=== PATIENT | female | born 1960 | race Caucasian/White ===

== ENCOUNTER 2023-12-25 17:21 | Emergency (ER) | payer OTHER, SELFPAY ==
[2023-12-25 17:22] VITALS: BP 130/75; PULSE 65; RESP 18; TEMP 36.2; O2SAT 96; BMI 27.6
--- NOTE | 2023-12-25 18:58 | EDS_ITS ---
HPI <DADA Lawson - Last Filed: 12/25/23 21:47> History of Present Illness Chief Complaint: Edema Narrative Narrative: Patient presenting today with bilateral lower extremity edema she has had over the past 2 weeks. She reports that she did see her PCP for this, they obtained blood work about 2 weeks ago and told her that everything looked normal except that her cholesterol was slightly high. She denies any history of CHF. She reports that she does spend a lot time standing throughout the day. The swelling does get slightly better overnight but does not completely go away. She denies any history of blood clots or recent surgery/procedures/ travel/immobilization. She reports that her legs feel tight but do not necessarily hurt. She denies any chest pain or shortness of breath. PFSH <DADA Lawson - Last Filed: 12/25/23 21:47> [facility] Medical History no medical history Home Medications NK 12/25/23 [History Last Taken Unknown] furosemide 20 mg tablet (Lasix) 20 mg PO DAILY #7 tabs 12/25/23 [Rx Last Taken Unknown] Allergy/AdvReac Type Severity Reaction Status Date / Time No Known Allergies Allergy Verified 12/25/23 17:22 Social History Smoking Status: Never smoker ROS <DADA Lawson - Last Filed: 12/25/23 21:47> ROS ED Constitutional Constitutional ED: Denies chills or fever(s) Cardiovascular Cardiovascular: Denies chest pain Respiratory/Chest Respiratory/Chest: Denies cough or dyspnea Gastrointestinal Gastrointestinal: Denies abdominal pain, nausea or vomiting Musculoskeletal Musculoskeletal: Denies arthralgias or myalgias Integumentary Denies rash Neurologic Neurologic: Denies paresthesias or weakness EXAM <DADA Lawson - Last Filed: 12/25/23 21:47> Physical Exam Const Vital Signs: 12/25/23 17:22 12/25/23 18:53 12/25/23 19:21 Temperature 97.2 F L Temperature Source Temporal Pulse Rate 65 65 Respiratory Rate 18 16 Respiratory Effort Normal Respiratory Pattern Normal Blood Pressure 130/75 H 129/74 H Blood Pressure Mean 93 92 Pulse Ox 96 96 Oxygen Delivery Method Room Air Room Air 12/25/23 19:55 Temperature 98.4 F Temperature Source Pulse Rate 65 Respiratory Rate 19 H Respiratory Effort Respiratory Pattern Blood Pressure 138/86 H Blood Pressure Mean 103 Pulse Ox 96 Oxygen Delivery Method Positive well nourished, well developed and no apparent distress General Appearance ED: well developed HEENT Reports normocephalic and head/scalp atraumatic Mouth ED: Yes moist mucous membranes normal Eyes PERRL and EOMs intact bilaterally Neck full ROM and supple Chest Wall inspection of chest normal Resp normal respiratory effort and clear to auscultation bilaterally Cardio regular rate and regular rhythm GI soft to palpation, non-tender, non-distended and no masses Back/Spine normal ROM and normal to inspection Extremity full ROM Extremity Narrative: Bilateral 1+ pitting edema below the knees. Bilateral DP pulse 2+, good capillary refill, sensation intact Neuro oriented x3, CN's II-XII intact bilaterally, moves all extremities, no focal motor deficits and no sensory deficits noted Sensorium / Orientation: awake and alert Psych mental status grossly normal and thought process normal Skin no rashes or lesions noted and no wounds <Dr. Taco Almonte MD - Last Filed: 12/25/23 20:17> Physical Exam Const Vital Signs: 12/25/23 17:22 12/25/23 18:53 12/25/23 19:21 Temperature 97.2 F L Temperature Source Temporal Pulse Rate 65 65 Respiratory Rate 18 16 Respiratory Effort Normal Respiratory Pattern Normal Blood Pressure 130/75 H 129/74 H Blood Pressure Mean 93 92 Pulse Ox 96 96 Oxygen Delivery Method Room Air Room Air 12/25/23 19:55 Temperature 98.4 F Temperature Source Pulse Rate 65 Respiratory Rate 19 H Respiratory Effort Respiratory Pattern Blood Pressure 138/86 H Blood Pressure Mean 103 Pulse Ox 96 Oxygen Delivery Method [facility] <DADA Lawson - Last Filed: 12/25/23 21:47> [facility] Narrative Medical decision making narrative: Patient presenting today due to bilateral lower extremity edema that she has had over the past 2 weeks. The swelling is equal. Low suspicion for DVT. CBC and CMP obtained. We did consider running a BNP however our machine is down. Patient does have hypoalbuminemia at 1.8. She does not appear to be malnourished. We did discuss increasing protein in the diet. She will be given a weeks worth of 20 mg Lasix to be taken daily. I have encouraged that she follow-up closely with her PCP and she will be discharged home in stable condition. Lab Data Attestation: I reviewed the patient's lab results. Lab results narrative: Albumin 1.8 Labs: Laboratory Results - last 24 hr 12/25/23 19:00 WBC 4.9 RBC 4.59 Hgb 13.4 Hct 40.6 MCV 88.5 MCH 29.2 MCHC 33.0 RDW Std Deviation 42.0 RDW Coeff of Jose 13.0 Plt Count 255 MPV 9.3 Immature Gran % (Auto) 0.200 Neut % (Auto) 64.0 Lymph % (Auto) 25.3 [place] % (Auto) 7.3 Eos % (Auto) 2.6 Baso % (Auto) 0.6 Absolute Neuts (auto) 3.1 Absolute Lymphs (auto) 1.24 Nucleated RBC % 0 Sodium 138 Potassium 4.2 Chloride 108 H Carbon Dioxide 25.0 Anion Gap 5 BUN 16 Creatinine 0.62 Estim Creat Clear Calc 87.67 Est GFR (MDRD) Af Amer 124 Est GFR (MDRD) Non-Af 103 BUN/Creatinine Ratio 25.8 H Glucose 99 Calcium 8.0 L Total Bilirubin 0.20 AST 27 ALT 29 Alkaline Phosphatase 58 Total Protein 5.3 L Albumin 1.8 L Globulin 3.5 Albumin/Globulin Ratio 0.5 L <Dr. Taco Almonte MD - Last Filed: 12/25/23 20:17> [facility] Lab Data Labs: Laboratory Results - last 24 hr 12/25/23 19:00 WBC 4.9 RBC 4.59 Hgb 13.4 Hct 40.6 MCV 88.5 MCH 29.2 MCHC 33.0 RDW Std Deviation 42.0 RDW Coeff of Jose 13.0 Plt Count 255 MPV 9.3 Immature Gran % (Auto) 0.200 Neut % (Auto) 64.0 Lymph % (Auto) 25.3 [place] % (Auto) 7.3 Eos % (Auto) 2.6 Baso % (Auto) 0.6 Absolute Neuts (auto) 3.1 Absolute Lymphs (auto) 1.24 Nucleated RBC % 0 Sodium 138 Potassium 4.2 Chloride 108 H Carbon Dioxide 25.0 Anion Gap 5 BUN 16 Creatinine 0.62 Estim Creat Clear Calc 87.67 Est GFR (MDRD) Af Amer 124 Est GFR (MDRD) Non-Af 103 BUN/Creatinine Ratio 25.8 H Glucose 99 Calcium 8.0 L Total Bilirubin 0.20 AST 27 ALT 29 Alkaline Phosphatase 58 Total Protein 5.3 L Albumin 1.8 L Globulin 3.5 Albumin/Globulin Ratio 0.5 L Treatment and Re-Evaluation Comments:: I have personally performed a face to face assessment of the patient and have reviewed the KIRK Note. I performed a substantive portion of the visit including all aspects of the following. My liz findings include: History is 2 weeks of gradually worsening edema both lower extremities symmetr ically. No orthopnea, dyspnea, chest tightness, syncope, palpitations. Never had this before. No recent long immobilization or history of DVT. Exam is bilateral lower extremity edema up to the knees symmetric, no calf tenderness, signs of cellulitis, palpable cords. Lungs clear to auscultation. Medical Decison Making Labs reviewed. They show a low albumin level, which may be causing loss of oncotic pressure and responsible for the edema that is dependent in her lower extremities symmetrically. Low likelihood of venous thrombosis here. Patient had a BNP performed as an outpatient, our machine is down and we are not able to run it right now. Advise close outpatient follow- up, if she is not able to follow-up quickly at least I would recommend increasing protein intake in her diet which we discussed. Other additions or changes: [None] Discharge Plan Triage Chief Complaint: Edema ED Midlevel Provider: Miranda Guevara ED Provider: Taco Almonte Dx/Rx/DC Orders Clinical Impression: Lower extremity edema, Hypoalbuminemia Instructions: ED Peripheral Edema, Bilateral Prescriptions: New furosemide [Lasix] 20 mg tablet 20 mg PO DAILY Qty: 7 0RF No Action NK Primary Care Provider: Santi Segovia Referrals: Santi Segovia DO [Primary Care Provider] - 5-7 Days Activity Restrictions/Additional Instructions: Follow-up with your PCP and return for any worsening of your symptoms. Disposition Disposition: Home, Self Care Discharge Date/Time: 12/25/23 20:13
[2023-12-25 19:13] LABS: Absolute Lymphocyte Count 1.24 X10^3/uL (0.83-4.51); Absolute Neutrophil Count 3.1 X10^3/uL (2.0-7.7); Basophil# 0.03 X10^3/uL; Basophil% 0.6 % (0-1); Eosinophil# 0.13 X10^3/uL; Eosinophils% 2.6 % (0-5); Hematocrit 40.6 % (37-47); Hemoglobin 13.4 g/dL (12.0-15.0); Lymphocyte # 1.24 X10^3/ul (0.83-4.51); Lymphocyte % 25.3 % (19-41); Mean Corpuscular Hgb 29.2 pg (27.0-32.0); Mean Corpuscular Volume 88.5 fL (81-99); Mean Platelet Vol. 9.3 fl (6.2-12.0); Monocyte# 0.36 X10^3/uL; Monocyte% 7.3 % (0-10); NRBC Flagged by Analyzer 0 % (0-5); Neutrophil # 3.14 X10^3/uL (2.7-7.7); Platelet Count 255 K/mm3 (150-450); Red Blood Count 4.59 M/mm3 (4.2-5.4); White Blood Count 4.9 K/mm3 (4.4-11.0)
[2023-12-25 19:21] VITALS: BP 129/74; PULSE 65; RESP 16; O2SAT 96
[2023-12-25 19:32] LABS: ALB/GLOB Ratio 0.5 RATIO (0.9-2.4); AST(SGOT) 27 U/L (15-37); Alanine Aminotransfer ALT/SGPT 29 U/L (13-56); Albumin, Serum 1.8 g/dL (3.2-5.0); Alkaline Phosphatase 58 U/L (45-117); Anion Gap 5 (5-15); BUN 16 mg/dL (7-18); BUN/Creat Ratio 25.8 RATIO (10-20); Chloride 108 mmol/L (98-107); Creatinine, Serum 0.62 mg/dL (0.55-1.02); EST Glomerular Filtration Rate 103 mL/min (>60); Est Glom Filt Rate - Afr Amer 124 mL/min (>60); Estimated Creatinine Clearance 87.67 ml/min; Globulin 3.5 g/dL (2.2-4.2); Glucose 99 mg/dL (74-106); Potassium 4.2 mmol/L (3.5-5.1); Protein, Total 5.3 g/dL (6.4-8.2); Sodium Level 138 mmol/L (136-145)
[2023-12-25 19:55] VITALS: BP 138/86; PULSE 65; RESP 19; TEMP 36.9; O2SAT 96
== END 2023-12-25 20:13 | disposition home or self-care (01) ==
PROVIDERS: Physician Assistant; Emergency Provider Emergency Medicine; PCP Family Medicine; Visit Provider Emergency Medicine
DX: E88.09 Other disorders of plasma-protein metabolism, not elsewhere classified (principal); R60.0 Localized edema
CPT/HCPCS: 80053; 85025; 99283; A4216

== ENCOUNTER 2023-12-27 12:12 | Observation (INO) | payer OTHER, SELFPAY ==
[2023-12-27] VITALS (8 sets, daily range): BP systolic 130–136; BP diastolic 72–81; PULSE 58–87; RESP 16–19; TEMP 36.6–36.8; O2SAT 94–100; BMI 27.8; BMI 27.1
--- NOTE | 2023-12-27 15:07 | VDLE_ITS ---
Reason For Study: Bilateral leg swelling RIGHT LEFT GSV is normal. GSV is normal. CFV is compressible, spontaneous, phasic, CFV is compressible, spontaneous, phasic, competent and demonstrates normal competent, and demonstrates normal augmentation. augmentation. FV is compressible, spontaneous, phasic, FV is compressible, spontaneous, phasic, competent and demonstrates normal competent and demonstrates normal augmentation. augmentation. POP V is compressible, spontaneous, phasic, POP V is compressible, spontaneous, phasic, competent and demonstrates normal competent and demonstrates normal augmentation. augmentation. T/P Trunk is compressible. T/P Trunk is compressible. PTV is compressible. PTV is compressible. RT PerV is compressible. LT PerV is compressible. Procedure This is a venous duplex using B-mode, color flow and spectral Doppler. Exam performed portable in ED. A preliminary report was called and/or faxed to Dr. Paulson. VL/Venous Duplex US - Dwain Extrem Interpretation Summary No evidence for acute deep venous thrombosis bilateral lower extremities with p atent and compressible bilateral great saphenous veins. Ordering Physician: Katia Paulson Referring Physician: Santi Segovia Performed By: Anabella Cates RVT
--- NOTE | 2023-12-27 15:07 | CT_ITS ---
INDICATION: constipation, abdominal pain EXAMINATION: CT ABDOMEN AND PELVIS WITH CONTRAST - CT Abdomen And Pelvis W/ Contrast Injection TECHNIQUE: Helically acquired images were obtained of the abdomen and pelvis following IV contrast. A radiation dose optimization technique was used for this scan. IV Contrast dosage and agent: 100 cc [id number] Oral contrast: None. COMPARISON: None. FINDINGS: LOWER CHEST: Bibasilar dependent changes with trace pleural effusions. No cardiomegaly or pericardial effusion. LIVER: Hepatomegaly, 22 cm. No concerning focal mass. GALLBLADDER AND BILIARY TREE: Calcified gallstones. No gallbladder distension or wall edema. No intra- or extrahepatic biliary ductal dilation. PANCREAS: No focal cystic or solid mass. SPLEEN: Normal size without focal cystic or solid mass. ADRENAL GLANDS: No nodules. KIDNEYS AND URETERS: Normal renal size and position. No hydronephrosis. PERITONEUM: No free air. Trace pelvic ascites. BOWEL: Normal appendix. No stomach or bowel distension. Increased fluid contents in the descending colon. LYMPH NODES: No enlarged mesenteric or retroperitoneal lymph nodes. VESSELS: Aorta is non-dilated. URINARY BLADDER: Unremarkable. REPRODUCTIVE ORGANS: No pelvic masses. Prominent pelvic vessels. ABDOMINAL WALL: Fat-containing umbilical hernia. BONES: No acute or aggressive abnormality. CT/Abdomen/Pelvis W IV Cont ONLY IMPRESSION: Trace bibasilar pleural effusions. Bowel changes consistent with diarrheal illness. Cholelithiasis without CT changes of acute cholecystitis. Possible pelvic congestion syndrome. Electronically Signed: Zach Thakur MD at 17:11 EDT ,
--- NOTE | 2023-12-27 15:09 | EDS_ITS ---
HPI History of Present Illness Chief Complaint: Constipation Detail of Chief Complaint: Constipation and leg edema Informant: patient Narrative Narrative: Patient presents to the emergency department with complaint of constipation. Patient states she has not had a good bowel movement in 3 to 4 weeks. She had a small bowel movement today. That seem to relieve some of the pressure in her abdomen. Patient also states that she has had leg edema for about 3 weeks. Patient did have travel in November to [place]. She denies any chest pain or shortness of breath. No history of PE or DVT. She was seen in the emergency department 2 days ago for edema in her legs and was noted to have low albumin and was told to increase her protein intake and was started on Lasix 20 mg a day. Patient is only taken 1 dose of Lasix. PFSH PFSH Medical History no medical history Home Medications ?Medication ?Instructions ?Recorded ?Last Taken ?Type atorvastatin 40 mg tablet 40 mg PO QHS 12/27/23 12/26/23 History Allergy/AdvReac Type Severity Reaction Status Date / Time No Known Allergies Allergy Verified 12/27/23 12:15 Surgical History no surgical history Social History Smoking Status: Never smoker ROS ROS ED Review of Systems ROS Unobtainable: other Constitutional Constitutional ED: Reports lethargy; Denies chills, fever(s), sweats or weight loss Eyes Eyes: Denies blurry vision, change in vision or diplopia ENT ENT ED: Denies rhinorrhea or sore throat Cardiovascular Cardiovascular: Denies chest pain, orthopnea or racing heartbeat Respiratory/Chest Respiratory/Chest: Denies cough, dyspnea, dyspnea on exertion, orthopnea or sputum Gastrointestinal Gastrointestinal: Reports abdominal pain and constipation; Denies diarrhea, nausea or vomiting Genitourinary Genitourinary ED: Denies dysuria, hematuria or urinary frequency Musculoskeletal Musculoskeletal: Reports other Details: Bilateral leg edema ; Denies arthralgias, back pain, myalgias or neck pain Integumentary Denies abscess, Abrasions or rash Neurologic Neurologic: Denies headache(s) or weakness Psychiatric Psychiatric: Denies anxiety, depression or suicidal thoughts Endocrine Endocrinology: Denies polydipsia, polyphagia or polyuria Hematologic/Lymphatic Hematologic/Lymphatic: Denies easy bleeding, easy bruising or lymphadenopathy Allergic/Immunologic Allergic/Immunologic ED: Denies mouth swelling, tongue swelling or urticaria EXAM Physical Exam Const Vital Signs: 12/27/23 12:12 12/27/23 14:12 12/27/23 14:58 Temperature 98.2 F Temperature Source Temporal Pulse Rate 72 87 Respiratory Rate 18 18 Respiratory Effort Normal Non-Labored Respiratory Pattern Normal Blood Pressure 130/78 H 134/74 H Blood Pressure Mean 95 94 Pulse Ox 96 100 Oxygen Delivery Method Room Air Room Air 12/27/23 16:00 Temperature Temperature Source Pulse Rate 58 L Respiratory Rate 16 Respiratory Effort Respiratory Pattern Blood Pressure 134/79 H Blood Pressure Mean 97 Pulse Ox 94 Oxygen Delivery Method Room Air Positive well nourished and well developed General Appearance ED: well developed and NAD HEENT Reports TM's clear and moist mucous membranes normocephalic and atraumatic; Negative for trauma or tenderness Tympanic Membrane ED: Yes TM's clear Eyes PERRL and EOMs intact bilaterally General Eye ED: Negative for pale conjunctiva or scleral icterus Neck no lymphadenopathy, supple and no JVD General: Negative for tenderness Chest Wall inspection of chest normal and palpation of chest normal Chest: Negative for tenderness Resp normal respiratory effort and clear to auscultation bilaterally Effort and Inspection: Negative for respiratory distress or pain with movement Auscultation: Negative for rhonchi, wheezes or diminished lung sounds Cardio regular rate, regular rhythm, S1 normal heart sound, S2 normal heart sound and no murmurs Peripheral Pulses: pulses 2+ throughout GI normal to inspection, nondistended, normoactive bowel sounds, soft to palpation, non-distended and no masses GI Narrative: Mild diffuse tenderness. No rebound, rigidity, or peritoneal signs. No mass palpated Back/Spine no CVA tenderness and no thoracic nor lumbar tenderness Extremity Extremity Narrative: +3 pitting edema both lower extremities from below the knees to the feet. No cellulitic changes. General Extremety ED: Negative for edema General Extremity: Negative for edema Neuro oriented x3, CN's II-XII intact bilaterally, no sensory deficits noted and gait normal Sensorium / Orientation: awake, alert, oriented to person, oriented to place and oriented to time Motor Exam: strength 5/5 throughout and strength abnormal Psych mental status grossly normal Skin no rashes or lesions noted and no wounds MDM MDM MDM Narrative Medical decision making narrative: Patient presents with constipation and edema to both lower extremities. Patient has not been eating like normal. She did have a bowel movement this morning. IV line established. CBC with differential white count 5.9 with hemoglobin 12.6 and platelet count of 265. Chemistries unremarkable. BNP slightly elevated 104.3. Albumin was 0.5. CT scan of the abdomen pelvis obtained showed gallstones without evidence of cholecystitis and showed possible pelvic congesti on syndrome. Patient had trace bilateral pleural effusions. Patient was ordered Lasix 40 mg IV. Discussed case with hospitalist will evaluate patient for admission for an observation period for diuresis. Lab Data Attestation: I reviewed the patient's lab results. Labs: Laboratory Results - last 24 hr 12/27/23 15:20 WBC 5.9 RBC 4.43 Hgb 12.6 Hct 38.7 MCV 87.4 MCH 28.4 MCHC 32.6 RDW Std Deviation 41.1 RDW Coeff of Jose 12.9 Plt Count 265 MPV 9.7 Immature Gran % (Auto) 0.200 Neut % (Auto) 68.5 Lymph % (Auto) 22.0 [place] % (Auto) 7.1 Eos % (Auto) 1.5 Baso % (Auto) 0.7 Absolute Neuts (auto) 4.1 Absolute Lymphs (auto) 1.30 Nucleated RBC % 0 Sodium 137 Potassium 3.9 Chloride 107 Carbon Dioxide 28.0 Anion Gap 2 L BUN 19 H Creatinine 0.64 Estim Creat Clear Calc 85.24 Est GFR (MDRD) Af Amer 119 Est GFR (MDRD) Non-Af 99 BUN/Creatinine Ratio 29.5 H Glucose 98 Calcium 8.1 L Total Bilirubin 0.30 AST 25 ALT 26 Alkaline Phosphatase 64 Troponin I High Sens 6 B-Natriuretic Peptide 104.3 H Total Protein 5.2 L Albumin 1.8 L Globulin 3.4 Albumin/Globulin Ratio 0.5 L Radiography Diagnostic Testing: Clinical Impression(s) from Imaging Studies Abdomen/Pelvis CT 12/27/23 15:07 IMPRESSION: Trace bibasilar pleural effusions. Bowel changes consistent with diarrheal illness. Cholelithiasis without CT changes of acute cholecystitis. Possible pelvic congestion syndrome. Electronically Signed: Zach Thakur MD at 17:11 EDT , EKG Initial EKG: Attestation: I personally reviewed and interpreted this EKG as follows: Comments: Sinus rhythm with rate of 63 bpm with no acute ST segment changes Discharge Plan Dx/Rx/DC Orders Clinical Impression: Leg edema, Constipation, Pleural effusion Disposition Disposition: Acute Care [facility]
[2023-12-27 15:35] LABS: Absolute Neutrophil Count 4.1 X10^3/uL (2.0-7.7); Basophil# 0.04 X10^3/uL; Basophil% 0.7 % (0-1); Eosinophil# 0.09 X10^3/uL; Eosinophils% 1.5 % (0-5); Hematocrit 38.7 % (37-47); Hemoglobin 12.6 g/dL (12.0-15.0); Mean Corp Hgb Conc 32.6 g/dL (32-36); Mean Corpuscular Hgb 28.4 pg (27.0-32.0); Mean Corpuscular Volume 87.4 fL (81-99); Mean Platelet Vol. 9.7 fl (6.2-12.0); Monocyte# 0.42 X10^3/uL; Monocyte% 7.1 % (0-10); NRBC Flagged by Analyzer 0 % (0-5); Neutrophil # 4.06 X10^3/uL (2.7-7.7); Neutrophil % 68.5 % (47-70); Platelet Count 265 K/mm3 (150-450); RBC Distribution Width CV 12.9 % (11.6-14.6); RBC Distribution Width SD 41.1 fl (35.1-43.9); Red Blood Count 4.43 M/mm3 (4.2-5.4); White Blood Count 5.9 K/mm3 (4.4-11.0)
[2023-12-27 16:07] LABS: ALB/GLOB Ratio 0.5 RATIO (0.9-2.4); AST(SGOT) 25 U/L (15-37); Alanine Aminotransfer ALT/SGPT 26 U/L (13-56); Albumin, Serum 1.8 g/dL (3.2-5.0); Alkaline Phosphatase 64 U/L (45-117); Anion Gap 2 (5-15); BNP,B-Type NATRIURETIC PEPTIDE 104.3 pg/mL (0-100); BUN 19 mg/dL (7-18); BUN/Creat Ratio 29.5 RATIO (10-20); Calcium,Total 8.1 mg/dL (8.5-10.1); Chloride 107 mmol/L (98-107); Creatinine, Serum 0.64 mg/dL (0.55-1.02); EST Glomerular Filtration Rate 99 mL/min (>60); Est Glom Filt Rate - Afr Amer 119 mL/min (>60); Estimated Creatinine Clearance 85.24 ml/min; Globulin 3.4 g/dL (2.2-4.2); Glucose 98 mg/dL (74-106); Potassium 3.9 mmol/L (3.5-5.1); Protein, Total 5.2 g/dL (6.4-8.2); Sodium Level 137 mmol/L (136-145); Troponin-I HS 6 pg/mL (3.0-54.0)
[2023-12-27] MEDS: Furosemide 40 MG/4 ML Vial IV ×2 (17:50→20:18)
--- NOTE | 2023-12-27 17:55 | PCM.HP.STD ---
HPI - General General Date of Admission: 12/27/23 Date of Service: 12/27/23 Chief Complaint: LE edema, constipation. HPI Narrative The patient is a 63 y/o F w/ PMHx: HLD w/ initial presentation to the ED on 12/25/2023 secondary to lower extremity swelling noted over the last 2 weeks with PCP evaluation with blood work obtained at that time with us reportedly cholesterol mildly elevated otherwise not severe appearing but she does report a significant history of standing throughout the day and the swelling does improve slightly overnight but does not completely dissipate with her legs noted to feel tight but not hurt with no dyspnea or chest discomfort prescribed Lasix 20 mg p.o. daily #7 tabs and discharged home at that time with plan to follow-up with her PCP who now represents to the [facility] ED on 12/27/23 with persistent edema to bilateral lower extremities although patient notes she only too one lasix tablet since her discharge from the ED 2 days prior in addition to reported sensation of constipation with no abdominal pain but given these symptoms prompted ED return for re-evaluation. Recent evaluation and current work-up in the ED included 12/25/2023 7 PM vital signs with T97.2, heart rate 65, respiratory rate 18, BP 129/74, respiratory rate 96% on room air, with noted CBC with WBC 4.9, hemoglobin 13.4, MCV 88.5, platelet 255 without marked shift, CMP with sodium 138, potassium 4.2, chloride 108, BUN/creatinine 16/0.62, GFR 103, calcium 8.0 otherwise hepatic profile not marked appearing, repeat presentation with 12/27/2023 with vital signs T90.2, heart rate 72, BP 130/70, respiratory rate 18, 96% on room air, CBC with WBC 5.9, hemoglobin 12.6, MCV 87.4, platelet 265 without marked shift, BNP 104.3, CMP with sodium 137, potassium 3.9, chloride 107, BUN/creatinine 19/0.64, GFR 99, hepatic profile with calcium 8.1 otherwise not marked appearing, troponin 6, EKG with SR without acute evidence of ischemia, CT with IV contrast abdomen and plevis with trace bilateral small effusions, cholelithasis with no evidence of cholecystitis, bowel changes consistent with possible recent diarrheal illness, possible pelvic congestion syndrome. In the ED patient administered lasix 40 mg IV x 1. [facility] Medical History (Updated 12/27/23 @ 17:[address] Mónica Turner MD) HLD (hyperlipidemia) Medical History no medical history Home Medications ?Medication ?Instructions ?Recorded ?Last Taken ?Type atorvastatin 40 mg tablet 40 mg PO QHS 12/27/23 12/26/23 History Allergy/AdvReac Type Severity Reaction Status Date / Time No Known Allergies Allergy Verified 12/27/23 12:15 Family History (Updated 12/27/23 @ 18:[address] Mónica Turner MD) Father CAD (coronary artery disease) Heart disease Hypertension Mother Heart disease Hypertension Heart failure Surgical History (Updated 12/27/23 @ 17:[address] Mónica Turner MD) No history of previous surgery Surgical History no surgical history Social History (Updated 12/27/23 @ 17:[address] Mónica Turner MD) household members: spouse and family Smoking Status: Never smoker alcohol intake: never substance use type: does not use ROS ROS Narrative Admission Review of Systems: CONSTITUTIONAL: No weight loss, fever, chills, + weakness or fatigue. HEENT: Eyes: No visual loss, blurred vision, double vision or yellow sclerae. Ears, Nose, Throat: No hearing loss, sneezing, congestion, runny nose or sore throat. SKIN: No rash or itching, lesions, wounds except + occasional red lesion on her thigh, return intermittently she notes. CARDIOVASCULAR: + Increasing lower extremity swelling. No chest pain, chest pressure or chest discomfort, palpitations, orthopnea, syncopal events. RESPIRATORY: No shortness of breath, cough or sputum, wheezing, hemoptysis. GASTROINTESTINAL: No anorexia, nausea, vomiting or diarrhea, abdominal pain, melena, BRBPR. GENITOURINARY: No dysuria, frequency, urgency or retention. NEUROLOGICAL: No headache, dizziness, syncope, paralysis, ataxia, numbness or tingling in the extremities, focal weakness, change in bowel or bladder control, seizure. MUSCULOSKELETAL: + muscle, back pain, joint pain or stiffness. HEMATOLOGIC: No anemia, bleeding or bruising. LYMPHATICS: No enlarged nodes. No history of splenectomy. PSYCHIATRIC: No history of depression or anxiety. ENDOCRINOLOGIC: No reports of sweating, cold or heat intolerance. No polyuria or polydipsia. ALLERGIES: No history of asthma, hives, eczema or rhinitis. Vital Signs Vital Signs Vital Signs: 12/27/23 12:12 12/27/23 14:12 12/27/23 14:58 Temperature 98.2 F Temperature Source Temporal Pulse Rate 72 87 Respiratory Rate 18 18 Respiratory Effort Normal Non-Labored Respiratory Pattern Normal Blood Pressure 130/78 H 134/74 H Blood Pressure Mean 95 94 Pulse Ox 96 100 Oxygen Delivery Method Room Air Room Air 12/27/23 16:00 Temperature Temperature Source Pulse Rate 58 L Respiratory Rate 16 Respiratory Effort Respiratory Pattern Blood Pressure 134/79 H Blood Pressure Mean 97 Pulse Ox 94 Oxygen Delivery Method Room Air Weight Weight: 157 lb 8 oz Body Mass Index (BMI) 27.8 Physical Exam Narrative Physical Examination: General: Awake, alert, oriented x 3 and cooperative, seated upright in the ED bed, no acute distress. Skin: Normal color, normal turgor, no icterus, no cyanosis except occasional staged ecchymoses, small regions on the inner thigh of slightly raised red circular fungal appearing lesion HEENT: AT/NC, EOMI, PERRLA, MMM, no carotid bruits or JVD noted. Lungs: Mildly diminished, appropriate effort, no evidence any distress, no appreciated rales, ronchi or wheezing. Heart: Mildly bradycardic with regular rhythm; no gallop, rub audible. Abdomen: Soft, overweight, NTTP, mildly distended with tympany, hyperactive bowel sounds, no appreciated HSM. Extremities: No cyanosis, no clubbing, notable pedal to knee 3+ pitting edema. Neurological: Patient awake, alert, oriented as noted, cognitive function intact; pupils equally reactive to light and accommodation, cranial nerves grossly normal, moving all 4 extremities, no focal deficits, strength mildly globally decreased secondary to acute presentation complaints. Psychiatric: Affect appears fatigued otherwise normal, no acute evidence of depressive or anxiety feelings. Results Lab / Micro Data 12/27/23 15:20 12/27/23 15:20 Labs: Laboratory Results - last 24 hr 12/27/23 15:20: WBC 5.9, RBC 4.43, Hgb 12.6, Hct 38.7, MCV 87.4, MCH 28.4, MCHC 32.6, RDW Std Deviation 41.1, RDW Coeff of Jose 12.9, Plt Count 265, MPV 9.7, Immature Gran % (Auto) 0.200, Neut % (Auto) 68.5, Lymph % (Auto) 22.0, [place] % (Auto) 7.1, Eos % (Auto) 1.5, Baso % (Auto) 0.7, Absolute Neuts (auto) 4.1, Absolute Lymphs (auto) 1.30, Nucleated RBC % 0, Sodium 137, Potassium 3.9, Chloride 107, Carbon Dioxide 28.0, Anion Gap 2 L, BUN 19 H, Creatinine 0.64, Estim Creat Clear Calc 85.24, Est GFR (MDRD) Af Amer 119, Est GFR (MDRD) Non-Af 99, BUN/Creatinine Ratio 29.5 H, Glucose 98, Calcium 8.1 L, Total Bilirubin 0.30, AST 25, ALT 26, Alkaline Phosphatase 64, Troponin I High Sens 6, B-Natriuretic Peptide 104.3 H, Total Protein 5.2 L, Albumin 1.8 L, Globulin 3.4, Albumin/Globulin Ratio 0.5 L Imaging Radiology Impression Abdomen/Pelvis CT 12/27/23 15:07 IMPRESSION: Trace bibasilar pleural effusions. Bowel changes consistent with diarrheal illness. Cholelithiasis without CT changes of acute cholecystitis. Possible pelvic congestion syndrome. Electronically Signed: Zach Thakur MD at 17:11 EDT Reading Location ID and State: [facility] / [place] Tel , Service support , Assessment & Plan Assessment/Plan (1) Leg edema: PLAN: Plan The patient is a 63 y/o F w/ PMHx: HLD w/ initial presentation to the ED on 12/25/2023 secondary to lower extremity swelling noted over the last 2 weeks with PCP evaluation with blood work obtained at that time with us reportedly cholesterol mildly elevated otherwise not severe appearing but she does report a significant history of standing throughout the day and the swelling does improve slightly overnight but does not completely dissipate with her legs noted to feel tight and onset of constipation prompting ED return 12/27/23. #1. Bilateral lower extremity edema, worsening, unclear etiology with concern for possible heart failure but also complicated by hypoalbuminemia and imaging concern of questionable plevic congestion syndrome: Patient administered IV lasix in the ED, will admit to PCU to be cautious, will maintain on cardiac telemetry to be cautious, will obtain cardiac enzyme series, continue IV lasix diuresis, monitor I/Os, initiate baby aspirin but defer other therapy given IV diuresis and BP low normal, will additionally obtain TSH and magnesium level. Will request echocardiogram. Will place snug HILLARY wraps.Will consult nutrition for education and teaching given low albumin/protein. Given concern on imaging of plevic congestion syndrome pending response to diuresis and evaluation to assure no cardiac etiology may need to then consider Vascular surgery consultation to further weight in about her pelvic venous system. #2. Constipation: Will administer MiraLAX dose x 1 and have as needed agents thereafter, continue to monitor. #3. Hyperlipidemia: We will continue patient on statin therapy, recent outpatient reported FLP thus will not repeat immediately. #4. Superficial fungal infection: Noted mostly on the inner thigh, will initiate antifungal topical agent. #5. DVT prophylaxis: Lovenox. #6. CODE status: Patient living will is in place but healthcare power of real estate associate attorney is not however her who is present would be her medical decision-maker if she was unable. Discussed CODE status at length including difference between FULL code, DNR-CCA and DNR-CC status. Following discussions about the differences in these status, requested Full Code although initially with discussions she is uncertain but for now will remain full code she notes. Advanced Care Planning Face to Face Time: 16 minutes. Charges/Coding Visit Charges Inpatient E&M: 64172 Init Hosp L2 Procedures Hospitalists Procedures: 72137 Advncd Care Plan 30 Min
[2023-12-27 18:23] LABS: Bacteria 0 SEEN /hpf (None Seen); Mucous, Urine 0 SEEN /hpf (<or=2+); Squamous Epithelial Cells - UA 0 SEEN /hpf (5-10)
[2023-12-27 18:27] LABS: Color, Urine Yellow (Yellow); Glucose, Dipstick Normal (Normal); Ketone-Dipstick 15 mg/dl (Negative); Leukocyte Esterase-Dipstick 25 /ul (Negative); Nitrite-Dipstick Negative (Negative); Occult Blood-Urine 25 /ul (Negative); Protein-Dipstick 500 mg/dl (Negative); Urine Bilirubin Dipstick Negative (Negative); Urine Clarity Clear (Clear); Urine Urobilinogen Normal (Normal)
[2023-12-27 18:31] LABS: Magnesium 2.1 mg/dL (1.6-2.6)
[2023-12-27 18:33] LABS: Red Blood Cells-Urine 0-5 SEEN /hpf (0-5); White Blood Cells 0-5 SEEN /hpf (0-5)
--- NOTE | 2023-12-27 19:22 | ECHOD_ITS ---
Reason For Study: CHF Procedure This was a 2D Doppler, Color Flow transthoracic echocardiogram. Exam performed portable in patient room. Left Ventricle Normal LV size. Left ventricular systolic function is normal. The estimated ejection fraction is 65 %. Normal diastololic function. Right Ventricle Normal RV size. Normal systolic function. Atria The left and right atria are normal. Mitral Valve The mitral valve is structurally normal. No prolapse or stenosis seen. Mild (1+) mitral valve insufficiency. Tricuspid Valve Normal tricuspid valve. Trivial tricuspid valve insufficiency. Pulmonary artery systolic pressure is 35 mmHg. Aortic Valve Trisinus/trileaflet aortic valve. Mild focal aortic valve thickening. Aortic sclerosis, no stenosis. Mild (1+) aortic valve insufficiency. Pulmonic Valve Normal pulmonic valve. Trivial pulmonic valve insufficiency. Great Vessels Normal aortic root. Pericardium/Pleural No pericardial effusion. Epicardial fat. MMode/2D Measurements & Calculations LVIDd: 4.8 cm IVSd: 0.80 cm Ao root diam: 2.9 cm LVIDs: 3.4 cm LVPWd: 0.88 cm RVDd: 3.5 cm FS: 29.8 % LAV(MOD-bp): 35.6 ml LVAd ap4: 25.1 cm2 SV(MOD-sp4): 46.7 ml LAV(MOD-bp) Indexed: 20.4 ml/m2 LVLd ap4: 7.6 cm LAV(MOD-sp2): 33.5 ml EDV(MOD-sp4): 69.1 ml LAV(MOD-sp4): 33.4 ml EDV(sp4-el): 71.0 ml LVAs ap4: 12.6 cm2 LVLs ap4: 6.2 cm ESV(MOD-sp4): 22.4 ml ESV(sp4-el): 21.6 ml EF(MOD-sp4): 67.6 % EF(sp4-el): 69.6 % SV(sp4-el): 49.4 ml LA A4 area: 15.0 cm2 LA dimension(2D): 3.4 cm RA A4 area: 14.8 cm2 TAPSE: 2.8 cm Time Measurements MV dec time: 0.23 sec Doppler Measurements & Calculations MV E max santi: 77.4 cm/sec Lat Peak E' Santi: 11.2 cm/sec Med Peak E' Santi: 9.2 cm/sec MV A max santi: 85.8 cm/sec E/E' lat: 6.9 E/E' med: 8.4 MV E/A: 0.90 Ao V2 max: 160.0 cm/sec LV V1 max: 143.6 cm/sec MV dec slope: 331.9 cm/sec2 Ao max P.2 mmHg LV V1 max P.2 mmHg Ao V2 mean: 109.8 cm/sec LV V1 mean P.2 mmHg Ao mean P.6 mmHg LV V1 mean: 93.9 cm/sec Ao V2 VTI: 39.8 cm LV V1 VTI: 34.3 cm AV (velocity ratio): 0.86 PA V2 max: 98.0 cm/sec TR max santi: 258.9 cm/sec TR max P.8 mmHg ECHO/Echo Complete Interpretation Summary The estimated ejection fraction is 65 %. Mild (1+) mitral valve insufficiency. Mild (1+) aortic valve insufficiency. Aortic sclerosis, no stenosis. Ordering Physician: Mónica Turner Referring Physician: Santi Segovia Performed By: Maria C Beckford RDCS, RVT
[2023-12-27] MEDS: Polyethylene Glycol 3350 17 GM PACKET PO (20:18)
[2023-12-27] MEDS: Atorvastatin Calcium 40 MG Tablet PO (20:18)
[2023-12-27 20:24] LABS: Troponin-I HS 6 pg/mL (3.0-54.0)
[2023-12-27 22:02] LABS: Troponin-I HS 7 pg/mL (3.0-54.0)
[2023-12-28 02:45] VITALS: BP 120/62; PULSE 73; RESP 18; TEMP 36.3; O2SAT 94
[2023-12-28] MEDS: Nystatin Ointment 1 APPLIC TOPICAL ×2 (05:20→14:20)
[2023-12-28 06:00] VITALS: BMI 27.1
[2023-12-28 07:39] LABS: Absolute Lymphocyte Count 1.29 X10^3/uL (0.83-4.51); Absolute Neutrophil Count 2.9 X10^3/uL (2.0-7.7); Basophil# 0.03 X10^3/uL; Basophil% 0.6 % (0-1); Eosinophil# 0.19 X10^3/uL; Eosinophils% 3.9 % (0-5); Hematocrit 37.2 % (37-47); Lymphocyte # 1.29 X10^3/ul (0.83-4.51); Lymphocyte % 26.3 % (19-41); Mean Corp Hgb Conc 32.3 g/dL (32-36); Mean Corpuscular Hgb 28.4 pg (27.0-32.0); Mean Corpuscular Volume 87.9 fL (81-99); Mean Platelet Vol. 10.5 fl (6.2-12.0); Monocyte# 0.47 X10^3/uL; Monocyte% 9.6 % (0-10); NRBC Flagged by Analyzer 0 % (0-5); Neutrophil # 2.92 X10^3/uL (2.7-7.7); Neutrophil % 59.4 % (47-70); Platelet Count 245 K/mm3 (150-450); Red Blood Count 4.23 M/mm3 (4.2-5.4); White Blood Count 4.9 K/mm3 (4.4-11.0)
[2023-12-28 08:42] LABS: ALB/GLOB Ratio 0.5 RATIO (0.9-2.4); AST(SGOT) 21 U/L (15-37); Alanine Aminotransfer ALT/SGPT 24 U/L (13-56); Albumin, Serum 1.5 g/dL (3.2-5.0); Alkaline Phosphatase 52 U/L (45-117); Anion Gap 4 (5-15); BUN 21 mg/dL (7-18); BUN/Creat Ratio 30.8 RATIO (10-20); Calcium,Total 7.5 mg/dL (8.5-10.1); Chloride 107 mmol/L (98-107); Creatinine, Serum 0.68 mg/dL (0.55-1.02); EST Glomerular Filtration Rate 92 mL/min (>60); Est Glom Filt Rate - Afr Amer 112 mL/min (>60); Estimated Creatinine Clearance 79.19 ml/min; Globulin 3.1 g/dL (2.2-4.2); Glucose 89 mg/dL (74-106); Potassium 3.8 mmol/L (3.5-5.1); Protein, Total 4.6 g/dL (6.4-8.2); Sodium Level 139 mmol/L (136-145); T4 Free Direct 0.94 ng/dL (0.76-1.46); Thyroid Stim Hormone (TSH) 3.35 uIU/mL (0.358-3.74)
[2023-12-28 08:55] VITALS: BP 122/68; PULSE 60; RESP 16; TEMP 36.8; O2SAT 94
[2023-12-28] MEDS: 0.9% Saline Lock 10 ML Syringe IV (09:03)
[2023-12-28] MEDS: Aspirin 81 MG TAB.CHEW PO (09:03)
[2023-12-28] MEDS: Furosemide 40 MG/4 ML Vial IV (09:04)
[2023-12-28 14:16] VITALS: BP 122/70; PULSE 68; RESP 16; TEMP 37; O2SAT 94
--- NOTE | 2023-12-28 14:49 | PCM.DC ---
Discharge Instructions Diet Discharge Diet: No restrictions Activity Discharge Activity: Return to Normal Activity Weight Bearing Status: Full weight bearing Follow Up Care Test Results: Test results from this visit will be discussed in further detail at your follow-up appointment, if applicable. Discharge Plan Admission Admit Date/Time: 12/27/23 17:49 Primary Reason for Your Visit: leg edema Attending Provider: Jay Jay Herrera Primary Care Provider: Santi Segovia Consulting Providers: Mónica Turner Discharge Orders/Prescriptions Prescriptions: New furosemide [Lasix] 40 mg tablet 40 mg PO DAILY Qty: 30 0RF potassium chloride 10 mEq tablet extended release 20 meq PO DAILY Qty: 60 0RF Continued atorvastatin 40 mg tablet 40 mg PO QHS Referrals / Follow Up: Santi Segovia DO [Primary Care Provider] - In 1 Week Disposition Disposition (needs filled in before D/C Order can be placed): Home, Self Care
--- NOTE | 2023-12-28 14:57 | PCM.DC.SUM ---
Providers Date of Admission: 12/27/23 Date of Discharge: 12/28/23 Primary Care Physician: Dr. Santi Segovia DO Reason For Visit: EDEMA Diagnosis Discharge Diagnosis (1) Leg edema: Status: Acute Code(s): R60.0 - Localized edema Plan 1. Lower leg edema-etiology unclear #2 hyperlipidemia Medications at Discharge Home Medications atorvastatin 40 mg tablet 40 mg PO QHS cholesterol 12/27/23 furosemide 40 mg tablet (Lasix) 40 mg PO DAILY #30 tabs 12/28/23 potassium chloride 10 mEq tablet,extended release 20 meq (2 x 10 mEq) PO DAILY #60 tabs 12/28/23 Hospital Course Operations None Procedures 2-D Echocardiogram Summary of Care Provided Minutes Spent on Discharge: 30 Hospital Course: This 63-year-old white female was seen in the emergency room at [facility] with complaints of lower extremity edema, she had been seen in the emergency room approximately 2 days prior and placed on oral Lasix and discharged home, she returned with complaints of continuing edema. She had no complaints of any shortness of breath. Patient stated she only had taken 1 dose of Lasix as an outpatient. Labs were obtained which showed normal CBC, beta natruretic peptide was slightly elevated at 104, CT scan of the abdomen pelvis showed gallstones without evidence of cholecystitis and it showed evidence of possible pelvic congestion syndrome. Patient was given IV Lasix in the emergency room, she was placed in observation status on PCU and underwent an echocardiogram and was placed on IV diuresis. Echocardiogram showed a normal EF, the exact reason for the patient's lower extremity edema was not determined. On 12/28/2023, patient was seen and examined: On examination she appeared in good health and spirits, she does not appear to be in any distress. Vital signs as documented. Skin warm and dry and without overt rashes. Neck without JVD, thyroid appears normal, trachea is midline, neck is supple. Lungs clear, normal air movement was noted. Heart exam notable for regular rhythm, normal sounds and absence of murmurs, rubs or gallops. Abdomen unremarkable and without evidence of organomegaly, masses, or abdominal aortic enlargement, bowel sounds are present in all 4 quadrants, no abdominal tenderness was noted. Extremities nonedematous, no cyanosis was noted, no clubbing was noted. Neuro: Cranial nerves II through XII are grossly intact, no focal motor deficits were noted, sensation to light touch and pinprick is intact, motor exam 5/5 throughout. Psych: Patient is alert and oriented x3, she does not appear anxious or depressed, she does not appear agitated. On 12/28/2023, patient was seen and examined and felt to be in stable condition for discharge home. Weight / BMI Weight Weight: 69.5 kg Body Mass Index (BMI) 27.1 ABG / Lab / Microbiology Data 12/28/23 06:40 12/28/23 06:40 Laboratory: Laboratory Results - last 24 hr 12/27/23 15:20: WBC 5.9, RBC 4.43, Hgb 12.6, Hct 38.7, MCV 87.4, MCH 28.4, MCHC 32.6, RDW Std Deviation 41.1, RDW Coeff of Jose 12.9, Plt Count 265, MPV 9.7, Immature Gran % (Auto) 0.200, Neut % (Auto) 68.5, Lymph % (Auto) 22.0, [place] % (Auto) 7.1, Eos % (Auto) 1.5, Baso % (Auto) 0.7, Absolute Neuts (auto) 4.1, Absolute Lymphs (auto) 1.30, Nucleated RBC % 0, Sodium 137, Potassium 3.9, Chloride 107, Carbon Dioxide 28.0, Anion Gap 2 L, BUN 19 H, Creatinine 0.64, Estim Creat Clear Calc 85.24, Est GFR (MDRD) Af Amer 119, Est GFR (MDRD) Non-Af 99, BUN/Creatinine Ratio 29.5 H, Glucose 98, Calcium 8.1 L, Magnesium 2.1, Total Bilirubin 0.30, AST 25, ALT 26, Alkaline Phosphatase 64, Troponin I High Sens 6, B-Natriuretic Peptide 104.3 H, Total Protein 5.2 L, Albumin 1.8 L, Globulin 3.4, Albumin/Globulin Ratio 0.5 L 12/27/23 18:00: Urine Color Yellow, Urine Clarity Clear, Urine pH 6.0, Ur Specific [place] 1.010, Urine Protein 500 H, Urine Glucose (UA) Normal, Urine Ketones 15 H, Urine Occult Blood 25 H, Urine Nitrite Negative, Urine Bilirubin Negative, Urine Urobilinogen Normal, Ur Leukocyte Esterase 25 H, Urine RBC 0-5 SEEN, Urine WBC 0-5 SEEN, Ur Squamous Epith Cells 0 SEEN, Urine Bacteria 0 SEEN, Urine Mucus 0 SEEN 12/27/23 19:48: Troponin I High Sens 6 12/27/23 21:29: Troponin I High Sens 7 12/28/23 06:40: WBC 4.9, RBC 4.23, Hgb 12.0, Hct 37.2, MCV 87.9, MCH 28.4, MCHC 32.3, RDW Std Deviation 42.0, RDW Coeff of Jose 13.0, Plt Count 245, MPV 10.5, Immature Gran % (Auto) 0.200, Neut % (Auto) 59.4, Lymph % (Auto) 26.3, [place] % (Auto) 9.6, Eos % (Auto) 3.9, Baso % (Auto) 0.6, Absolute Neuts (auto) 2.9, Absolute Lymphs (auto) 1.29, Nucleated RBC % 0, Sodium 139, Potassium 3.8, Chloride 107, Carbon Dioxide 28.0, Anion Gap 4 L, BUN 21 H, Creatinine 0.68, Estim Creat Clear Calc 79.19, Est GFR (MDRD) Af Amer 112, Est GFR (MDRD) Non-Af 92, BUN/Creatinine Ratio 30.8 H, Glucose 89, Calcium 7.5 L, Total Bilirubin 0.30, AST 21, ALT 24, Alkaline Phosphatase 52, Total Protein 4.6 L, Albumin 1.5 L, Globulin 3.1, Albumin/Globulin Ratio 0.5 L, TSH 3.35, Free T4 0.94 Radiography Diagnostic Testing: Radiology Impression Abdomen/Pelvis CT 12/27/23 15:07 IMPRESSION: Trace bibasilar pleural effusions. Bowel changes consistent with diarrheal illness. Cholelithiasis without CT changes of acute cholecystitis. Possible pelvic congestion syndrome. Electronically Signed: Zach Thakur MD at 17:11 EDT , Venous Doppler Study 12/27/23 15:07 Interpretation Summary No evidence for acute deep venous thrombosis bilateral lower extremities with patent and compressible bilateral great saphenous veins. Ordering Physician: Katia Paulson Referring Physician: Santi Segovia Performed By: Anabella Cates RVT Echocardiogram 12/27/23 19:22 Interpretation Summary The estimated ejection fraction is 65 %. Mild (1+) mitral valve insufficiency. Mild (1+) aortic valve insufficiency. Aortic sclerosis, no stenosis. Ordering Physician: Mónica Turner Referring Physician: Santi Segovia Performed By: Maria C Beckford RDCS, TEENA D/C Instructions Discharge Diet: No restrictions Weight Bearing Status: Full weight bearing Meaningful Use Info Meaningful Use Meaningful Use Diagnoses (Choose all that apply): None applicable Ischemic Stroke Statin Dosing Therapy Reference: STATIN DOSE THERAPY REFERENCE: * Patients > 75 years receive moderate or high dose statin therapy. * Patients 75 years or YOUNGER should receive HIGH intensity statin dose unless contraindicated. You will be required to document reason for non-treatment if statin daily dose does not meet guidelines. HIGH DOSE STATIN THERAPY DAILY Atorvastatin > than or = to 40 mg Rosuvastatin > than or = to 20 mg Amlodipine + Atorvastatin > than or = to 2.5/40 mg Ezetimibe + Simvastatin 10/80 mg Simvastatin 80mg Discharge Plan Admission Admit Date/Time: 12/27/23 17:49 Primary Reason for Your Visit: leg edema Attending Provider: Jay Jay Herrera Primary Care Provider: Santi Segovia Consulting Providers: Mónica Turner Discharge Orders/Prescriptions Prescriptions: New furosemide [Lasix] 40 mg tablet 40 mg PO DAILY Qty: 30 0RF potassium chloride 10 mEq tablet extended release 20 meq PO DAILY Qty: 60 0RF Continued atorvastatin 40 mg tablet 40 mg PO QHS Referrals / Follow Up: Santi Segovia DO [Primary Care Provider] - In 1 Week Disposition Disposition (needs filled in before D/C Order can be placed): Home, Self Care Charges/Coding Visit Charges Inpatient E&M: 75253 Disch Hosp
--- NOTE | 2023-12-28 15:33 | CASEMGMT ---
Patient has order for discharge. RN CM in to discuss needs at discharge. Patient denies needs or help at discharge. Patient had no further questions or concerns.
--- NOTE | 2023-12-28 15:43 | PHA.DC_ITS ---
Pharmacy [facility] has performed discharge medication reconciliation and counseling for this patient. 1. FUROSEMIDE 40MG PO DAILY 2. POTASSIUM CHLORIDE 20MEQ PO DAILY The patient's discharge medication list was reviewed for discrepancies and discrepancies were resolved. The patient was counseled on the following discharge medications and changes in medications for homegoing were reviewed. The Reason for Use, instructions for use, and potential side effects were reviewed for all new medications. The patient's questions regarding all of their medications were answered. The patient was able to verbally demonstrate an understanding of their discharge medications. Medications at Discharge Home Medications atorvastatin 40 mg tablet 40 mg PO QHS cholesterol 12/27/23 furosemide 40 mg tablet (Lasix) 40 mg PO DAILY #30 tabs 12/28/23 potassium chloride 10 mEq tablet,extended release 20 meq (2 x 10 mEq) PO DAILY #60 tabs 12/28/23
--- NOTE | 2023-12-28 16:14 | CHAPLAIN ---
Type of Pastoral Visit _x__ Initial Visit ___ Follow-up Visit ___ On-call Visit ___ General Patient Visit ___ Spiritual Assessment ___ Family Conference ___ Bereavement ___ Rapid Response ___ Code Blue ___ Other (describe below) Pastoral Care Referral From _x__ Patient ___ Family ___ Nurse ___ Physician ___ Tractor Crane Engineer ___ Negative Notcher ___ Other (describe below) Sacrament/Intervention _x__ Active listening ___ Anointing ___ Sikhism ___ Bereavement ___ Communion ___ Meghan exploration ___ ___ Life review ___ Prayer ___ Reconciliation ___ Sacrament of Sick ___ Supportive presence ___ Wedding ___ Other (describe below) Pastoral Comments patient explained her health situation and that she has had some good news about going home today; spouse is with her for support; pt talks about her blessing; no other needs
== END 2023-12-28 14:57 | disposition home or self-care (01) ==
LOC: ED 17:48 → PCU 18:18
PROVIDERS: Admitting Provider Family Medicine; Emergency Provider Emergency Medicine; PCP Family Medicine; Visit Provider Internal Medicine
DX: R60.0 Localized edema (principal); J90 Pleural effusion, not elsewhere classified; K80.20 Calculus of gallbladder without cholecystitis without obstruction; E78.5 Hyperlipidemia, unspecified; K59.00 Constipation, unspecified; B49 Unspecified mycosis
CPT/HCPCS: 36415; 74177; 80053; 81001; 83735; 83880; 84439; 84443; 84484; 85025; 93005; 93306; 93970; 96374; 96376; 97802; 99221; 99285; Q9967; A4216; G0378; J1940

== ENCOUNTER 2024-02-14 03:18 | Inpatient (IN) | payer OTHER, SELFPAY ==
[2024-02-14] VITALS (17 sets, daily range): BP systolic 113–139; BP diastolic 58–76; PULSE 65–82; RESP 16–18; TEMP 36.6–37.3; O2SAT 93–99; BMI 25.6; BMI 25.5
--- NOTE | 2024-02-14 | IMM_PTH ---
PATIENT: CHARLY SHEN LOC: [facility] U#:[id number] AGE/SX: 64/F ROOM: [facility] [place] RE02/14/[address]: Dr. Maximo Carrasco MD : 1960 BED: 1 DIS: 02/17/2024 SPEC #: [id number] RECD: 02/21/24 12:48 STATUS: OTIS REQ #: [id number] XAVI: 02/14/24 00:[address]: Maximo Carrasco DEPT: IMMUNOHISTOCHEMISTRY RECD BY: Wilfredo James ENTERED: 02/21/24 12:49 SP TYPE: IMMUNO OTHR DR: Dr. Santi Segovia DO Tissues: A - Colon, NOS Procedures: MSH2 (add) MLH-1 (add) MSH6 (add) Anti-PMS2 (add) KI-67 (add) P53 (add) MOC-31 (add) HER-2-EMILY (initial) PHYSICIAN & INSTITUTION [address] [address] SPECIMEN INFORMATION: Tissue Source: A- Distal transverse and descending colon Clinical Info: Intussusception of colon, colonic mass Specimen Number: [id number] CPT code: 55547,79353u6 METHODOLOGY: Deparaffinized sections of prefer/formalin-fixed tissue or PAP/DQ stained slides are incubated with monoclonal/polyclonal antibodies/oligonucleotide probes. Localization is made via biotin free immunoperoxidase method. Appropriate controls are performed and reacted as expected. Results on target cell population are indicated in the following table: RESULTS: ANTIBODY / CLONE RESULT Block A2 Her-2neu (CB11) negative (0) MOC-31 (4561) positive MLH-1 (M1) positive MSH2 (25D12) positive, focal, weak MSH6 (44) positive PMS2 (URH3654) positive Ki-67 (30-9) positive high P53 (DO-7) negative INTERPRETATION: A. Distal transverse colon, left hemicolectomy: Invasive adenocarcinoma arising in the background of villous adenoma. Positive (loss of mismatch protein; microsatellite instability detected). Partial loss of MSH2. SANTIAGO/ 02/22/24
--- NOTE | 2024-02-14 03:43 | CT_ITS ---
EXAM: CT ANGIOGRAPHY ABDOMEN AND PELVIS WITHOUT AND WITH INTRAVENOUS CONTRAST CLINICAL INDICATION: GI bleed TECHNIQUE: Helically acquired angiography images were obtained of the abdomen and pelvis without and with intravenous contrast. This CT exam was performed using one or more of the following dose reduction techniques: automated exposure control, adjustment of the mA and/or kV according to patient size, and/or use of iterative reconstruction technique. MIP reconstructed images were created and reviewed. CONTRAST: 75 cc of Isovue-370 IV. RADIATION DOSE: CTDIvol = 27.26 mGy, DLP = 648.26 mGy-cm COMPARISON: 12/27/2023. FINDINGS: VASCULATURE: AORTA: No acute findings. Normal caliber abdominal aorta. No dissection. CELIAC TRUNK AND MESENTERIC ARTERIES: No acute findings. No occlusion or significant stenosis. No dissection. RENAL ARTERIES: No acute findings. No occlusion or significant stenosis. No dissection. ILIAC ARTERIES: No acute findings. No occlusion or significant stenosis. No dissection. LOWER THORAX: Unremarkable. Lung bases are clear. No cardiomegaly. No significant pericardial effusion. ABDOMEN: LIVER: Unremarkable. Homogeneous. No focal mass. GALLBLADDER AND BILE DUCTS: Cholecystectomy. No intra- or extrahepatic biliary ductal dilation. PANCREAS: Unremarkable. No focal cystic or solid mass. SPLEEN: Unremarkable. Normal size without focal cystic or solid mass. ADRENALS: Unremarkable. No nodules. KIDNEYS AND URETERS: Unremarkable. Normal renal size and position. No hydronephrosis. STOMACH AND BOWEL: Extensive colocolic intussusception involving the distal transverse colon through to the proximal sigmoid colon. Probable mass at the lead point that is ill-defined and may measure up to 4 cm in diameter. No stomach or bowel distention. No focal inflammatory change. PELVIS: APPENDIX: Normal appendix. BLADDER: Unremarkable. REPRODUCTIVE: Unremarkable as visualized. No mass. ABDOMEN and PELVIS: INTRAPERITONEAL SPACE: Unremarkable. No ascites or other fluid collection. No free air. BONES/JOINTS: Unremarkable. No suspicious lytic or blastic abnormality. SOFT TISSUES: Unremarkable. No discrete abdominal or pelvic wall hernia. LYMPH NODES: Unremarkable. No enlarged lymph nodes. CT/CTA Abd/Pelvis W/WO Contrast IMPRESSION: 1. Extensive colocolic intussusception involving the distal transverse colon through to the proximal sigmoid colon. Prior CT demonstrates a 4.7 cm mass in the distal transverse colon. 2. Cholecystectomy. N.B. : The above Results were Read Back by Maximo Carrizales MD to Judah Phelan DO, and understanding confirmed on 02/14/2024 05:18:15 (ET). Electronically Signed: Maximo Carrizales MD at 5:23 EDT ,
[2024-02-14] MEDS: 0.9% Normal Saline (1000mL) 1,000 ML 999 ML IV (03:52)
[2024-02-14 03:54] LABS: Absolute Lymphocyte Count 0.98 X10^3/uL (0.83-4.51); Absolute Neutrophil Count 7.7 X10^3/uL (2.0-7.7); Basophil# 0.04 X10^3/uL; Basophil% 0.4 % (0-1); Eosinophil# 0.06 X10^3/uL; Eosinophils% 0.6 % (0-5); Hematocrit 39.3 % (37-47); Hemoglobin 12.8 g/dL (12.0-15.0); Lymphocyte # 0.98 X10^3/ul (0.83-4.51); Lymphocyte % 10.6 % (19-41); Mean Corp Hgb Conc 32.6 g/dL (32-36); Mean Corpuscular Hgb 28.7 pg (27.0-32.0); Mean Corpuscular Volume 88.1 fL (81-99); Mean Platelet Vol. 9.9 fl (6.2-12.0); Monocyte# 0.48 X10^3/uL; Monocyte% 5.2 % (0-10); NRBC Flagged by Analyzer 0 % (0-5); Neutrophil # 7.67 X10^3/uL (2.7-7.7); Neutrophil % 82.7 % (47-70); Platelet Count 265 K/mm3 (150-450); RBC Distribution Width CV 13.2 % (11.6-14.6); RBC Distribution Width SD 42.6 fl (35.1-43.9); Red Blood Count 4.46 M/mm3 (4.2-5.4); White Blood Count 9.3 K/mm3 (4.4-11.0)
[2024-02-14 04:03] LABS: International Normalized Ratio 0.9; Prothrombin Time (Protime)PT. 12.6 SECONDS (11.7-14.9)
[2024-02-14 04:04] LABS: Partial Thromboplast Time 31.4 Seconds (24.1-36.2)
[2024-02-14 04:11] LABS: AST(SGOT) 24 U/L (15-37); Alanine Aminotransfer ALT/SGPT 26 U/L (13-56); Albumin, Serum 1.8 g/dL (3.2-5.0); Alkaline Phosphatase 68 U/L (45-117); Anion Gap 7 (5-15); BUN 32 mg/dL (7-18); BUN/Creat Ratio 47.6 RATIO (10-20); Bilirubin, Direct 0.07 mg/dL (0.00-0.30); Calcium,Total 8.5 mg/dL (8.5-10.1); Chloride 108 mmol/L (98-107); Creatinine, Serum 0.67 mg/dL (0.55-1.02); EST Glomerular Filtration Rate 94 mL/min (>60); Est Glom Filt Rate - Afr Amer 114 mL/min (>60); Estimated Creatinine Clearance 77.24 ml/min; Globulin 3.7 g/dL (2.2-4.2); Glucose 151 mg/dL (74-106); Potassium 3.2 mmol/L (3.5-5.1); Protein, Total 5.5 g/dL (6.4-8.2); Sodium Level 140 mmol/L (136-145)
--- NOTE | 2024-02-14 04:19 | EX.ED.DYSGE1 ---
HPI History of Present Illness Chief Complaint: GI Bleed Informant: patient and spouse/S.O. Narrative Narrative: Patient is a 64-year-old female with past medical history of hyperlipidemia who was admitted to the hospital roughly 6 weeks ago secondary to constipation. Patient states that she has more diarrhea than constipation and this has been relatively persistent since her last admission. She denies any previous diagnosis or history of intestinal disorders such as IBS or ulcerative colitis or Crohn's disease. She states that this afternoon she began having bowel movements that were bright red in color. She states initially there was normal stool/diarrhea with surrounding blood. However as time progressed the bowel movements seem to be more pure blood in color and less stool. She denies any history of bleeding disorder or blood thinner use. She states that if she does not have a bowel movement there is no spontaneous rectal bleeding. She denies any lightheadedness/syncope chest pain or shortness of breath associated with this but the symptoms seem to be worsening she presents for evaluation [facility] Medical History Pleural effusion Constipation HLD (hyperlipidemia) Home Medications ?Medication ?Instructions ?Recorded ?Last Taken ?Type atorvastatin 40 mg tablet 40 mg PO QHS cholesterol 12/27/23 12/26/23 History furosemide 40 mg tablet (Lasix) 40 mg PO DAILY #30 tabs 12/28/23 Unknown Rx potassium chloride 10 mEq 20 meq (2 x 10 mEq) PO DAILY #60 12/28/23 Unknown Rx tablet,extended release tabs Allergy/AdvReac Type Severity Reaction Status Date / Time No Known Allergies Allergy Verified 12/27/23 12:15 Family History Father CAD (coronary artery disease) Heart disease Hypertension Mother Heart disease Hypertension Heart failure Surgical History No history of previous surgery Social History household members: spouse and family Smoking Status: Never smoker alcohol intake: never substance use type: does not use ROS ROS ED Constitutional Constitutional ED: Denies chills or fever(s) Eyes Eyes: Denies blurry vision or change in vision ENT ENT ED: Denies sore throat Cardiovascular Cardiovascular: Denies chest pain, palpitations or racing heartbeat Respiratory/Chest Respiratory/Chest: Denies cough or dyspnea Gastrointestinal Gastrointestinal: Reports abdominal pain, diarrhea and other Details: Positive bright red blood per rectum ; Denies nausea or vomiting Genitourinary Genitourinary ED: Denies dysuria Musculoskeletal Musculoskeletal: Denies back pain or myalgias Integumentary Denies rash Neurologic Neurologic: Denies headache(s), paresthesias or weakness Hematologic/Lymphatic Hematologic/Lymphatic: Denies easy bleeding or easy bruising EXAM Physical Exam Const Vital Signs: 02/14/24 03:19 02/14/24 05:18 Temperature 98.5 F 99.0 F Temperature Source Oral Oral Pulse Rate 78 72 Respiratory Rate 16 16 Blood Pressure 133/69 H 125/74 H Blood Pressure Mean 90 91 Pulse Ox 97 96 Oxygen Delivery Method Room Air Room Air Positive well nourished and well developed General Appearance ED: well developed; Negative for pallor HEENT Reports moist mucous membranes Eyes PERRL and EOMs intact bilaterally General Eye ED: Negative for pale conjunctiva or scleral icterus Neck supple Resp normal respiratory effort and clear to auscultation bilaterally Cardio regular rate and regular rhythm Rate: other Other Details: Heart is regular rate and rhythm without murmurs rubs or gallops Radial and carotid pulses equal and symmetric GI non-tender, non-distended and no masses GI Narrative: Abdomen is soft nontender nondistended with hyperactive bowel sounds. No voluntary guarding or rigidity or pulsatile mass. No increased tympany noted Auscultation: hyperactive bowel sounds Palpation: soft Narrative: Rectal exam shows nonbleeding nonthrombosed external hemorrhoid. No anal fissure is noted. Internal exam shows normal rectal tone. There is scant stool within the rectal vault that is mucousy brown in color but Hemoccult positive. No obvious internal masses/hemorrhoids palpated. Extremity normal to inspection Neuro oriented x3, CN's II-XII intact bilaterally and no sensory deficits noted Sensorium / Orientation: alert Motor Exam: strength 5/5 throughout Psych mental status grossly normal Skin no rashes or lesions noted and no wounds Skin Narrative: Capillary refills less than 3 seconds General Skin Exam: Negative for jaundice or pallor MDM MDM MDM Narrative Medical decision making narrative: Patient arrived to the ER with stable vitals and a soft nonsurgical abdomen. She reported persistent diarrheal symptoms since her previous admission. However today she had multiple bouts of bright red blood per rectum and she is not on a blood thinner or has a history of bleeding disorder. With the changes to her bowel movement this was concerning so she came in for evaluation. Differential diagnosis is for diverticular bleeding versus ruptured internal hemorrhoid versus colitis versus brisk upper GI bleed versus acute blood loss anemia versus acute kidney injury versus intestinal mass. Blood work revealed a normal H&H with no elevation to her bleeding times and stable platelets. BUN was elevated at 32 which is up from 21 from approximately 6 weeks ago. This raises concern for potential internal bleeding. The stool was not melanotic but it did test positive for blood and patient did have a bowel movement in the ER which was bright red in color. A CTA was obtained to check for the cause of her bleeding and was found to show an intestinal mass with intussusception. Patient does states she recently found out her brother has a history of intestinal cancer. Secondary to the intussusception and internal bleeding there is concern that patient may need surgical intervention so general surgery was contacted. Surgery evaluated the patient in the ER and feel that admission at this time is the most appropriate course of action. Therefore the patient will be admitted to their service for further evaluation of her intussusception intestinal mass and GI bleed but has remained hemodynamically stable for the entire ER stay History & Record Review Discussion w/independent historian: Patient and Significant other Lab Data Attestation: I reviewed the patient's lab results. Labs: Laboratory Results - last 24 hr 02/14/24 02/14/24 03:40 03:55 WBC 9.3 RBC 4.46 Hgb 12.8 Hct 39.3 MCV 88.1 MCH 28.7 MCHC 32.6 RDW Std Deviation 42.6 RDW Coeff of Jose 13.2 Plt Count 265 MPV 9.9 Immature Gran % (Auto) 0.500 Neut % (Auto) 82.7 H Lymph % (Auto) 10.6 L [place] % (Auto) 5.2 Eos % (Auto) 0.6 Baso % (Auto) 0.4 Absolute Neuts (auto) 7.7 Absolute Lymphs (auto) 0.98 Nucleated RBC % 0 PT 12.6 INR 0.9 APTT 31.4 Sodium 140 Potassium 3.2 L Chloride 108 H Carbon Dioxide 25.0 Anion Gap 7 BUN 32 H Creatinine 0.67 Estim Creat Clear Calc 77.24 Est GFR (MDRD) Af Amer 114 Est GFR (MDRD) Non-Af 94 BUN/Creatinine Ratio 47.6 H Glucose 151 H Lactic Acid 0.7 Calcium 8.5 Total Bilirubin 0.30 Direct Bilirubin 0.07 AST 24 ALT 26 Alkaline Phosphatase 68 Total Protein 5.5 L Albumin 1.8 L Globulin 3.7 Radiography Diagnostic Testing: Clinical Impression(s) from Imaging Studies Abdomen/Pelvis CTA 02/14/24 03:43 IMPRESSION: 1. Extensive colocolic intussusception involving the distal transverse colon through to the proximal sigmoid colon. Prior CT demonstrates a 4.7 cm mass in the distal transverse colon. 2. Cholecystectomy. N.B. : The above Results were Read Back by Maximo Carrizales MD to Judah Phelan DO, and understanding confirmed on 02/14/2024 05:18:15 (ET). Electronically Signed: Maximo Carrizales MD at 5:23 EDT , ADDENDUM: 02/14/24 0530 IMPRESSION: 1. Extensive colocolic intussusception involving the distal transverse colon through to the proximal sigmoid colon. Prior CT demonstrates a 4.7 cm mass in the distal transverse colon. 2. Cholecystectomy. N.B. : The above Results were Read Back by Maximo Carrizales MD to Judah Phelan DO, and understanding confirmed on 02/14/2024 05:18:15 (ET). Electronically Signed: Maximo Carrizales MD at 5:23 EDT , Management Discussion w/another healthcare provider: Agricultural Technical Officer and Radiologist Discharge Plan Triage Chief Complaint: GI Bleed ED Provider: Judah Phelan Dx/Rx/DC Orders Clinical Impression: Intussusception of colon, GI (gastrointestinal bleed), Hyperlipidemia, Intestinal mass Prescriptions: No Action atorvastatin 40 mg tablet 40 mg PO QHS furosemide [Lasix] 40 mg tablet 40 mg PO DAILY Qty: 30 0RF potassium chloride 10 mEq tablet extended release 20 meq PO DAILY Qty: 60 0RF Primary Care Provider: Santi Segvoia Referrals: Santi Segovia DO [Primary Care Provider] - Print Language: [place]se Disposition Disposition: Acute Care Hospital [facility]
[2024-02-14 04:27] LABS: Lactic Acid 0.7 mmol/L (0.4-1.9)
--- NOTE | 2024-02-14 07:10 | NURSING ---
MED SURG BORTZ INTUSSUUSCEPTION WITH INTESTINAL MASS
--- NOTE | 2024-02-14 07:12 | VDLE_ITS ---
Reason For Study: swelling RIGHT LEFT GSV is normal. GSV is normal. CFV is compressible, spontaneous, competent CFV is compressible, spontaneous, competent, and demonstrates pulsatile venous flow. and demonstrates pulsatile venous flow. FV is compressible, spontaneous, competent FV is compressible, spontaneous, competent and demonstrates pulsatile venous flow. and demonstrates pulsatile venous flow. POP V is compressible, spontaneous, competent POP V is compressible, spontaneous, competent and demonstrates pulsatile venous flow. and demonstrates pulsatile venous flow. T/P Trunk is compressible. T/P Trunk is compressible. PTV is compressible. PTV is compressible. RT PerV is compressible. LT PerV is compressible. Procedure This is a venous duplex using B-mode, color flow and spectral Doppler. Exam performed portable in patient room. The exam was diagnostic. A preliminary report was called and/or faxed to [facility] charge master specialist and Tali Jo PA-C. VL/Venous Duplex US - Dwain Extrem Interpretation Summary No evidence for acute deep venous thrombosis bilateral lower extremities with p atent and compressible bilateral great saphenous veins. Pulsitile venous flow is noted bi laterally suspicous for proximal venous hypertension or obstruction. Clinical correlation would be appropriate. Ordering Physician: Tali Jo Performed By: Adam Vivas RVT
--- NOTE | 2024-02-14 07:16 | HP.PCM_ITS ---
HPI - General General Chief Complaint: Abdominal pain and bright red blood per rectum HPI Narrative CHARLY SHEN, is a 64 F who presents to [facility] with complaints of severe mid to lower abdominal pain associated with bright red blood per rectum. She and her relate that they were admitted in December of this year for complaints of alternating constipation and loose stools as well as bilateral lower extremity swelling. She shares that none of these complaints improved despite the addition of a water pill (furosemide). She notes that she was due to visit with a vein specialist tomorrow. She does state that she raised the possibility of a colon issue with her PCP but this was rather promptly dismissed. Lastly she shares that her brother is presently in [place] having undergone a colon surgery on February 01 for colon cancer himself (age 58). [facility], [facility] Medical History Pleural effusion Constipation HLD (hyperlipidemia) Home Medications ?Medication ?Instructions ?Recorded ?Last Taken ?Type atorvastatin 40 mg tablet 40 mg PO QHS cholesterol 12/27/23 12/26/23 History furosemide 40 mg tablet (Lasix) 40 mg PO DAILY #30 tabs 12/28/23 Unknown Rx potassium chloride 10 mEq 20 meq (2 x 10 mEq) PO DAILY #60 12/28/23 Unknown Rx tablet,extended release tabs Allergy/AdvReac Type Severity Reaction Status Date / Time No Known Allergies Allergy Verified 12/27/23 12:15 Family History Father CAD (coronary artery disease) Heart disease Hypertension Mother Heart disease Hypertension Heart failure Surgical History No history of previous surgery Social History household members: spouse and family Smoking Status: Never smoker alcohol intake: never substance use type: does not use ROS Constitutional Constitutional: Reports change in weight and weight loss Gastrointestinal Gastrointestinal: Reports abdominal pain, constipation, diarrhea and hematochezia Vital Signs Vital Signs Vital Signs: 02/14/24 03:19 02/14/24 05:18 02/14/24 07:00 Temperature 98.5 F 99.0 F Temperature Source Oral Oral Pulse Rate 78 72 82 Respiratory Rate 16 16 17 Blood Pressure 133/69 H 125/74 H 139/69 H Blood Pressure Mean 90 91 92 Pulse Ox 97 96 98 Oxygen Delivery Method Room Air Room Air Room Air 02/14/24 07:11 Temperature 97.8 F Temperature Source Pulse Rate 81 Respiratory Rate 18 Blood Pressure 139/69 H Blood Pressure Mean 92 Pulse Ox 98 Oxygen Delivery Method Weight Weight: 144 lb 9.972 oz Body Mass Index (BMI) 25.6 Physical Exam Const alert, oriented x3 and well nourished Constitutional Narrative: Mild distress from abdominal pain General Appearance: cooperative Resp normal respiratory effort GI GI Narrative: No scars, soft, mildly distended, tender to palpation left upper and left lower quadrants Results Lab / Micro Data 02/14/24 03:40 02/14/24 03:40 Labs: Laboratory Results - last 24 hr 02/14/24 03:40: WBC 9.3, RBC 4.46, Hgb 12.8, Hct 39.3, MCV 88.1, MCH 28.7, MCHC 32.6, RDW Std Deviation 42.6, RDW Coeff of Jose 13.2, Plt Count 265, MPV 9.9, Immature Gran % (Auto) 0.500, Neut % (Auto) 82.7 H, Lymph % (Auto) 10.6 L, Sunflower % (Auto) 5.2, Eos % (Auto) 0.6, Baso % (Auto) 0.4, Absolute Neuts (auto) 7.7, Absolute Lymphs (auto) 0.98, Nucleated RBC % 0, PT 12.6, INR 0.9, APTT 31.4, Sodium 140, Potassium 3.2 L, Chloride 108 H, Carbon Dioxide 25.0, Anion Gap 7, B UN 32 H, Creatinine 0.67, Estim Creat Clear Calc 77.24, Est GFR (MDRD) Af Amer 114, Est GFR (MDRD) Non-Af 94, BUN/Creatinine Ratio 47.6 H, Glucose 151 H, Calcium 8.5, Total Bilirubin 0.30, Direct Bilirubin 0.07, AST 24, ALT 26, Alkaline Phosphatase 68, Total Protein 5.5 L, Albumin 1.8 L, Globulin 3.7 02/14/24 03:55: Lactic Acid 0.7 Micro: Microbiology 02/14/24 03:40 Stool Stool Occult Blood (ARNOLD) - Final Occult Blood Positive Imaging Radiology Impression Abdomen/Pelvis CTA 02/14/24 03:43 IMPRESSION: 1. Extensive colocolic intussusception involving the distal transverse colon through to the proximal sigmoid colon. Prior CT demonstrates a 4.7 cm mass in the distal transverse colon. 2. Cholecystectomy. N.B. : The above Results were Read Back by Maximo Carrizales MD to Judah Phelan DO, and understanding confirmed on 02/14/2024 05:18:15 (ET). Electronically Signed: Maximo Carrizales MD at 5:23 EDT , ADDENDUM: 02/14/2430 IMPRESSION: 1. Extensive colocolic intussusception involving the distal transverse colon through to the proximal sigmoid colon. Prior CT demonstrates a 4.7 cm mass in the distal transverse colon. 2. Cholecystectomy. N.B. : The above Results were Read Back by Maximo Carrizales MD to Judah Phelan DO, and understanding confirmed on 02/14/2024 05:18:15 (ET). Electronically Signed: Maximo Carrizales MD at 5:23 EDT , Assessment & Plan Assessment/Plan (1) Intussusception of colon: (2) Colonic mass: PLAN: Plan Patient is 64-year-old female who presents acutely after developing severe abdominal pain and hematochezia yesterday. However, the symptoms were preceded by at least a month and a half of irregular bowel habits, decreased appetite, and some weight loss (estimated 10 pounds). Patient's workup shows evidence of colocolonic intussusception secondary to a distal transverse colonic mass that was evidently missed with her CT imaging at her previous admission December of this year. Patient has no prior history of screening colonoscopy, but does share that her brother was recently diagnosed with colon cancer and underwent colectomy himself last month. Patient advised that we will need to proceed urgently/emergently to the operating room for laparoscopic assisted (possible open) left hemicolectomy with probable colostomy. I shared with her that given the nature of the surgery?an unprepped colon with partial obstruction and poor nutrition (albumin 1.8) this is the safest option for her. I did discuss risks of procedure?including risk to the left ureter and need to obtain a adequate lymph node harvest given a probable underlying colonic mass. Patient's appears in some consternation/mental distress and repeatedly asked whether this is necessary and I have attempted to gently reassure him that it is and any interaction could lead to rather sudden development of sepsis and a more life- threatening situation. Patient will be admitted to the floor until the operating room is available. In the interim I am looking to obtain stat venous duplex of bilateral lower extremities as patient's bilateral edema could be secondary to a thrombotic event given her probable hypercoagulable state in the setting of a newly?appreciated malignancy. To this end I have asked emergency medicine to obtain a Carcinoembryonic antigen level as well. Charges/Coding Visit Charges Inpatient E&M: 89906 Init Hosp L2
--- NOTE | 2024-02-14 08:51 | EKG12_ITS ---
Test Reason : PREOP Blood Pressure : / mmHG Vent. Rate : 065 BPM Atrial Rate : 065 BPM P-R Int : 200 ms QRS Dur : 084 ms QT Int : 396 ms P-R-T Axes : 062 016 031 degrees QTc Int : 411 ms Normal sinus rhythm Possible Left atrial enlargement Borderline ECG Confirmed by CARLOS SOLIS, MARCI ([id number]), newspaper photo editor EUGENIA SPRAGUE ([id number]) on 02/20/2024 10:32:58 AM Referred By: Confirmed By:MARCI GONZALEZ MD
[2024-02-14] MEDS: 0.9% Normal Saline (1000mL) 1,000 ML 15 ML IV (09:36)
[2024-02-14] MEDS: Piperacil/Tazobactam 3.375 GM in 0.9% Normal Saline (50mL MB+) 50 ML IV ×2 (09:47→21:51)
--- NOTE | 2024-02-14 10:01 | PCM.PRE.AN2 ---
ASA Classification* ASA Classification ASA Classification: 2 Assessment & Plan Anesthesia* Anesthesia Assessment Anesthesia Assessment: Discussed sedation and/or anesthesia options, risks, benefits, and alternatives with patient/parents/legal guardian/POA. Questions invited. The patient/parents/legal guardian/POA seems to understand and agrees to proceed with anesthesia plan. Reviewed the physical assessment, medical history, allergy history and patient home medications list prior to surgery/procedure/anesthetic and documented any changes. Performed airway and anesthesia risk assessments. Anesthesia Type Anesthesia Type: General History Source History Obtained from:: Patient and Chart Anesthesia Focused Assessment* Temperature: 97.8 F Pulse Rate: 66 Blood Pressure: 127/71 Respiratory Rate: 16 Pulse Ox: 98 Oxygen Delivery Method: Room Air Airway Assessment Mouth opens: >3 cm Mallampati Score: II Teeth Condition: Intact Neck Range of motion (ROM): Limited ROM (Slight decrease in extension) Pertinent Findings EKG Pertinent Findings:: February 14, 2024. Normal sinus rhythm. Possible left atrial enlargement Focused Labs Anesthesia Preop lab: CBC WBC 9.3 K/mm3 (4.4-11.0) 02/14/24 03:40 RBC 4.46 M/mm3 (4.2-5.4) 02/14/24 03:40 Hgb 12.8 g/dL (12.0-15.0) 02/14/24 03:40 Hct 39.3 % (37-47) 02/14/24 03:40 Plt Count 265 K/mm3 (150-450) 02/14/24 03:40 CHEMISTRY Potassium 3.2 mmol/L (3.5-5.1) L 02/14/24 03:40 Sodium 140 mmol/L (136-145) 02/14/24 03:40 Magnesium 2.1 mg/dL (1.6-2.6) 12/27/23 15:20 BUN 32 mg/dL (7-18) H 02/14/24 03:40 Creatinine 0.67 mg/dL (0.55-1.02) 02/14/24 03:40 Glucose 151 mg/dL (74-106) H 02/14/24 03:40 TSH 3.35 uIU/mL (0.358-3.74) 12/28/23 06:40 COAG PT 12.6 SECONDS (11.7-14.9) 02/14/24 03:40 Pre-Assessment Diagnosis/Proposed Procedure Planned Operative Procedure(s): Laparoscopic (possible open) left hemicolectomy with probable colostomy Anesthesia History Anesthesia History - director of product management: Versus possible anastomosis. Anesthesia History - director of product management Hx Hospitalization Any Problems With Anesthesia No 02/14/24 08:30 Cholinesterase deficiency No 02/14/24 08:30 You/Your Family Experience No 02/14/24 08:30 fever (hyperthermia) with Relationship Recent Exposure to Contagious No 02/14/24 08:30 Disease Does patient have nerve No 02/14/24 08:30 stimulator Patient instructed to have device shut off --Does patient have Pacemaker No 02/14/24 08:46 or ICD? When Was Last Pacemaker Check QUESTION #4 FULL TEXT: You/Your Family Experience fever (hyperthermia) with Anesthesia Last Oral Intake Last Oral intake: Last Oral Intake NPO since 00:00 02/14/24 08:46 Meds taken in AM with sips of No 02/14/24 08:46 water? Meds patient instructed to take am of surgery PONV PONV - director of product management: PONV - director of product management Female HX of Motion Sickness HX of N/V After Surgery Non-Smoker Duration of Surgery greater than 60 minutes Number of Risk Factors PONV Score Height & Weight Height & Weight: Anesthesia: Height & Weight Height 5 ft 3 in 02/14/24 08:46 Weight: 65.5 kg 02/14/24 08:46 Body Mass Index (BMI) 25.5 02/14/24 08:46 Respiratory Assessment Respiratory Assessment - director of product management: Respiratory Tract Infection Hx - director of product management Hx Respiratory Tract Infection No 02/14/24 08:30 STOP Sleep Apnea STOP Sleep Apnea - director of product management: STOP Sleep Apnea - director of product management Hx Hypertension No 02/14/24 08:23 Hx Sleep Apnea No 02/14/24 08:23 CPAP BIPAP Do you snore loudly (louder No 02/14/24 08:23 than talking or can be heard Do you often feel tired/ No 02/14/24 08:23 fatigued/ sleepy during daytime? Has anyone observed you stop No 02/14/24 08:23 breathing during sleep? STOP Results Negative 02/14/24 08:23 QUESTION #5 FULL TEXT : Do you snore loudly (louder than talking or can be heard through closed doors)? 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 Specify any problems Hx of Preganancy in last 3 No 02/14/24 08:23 Months Nurse Filling Out Transfusion SHESS 02/14/24 08:23 & Questions: Date: 02/14/24 02/14/24 08:23 Time: 08:28 02/14/24 08:23 Patient unable to answer at this time (ie. confused, unrespo /Reproduction History /Reproductive History - director of product management: /Reproductive Hx- director of product management Hx Now No 02/14/24 08:30 Gestational Age (in weeks): EDC: Hx Hx Para Hx Section SAB Active Medications Active Medications: Current Medications Generic Name Dose Route Start Last Admin Trade Name Freq PRN Reason Stop Dose Admin Hydromorphone HCl 0.5 mg 02/14/24 07:12 Hydromorphone 0.5 Mg/0.5 Ml Syringe IV Q4H PRN PRN Pain Score 6-10 Sodium Chloride 1,000 mls @ 125 mls/hr 02/14/24 07:15 02/14/24 09:33 IV Not Given .Q8H YUE Piperacillin Sod/Tazobactam 50 mls @ 12.5 mls/hr 02/14/24 09:00 02/14/24 09:47 Sod 3.375 gm/ Sodium Chloride IV 12.5 mls/hr Q8 YUE Administration Sodium Chloride 250 mls @ 15 mls/hr 02/14/24 08:24 IV .[id number] PRN Additional IVPB Infusion Sodium Chloride 250 mls @ 15 mls/hr 02/14/24 08:24 IV .[id number] PRN Saline Flush Sodium Chloride 1,000 mls @ 15 mls/hr 02/14/24 09:35 02/14/24 09:36 IV 15 mls/hr .Q48H YUE Administration Ondansetron HCl 4 mg 02/14/24 07:12 Ondansetron 4 Mg/2 Ml Vial IV Q6H PRN PRN NAUSEA/VOMITING Sodium Chloride 10 - 40 ml 02/14/24 08:24 0.9% Saline Lock 10 Ml Syringe IV UD PRN SALINE FLUSH PFSH Medical History (Updated 02/14/24 @ 08:33 by Agatha Goldberg) High cholesterol HLD (hyperlipidemia) Pleural effusion Constipation Home Medications ?Medication ?Instructions ?Recorded ?Last Taken ?Type atorvastatin 40 mg tablet 40 mg PO QHS cholesterol 12/27/23 12/26/23 History furosemide 40 mg tablet (Lasix) 40 mg PO DAILY #30 tabs 12/28/23 Unknown Rx potassium chloride 10 mEq 20 meq (2 x 10 mEq) PO DAILY #60 12/28/23 Unknown Rx tablet,extended release tabs Allergy/AdvReac Type Severity Reaction Status Date / Time No Known Allergies Allergy Verified 12/27/23 12:15 Family History Father CAD (coronary artery disease) Heart disease Hypertension Mother Heart disease Hypertension Heart failure Surgical History No history of previous surgery Social History household members: spouse and family Smoking Status: Never smoker alcohol intake: never substance use type: does not use Review of Systems (Anesthesia) ROS Narrative System reviewed and no additional complaints, except as documented.
--- NOTE | 2024-02-14 10:30 | COL._PTH ---
PATIENT: CHARLY SHEN LOC: MS3 U#:[id number] AGE/SX: 64/F ROOM: [facility] [place] RE02/14/[address]: Dr. Maximo Carrasco MD : 1960 BED: 1 DIS: 02/17/2024 SPEC #: [id number] RECD: 02/14/24 13:36 STATUS: OTIS COLLAZO #: [id number] XAVI: 02/14/24 10:[address]: Maximo Carrasco DEPT: SURGICAL PATHOLOGY RECD BY: Ryan Rowe ENTERED: 02/14/24 13:36 SP TYPE: COLON OTHR DR: Dr. Santi Segovia DO Tissues: A - Colon, NOS B - Colon, NOS Procedures: Surgery Specimen Level IV Surgery Specimen Level HEADER OPERATION: Laparoscopic converted to open left hemicolectomy PRE-OP DIAGNOSIS: Intussusception of colon, colonic mass TISSUE SUBMITTED: A- Distal transverse and descending colon- stitch esqueda distal margin B- Colon staple line and pericolonic fat MICROSCOPIC DIAGNOSIS A. 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 See cancer summary in the comment section. B. Colon staple line and pericolonic adipose fat: Staple line, no pathologic diagnosis. Pericolonic adipose tissue, no pathologic diagnosis. SANTIAGO/ 02/21/2024 COMMENT A. COLON CANCER SUMMARY: Procedure - Left hemicolectomy Tumor site - Transverse colon Tumor size - invasive carcinoma, 1.3 x 0.7cm, measured microscopically (rest of lesion consists of villous adenoma which measures 8 x 6 x 3.5 cm) Macroscopic tumor perforation - Not identified Histologic type - Adenocarcinoma Histologic grade - Grade 1: well differentiated Microscopic tumor extension - Tumor invades the submucosa Margins: All margins are uninvolved by invasive carcinoma, high grade dysplasia, intramucosal adenocarcinoma and adenoma. The tumor is 3.5cm away from the proximal axial resection margin Treatment effect - No known presurgical therapy Lymphvascular invasion - Not identified Perineural invasion - Not identified Tumor deposits - Not identified Type of polyp in which invasive carcinoma arose - Villous adenoma Lymph nodes: Number of lymph nodes examined - 32 Number of lymph nodes involved - 0 Additional pathologic findings - None Ancillary studies: Immunohistochemistry ([id number]) for microsatellite instability (mismatch repair of protein) will be performed and the results will be reported separately. PATHOLOGIC STAGE: pT1 pN0 pMx The above summary is in compliance with [employer] (CAP) Cancer Protocols Checklist and [place] Joint Committee on Cancer (AJCC), Staging Manual, 8th Ed. MICROSCOPIC DESCRIPTION Slides are reviewed. GROSS DESCRIPTION A. Received fresh without fixative is one container labeled with the patient's name and designated Distal transverse and descending colon. The specimen consists of a segment of colon with attached omentum and pericolonic adipose tissue measuring 38.0cm in length. Attached omentum measures 24.0 x 10.0 x 1.0cm. Both resection margins are stapled. Mucosa shows a cauliflower like polypoid lesion measuring 8.0 x 6.0 x 3.5cm. This lesion is 3.5cm away from the proximal resection margin. Serosal surface overlying the polypoid lesion is inked black. Sections with the lesion reveal it appears to be mucosal in location. Section of lesion also reveal a focal solid area. Invasion into the underlying wall is not seen. No additional mucosa lesion is identified. Focal area shows edematous mucosa. Section of the omentum do not reveal any mass lesion. Sections of pericolonic adipose tissue reveal multiple lymph nodes. Largest lymph node measures 1.0cm in greatest dimension. Paper Folding Machine Operator sections are submitted in 22 cassettes as follows: 1- proximal and distal resections (distal margin is inked black), 2-10- polypoid lesion (cassette 2 contains the lesion with solid area, bowel wall underneath the polypoid lesion is submitted in entirety). 11- shipping services sales representative section from bowel wall with edematous mucosa, 12 shipping services sales representative sections from other area of bowel wall and omentum.13-15- lymph nodes, each cassette containing multiple lymph nodes, 16-22- each cassette containing one bisected lymph node. Sections will be submitted after additional fixation. B. Received in fixative is one container labeled with the patient's name and designated Colon staple line and pericolonic fat. The specimen consists of a piece of tissue with multiple chandan measuring 6.0 x 0.5 x 0.5cm. Also present in the container is a piece of adipose tissue measuring 5.0 x 3.0 x 0.5cm. Paper Folding Machine Operator sections are submitted in two cassettes: 1- staple line, 2- adipose tissue. SANTIAGO/ 02/15/2024 TC:0 CPT:72182,75691
[2024-02-14] MEDS: Bupivacaine 0.25% 30 ML Vial ×2 (11:57)
[2024-02-14] MEDS: 0.9% Normal Saline (Pres. free 10 ML Vial ×2 (11:59→12:00)
[2024-02-14] MEDS: BUPIVACAINE LIPOSOME/PF 20 ML VIAL OPERA.SITE (12:01)
--- NOTE | 2024-02-14 14:18 | OP.PCM_ITS ---
Report of Operation Date of Procedure: 02/14/24 Pre-Operative Diagnosis: Colocolonic intussusception secondary to distal transv erse colon mass Post-Operative Diagnosis: Colocolonic intussusception secondary to distal transverse colon mass causing large bowel obstruction Surgery/Procedure Performed:: 1. Laparoscopic converted to open left hemicolectomy with creation of end colostomy 2. Transversus abdominis plane block 3. Splenic flexure mobilization Surgeon: Maximo Carrasco field operations manager: Preet Duncan field operations manager: Neville Prince Type of Anesthesia: General/Supplemental Anesthesiologist: Samy Dubon Specimen's removed: distal transverse and descending colon Estimated Blood Loss (mL): 20 Description of Procedure: Operation performed for curative intent: Yes Tumor location: Distal transverse colon Extent of colon and vascular resection: Left hemicolectomy with inclusion of the left branch of the middle colic and left colic arteries Patient arrived from the floor where written consents had been obtained. She was brought to the operating room where she was positioned supine on the operating room table. She underwent induction with general endotracheal anesthetic. She had been administered preoperative antibiotics with initiation of 3.375 g of Zosyn. A nasogastric tube was placed by anesthesia. A urinary catheter was placed by OR personnel with sterile technique. SCDs on bilateral lower extremities were connected. Patient's abdomen was prepped and draped in usual sterile fashion. A formal timeout followed to confirm patient and the procedure. The procedure was begun with supraumbilical Harrison entry. Laparoscopic visualization confirmed no inadvertent injury to the viscera below and showed the left colon to be in viable condition. I then set about performing a transversus abdominis plane block by instilling a cocktail solution of Exparel, Marcaine, and saline into the abdominal wall under laparoscopic visualization and even aliquots. After the block was instilled a second 12 mm trocar was placed into the abdomen under laparoscopic visualization and the right lower quadrant and two 5 mm trocars were placed in the right upper and left lower quadrants, respectively. With this port configuration the patient was placed in reverse Trendelenburg positioning and the splenic flexure was mobilized taking care to avoid inadvertent injury to the inferior pole of the spleen as well as the inferiorly?located greater curve of the stomach. The laparoscopic LigaSure device was used to open this plane as well as seal any short gastric vessels encountered. It was initially somewhat unclear where the true splenic flexure of the colon resided given that after division of the lateral attachments there seem to be an additional deeper segment of colon in the retroperitoneum surrounded by an edema plane. However, shortly thereafter became clear that this area represented the area of intussusception. After completing some additional lateral to medial mobilization by opening the white line of Toldt a limited laparotomy incision was created from approximately 6 cm above the umbilicus to 6 cm inferior to the umbilicus. A large wound protector was placed to assist with retraction of the abdominal wall. Then via this l aparotomy incision I was able to digitally, bluntly develop the retroperitoneal interface with the posterior aspect of the descending colon and could readily feel the intussuscepted segment as well as the mass lead point more distally. Ultimately the white line of Toldt was opened to its full extent and we were able to deliver the involved distal transverse and descending colon as well as a significant length of redundant sigmoid colon into the opening. Overall the colon appeared viable apart from a severely edematous portion just distal to the palpable colonic mass but there was some clear serosal injury as well as injury to the colonic mesentery distally and thus a distal point of transection was selected beyond this area to include all of the involved colon. This transection was made with a firing of the 75 mm IAIN stapler. Then to facilitate future identification, both one of the tinea and the staple line were marked with a 2-0 Prolene suture. Returning proximally to the transverse colon we identified a proximal transection point in the transverse colon that included the left branch of the middle colic artery. The colonic mesentery was scored and the vessel pedicle was skeletonized using LigaSure energy. The pedicle itself was taken near the mesenteric root after it was secured with application of 2 Hem-o-madelin clips and was divided with the LigaSure device. We then proceeded inferiorly and identified the left colic pedicle and once again divided the intervening mesocolon with LigaSure energy. After this pedicle was skeletonized, it too was divided after securing it with 2 Hem-o-madelin clips. Then the proximal colon was divided with a firing of the 75 millimeter IAIN stapler. The specimen was passed off the field for permanent pathology. In the meantime I examined the anterior surface of the liver with manual palpation over the dome and did not detect any irregularities in the contour. A defect was created in the left upper quadrant through the rectus muscle after considering possible stoma locations and the proximal colonic segment was delivered through this opening. There is proximal transverse colon tacked into place using interrupted 3-0 Vicryl sutures at the level of the fascia. To dilute any potential contamination we irrigated the abdomen with warm sterile saline and suctioned this effluent free of the peritoneum. All personnel changed gowns and gloves and then we set about closure of the fascia?beginning with the 12 mm port site in the right lower quadrant which was closed with a 0 Vicryl suture in a [id number] fashion. Closure of the abdominal fascia was completed using running #1 PDS suture. Lastly the skin was closed with skin chandan in loose approximation to facilitate ongoing drainage. A towel was placed over the laparotomy incision and then the left upper quadrant colostomy was matured in the usual fashion using a brooking technique with interrupted 3-0 Vicryl sutures. A colostomy appliance was fit about the stoma and all other wounds were appropriately dressed. Patient's Osullivan catheter was removed prior to emergence and then patient was awoken from anesthesia and was taken to PACU for ongoing recovery. Complications None Procedures Digestive 40xxx-49xxx: 29183 Partial Removal of Colon
[2024-02-14] MEDS: 0.9% Normal Saline (1000mL) 1,000 ML 125 ML IV ×2 (15:12→21:51)
--- NOTE | 2024-02-14 16:02 | CASEMGMT ---
RN CM Assessment At this time, the pt is still off of the floor as she had surgery today. Pt and family members are currently at bedside. Pt (Sarah) states that he is willing to help answer this RN CM questions for assessment Admitting dx: Colonic Intussusception LACE Strata: 1 PCP: Santi Segovia Specialists: Jace Dash (Derm) Preferred Pharmacy: [facility] Insurance: [employer] LNOK: Sarah Richard () Living Arrangements: Pt lives with her and 2 sons in a 2 story home with a basement and 2 steps to enter ADLs/IADLs: Ind at baseline Transportation: Hires drivers. Horse and buggy for shorter distances DME: Denies all DME uses or needs at this time HHC/SNF: Denies history or needs Plan: Pt anticipates the pt will be home no needs. CM will follow pt progression in the hospital. Prior to surgery, the pt 6-click score was 24. WCTM. Donald Morocho RN, CM
[2024-02-14] MEDS: HYDROmorphone 0.5 MG/0.5 ML SYRINGE IV (16:33)
[2024-02-14] MEDS: Ondansetron 4 MG/2 ML Vial IV (16:33)
[2024-02-14] MEDS: 0.9% Saline Lock 10 ML Syringe IV (16:33)
[2024-02-14] MEDS: Ketorolac 15 MG/ML Vial IV (18:20)
[2024-02-15] VITALS (8 sets, daily range): BP systolic 109–124; BP diastolic 59–84; PULSE 63–78; RESP 16–18; TEMP 36.7–37.3; O2SAT 95–100
[2024-02-15] MEDS: Ketorolac 15 MG/ML Vial IV ×5 (00:18→22:27)
[2024-02-15] MEDS: Piperacil/Tazobactam 3.375 GM in 0.9% Normal Saline (50mL MB+) 50 ML IV (05:27)
[2024-02-15] MEDS: 0.9% Normal Saline (1000mL) 1,000 ML 125 ML IV (05:27)
[2024-02-15 06:50] LABS: Absolute Lymphocyte Count 1.04 X10^3/uL (0.83-4.51); Absolute Neutrophil Count 6.5 X10^3/uL (2.0-7.7); Basophil# 0.01 X10^3/uL; Basophil% 0.1 % (0-1); Eosinophil# 0.01 X10^3/uL; Eosinophils% 0.1 % (0-5); Hematocrit 33.9 % (37-47); Lymphocyte # 1.04 X10^3/ul (0.83-4.51); Lymphocyte % 12.2 % (19-41); Mean Corp Hgb Conc 32.4 g/dL (32-36); Mean Corpuscular Volume 89.4 fL (81-99); Monocyte# 0.94 X10^3/uL; NRBC Flagged by Analyzer 0 % (0-5); Neutrophil # 6.51 X10^3/uL (2.7-7.7); Neutrophil % 76.2 % (47-70); Platelet Count 268 K/mm3 (150-450); RBC Distribution Width CV 13.7 % (11.6-14.6); RBC Distribution Width SD 45.2 fl (35.1-43.9); Red Blood Count 3.79 M/mm3 (4.2-5.4); White Blood Count 8.5 K/mm3 (4.4-11.0)
[2024-02-15 08:31] LABS: ALB/GLOB Ratio 0.4 RATIO (0.9-2.4); AST(SGOT) 17 U/L (15-37); Alanine Aminotransfer ALT/SGPT 23 U/L (13-56); Albumin, Serum 1.4 g/dL (3.2-5.0); Alkaline Phosphatase 54 U/L (45-117); Anion Gap 6 (5-15); BUN 38 mg/dL (7-18); BUN/Creat Ratio 36.9 RATIO (10-20); Calcium,Total 7.4 mg/dL (8.5-10.1); Chloride 115 mmol/L (98-107); Creatinine, Serum 1.03 mg/dL (0.55-1.02); EST Glomerular Filtration Rate 57 mL/min (>60); Est Glom Filt Rate - Afr Amer 69 mL/min (>60); Estimated Creatinine Clearance 50.21 ml/min; Globulin 3.3 g/dL (2.2-4.2); Glucose 120 mg/dL (74-106); Potassium 3.9 mmol/L (3.5-5.1); Protein, Total 4.7 g/dL (6.4-8.2); Sodium Level 144 mmol/L (136-145)
--- NOTE | 2024-02-15 08:43 | PN.SURG_ITS ---
Subjective Subjective Patient seen and examined during AM rounds. She is found resting in bed. She states that she has already taken a lap in the hallways and is feeling better. She also shares that she was alarmed when she first experienced some gas passing into her bag. She reports that her pain control is overall adequate. Lastly she confirms that she was able to urinate spontaneously last evening and this has provided her additional relief. Objective Data Objective Data Vital Signs: Vital Signs Temp Pulse Resp BP Pulse Ox O2 Del Method O2 Flow Rate 98.8 F 78 18 109/84 H 98 Room Air 2 02/15/24 08:25 02/15/24 08:25 02/15/24 08:25 02/15/24 08:25 02/15/24 08:25 02/15/24 08:25 02/14/24 18:18 Oxygen Flow Rate (L/min) 2 Oxygen Delivery Method Room Air Weight: 144 lb 6.444 oz Body Mass Index (BMI) 25.5 Intake & Output: Intake and Output for Last 24 Hours 02/13/24 02/14/24 02/15/24 23:59 23:59 23:59 Intake Total 3581.25 / 3581.25 1000 / 1000 Output Total 200 / 200 100 / 100 Balance 3381.25 / 3381.25 900 / 900 Lab / Micro Data 02/15/24 06:03 02/15/24 06:03 Labs: Laboratory Results - last 24 hr 02/15/24 06:03: WBC 8.5, RBC 3.79 L, Hgb 11.0 L, Hct 33.9 L, MCV 89.4, MCH 29.0, MCHC 32.4, RDW Std Deviation 45.2 H, RDW Coeff of Jose 13.7, Plt Count 268, MPV 10.0, Immature Gran % (Auto) 0.400, Neut % (Auto) 76.2 H, Lymph % (Auto) 12.2 L, Barton % (Auto) 11.0 H, Eos % (Auto) 0.1, Baso % (Auto) 0.1, Absolute Neuts (auto) 6.5, Absolute Lymphs (auto) 1.04, Nucleated RBC % 0, Sodium 144, Potassium 3.9, Chloride 115 H, Carbon Dioxide 23.0, Anion Gap 6, BUN 38 H, Creatinine 1.03 H, Estim Creat Clear Calc 50.21, Est GFR (MDRD) Af Amer 69, Est GFR (MDRD) Non-Af 57 L, BUN/Creatinine Ratio 36.9 H, Glucose 120 H, Calcium 7.4 L, Total Bilirubin 0.40, AST 17, ALT 23, Alkaline Phosphatase 54, Total Protein 4.7 L, Albumin 1.4 L, Globulin 3.3, Albumin/Globulin Ratio 0.4 L Micro: Microbiology 02/14/24 03:40 Stool Stool Occult Blood (ARNOLD) - Final Occult Blood Positive Radiography Diagnostic Testing: Radiology Impression Venous Doppler Study 02/14/24 07:12 Interpretation Summary No evidence for acute deep venous thrombosis bilateral lower extremities with patent and compressible bilateral great saphenous veins. Pulsitile venous flow is noted bilaterally suspicous for proximal venous hypertension or obstruction. Clinical correlation would be appropriate. Ordering Physician: Tali Jo Performed By: Adam Vivas RVT Physical Exam Const oriented x3 and no apparent distress Resp normal respiratory effort GI GI Narrative: Minimally distended, soft, operative dressings intact without strikethrough, left upper quadrant ostomy is well-perfused and the appliance bag is empty Assessment & Plan Assessment/Plan (1) Intussusception of colon: PLAN: Patient is postoperative day 1 from laparoscopic converted to open left hemicolectomy with creation of end colostomy. She is doing well this morning with adequate pain control and is already begun mobilization. Further, she shares that she has had passage of flatus into her colostomy appliance and claims an appetite. With these clinical improvements we will advance her to clear liquid diet without carbonation. Additionally, given the absence of contamination during her procedure yesterday we will plan to stop her antibiotics. She is encouraged to continue further ambulation and we will follow for her tolerance of a diet. Wound and ostomy nursing has been consulted to begin education with patient and her family. Maximo Carrasco MD General Surgery Endocrine Surgery Pager: [facility] [address] [place] [address], [facility], [address] [place] [address] Office: [phone] (2) Colonic mass: PLAN: ? CEA pending ? Surgical pathology pending; no growth intraoperative evidence of metastasis ? Patient requires CT of chest to complete evaluation for metastasis Charges/Coding Visit Charges Inpatient E&M: 23828 Subs Hosp L2
[2024-02-15] MEDS: Pantoprazole Sodium 40 MG in 0.9% Normal Saline (100mL MB+) 100 ML 330 MG IV (09:39)
--- NOTE | 2024-02-15 10:04 | CASEMGMT ---
Addendum entered by Doc Morocho 02/15/24 14:33: Dr. Carrasco states that the pt will tentatively be discharging on Tuesday (02/16). [facility] updated and [facility] states that they will put the pt down for SOC Saturday 02/17. CM to follow. Addendum entered by Doc Morocho 02/15/24 11:11: [facility] calls this RN CM and states that they can accept the pt for SN and SOC on Tuesday (02/16). Dr. Carrasco states that he will follow the orders. Sheryl Wound RN states that she plans to f/u with the pt this afternoon regarding wound supply options. AIDAN JOHNSTON to pt room at this time and updated with POC. Pt is agreeable to this plan and denies further questions or concerns at this time. Original Note: [facility] Wound RN states to this RN CM that she is going to try to get the pt set up with some wound supplies regarding the pt colostomy. Wound RN states that the pt is interested in HHC (SN) in regard to caring for the new ostomy. RN CM to pt room at this time. Pt denies wanting to see a list of local in-network HHC agencies and states that she would like to go through [facility]. Pt lives at home with her family ( and 2 sons) that would be able to assist the pt at home as well. TC to [facility] and referral made to [facility] for SN. Will follow.
[2024-02-15] MEDS: 0.9% Saline Lock 10 ML Syringe IV (11:36)
--- NOTE | 2024-02-15 11:50 | CM.UR ---
Social Work SW met with pt to discuss advance directives.? Pt and spouse state pt has not completed a living will and health care POA and are not interested in completing at this time.? MARLI Tena
--- NOTE | 2024-02-15 14:55 | PCM.POSTANE2 ---
Anesthesia Postop Eval I Sum Postop Eval Completion status Anesthesia document: Postop Eval 1 completed: Yes Anesthesia Postop Eval I Summary Anesthesia Postop Eval I Summary: Anesthesia Postop Eval I: Assessment Summary Airway patent Spontaneous unlabored respirations Mental status Awake 02/14/24 17:13 nausea No 02/14/24 17:13 Vomiting No 02/14/24 17:13 Anesthesia Postop Eval I: Fluid Summary Crystalloid volume administer (ml) Colloids volume administered ( ml) Blood Product volume administered (ml) Total IV fluid infused Anesthesia Postop Eval I: Summary Notes Anesthesia Complication Anesthesia Complication Comment: Post-operative progress note
--- NOTE | 2024-02-15 14:59 | PCM.POST.ANE ---
Anesthesia: Postop Eval I Current Vital Signs Temperature: 99.2 F Pulse Rate: 74 Blood Pressure: 122/65 Respiratory Rate: 16 Pulse Ox: 98 Oxygen Delivery Method: Room Air Assessment Airway patent: Yes Spontaneous unlabored respirations: Yes Mental status: Awake and Calm nausea: No Vomiting: No Anesthesia Complication: No Fluid Hydration Crystalloid volume administer (ml): 1,400 Total IV fluid infused: 1,400 Progress Note Anesthesia document: Postop Eval 1 completed: Yes
[2024-02-15 15:09] LABS: Carcinoembryonic Antigen 2.4 ng/mL (0.0-4.7)
[2024-02-15] MEDS: 0.9% Normal Saline (1000mL) 1,000 ML 75 ML IV (15:15)
--- NOTE | 2024-02-15 15:28 | WOUNDNOTE ---
Changed colostomy appliance with patient and . removed appliance. small smear of stool noted with some flatus in the pouch. stoma is pink and edematous. peristomal skin is intact. cleansed skin with warm water. pat dry. stoma measures approx 2. cut flange opening to size. applied small ring of stoma paste and placed the flange around the stoma. snapped the pouch in place. educated both on burping and emptying the appliance as well. both very attentive. pt to have home nurse for a couple of visits until they feel comfortable with care. since patient has [employer] aid. they will most likely need to get supplies. gave cost estimates of needed supplies from [employer], and [employer]. both very appreciative of education.
--- NOTE | 2024-02-15 15:59 | DCINST_ITS ---
Discharge Instructions Diet Discharge Diet: Soft diet (for 2 weeks postop) Activity Discharge Activity: May Not Drive (May not drive while taking narcotic pain medications) and May Shower (May begin showering 48hours postop. Please avoid baths or submerging surgical incisions before skin is completely healed.) May shower in (days): 2 May resume sexual activity in: 2 weeks Ice area for (Minutes): 20 Lifting Restrictions: Limit lifting to <15lbs for 4 weeks following surgery Dressing / Incision Call your doctor if your incision/area has: Sudden Increased Bleeding, Increased Pain/ Swelling, Increased Redness, Foul Smelling Discharge and Swelling at the incision site Call your doctor if you observe: Fever of 101 or Higher, Inability to urinate, Inability to have a bowel movement and Uncontrolled pain Suture Line Care: Avoid Pulling/Pushing Cleanse incision/area with: Keep Dressing Clean & Dry Follow Up Care Please Follow Up With: Maximo Carrasco MD When: 2 weeks postop Test Results: Test results from this visit will be discussed in further detail at your follow- up appointment, if applicable. Discharge Plan Admission Admit Date/Time: 02/14/24 07:12 Primary Reason for Your Visit: Colon obstruction Attending Provider: Maximo Carrasco Primary Care Provider: Santi Segovia Instructions Additional Instructions / Restrictions: ok to take ibuprofen and or tylenol with the oxycodone Discharge Orders/Prescriptions Prescriptions: New enoxaparin [Lovenox] 40 mg/0.4 mL syringe 40 mg subcut DAILY 9 Days Qty: 3.6 0RF oxycodone 5 mg tablet 5 mg PO Q6H PRN (Reason: pain) 3 Days Qty: 14 0RF Continued atorvastatin 40 mg tablet 40 mg PO QHS furosemide [Lasix] 40 mg tablet 40 mg PO DAILY Qty: 30 0RF potassium chloride 10 mEq tablet extended release 20 meq PO DAILY Qty: 60 0RF Referrals / Follow Up: Santi Segovia DO [Primary Care Provider] - Disposition Disposition (needs filled in before D/C Order can be placed): Home Health Service
[2024-02-15] MEDS: Ensure Plus High Protein 120 ML LIQUID PO (17:28)
[2024-02-15] MEDS: Atorvastatin Calcium 40 MG Tablet PO (22:27)
[2024-02-16] MEDS: 0.9% Normal Saline (1000mL) 1,000 ML 75 ML IV ×2 (04:03→16:46)
[2024-02-16 04:30] VITALS: BP 128/71; PULSE 62; RESP 18; TEMP 36.9; O2SAT 96
[2024-02-16] MEDS: Ketorolac 15 MG/ML Vial IV ×4 (05:34→23:02)
--- NOTE | 2024-02-16 07:37 | PCM.PN.SRG ---
Subjective Subjective Patient is tolerating full's and having stool from her colostomy. Objective Data Objective Data Vital Signs: Vital Signs Temp Pulse Resp BP Pulse Ox O2 Del Method O2 Flow Rate 98.4 F 62 18 128/71 H 96 Room Air 2 02/16/24 04:30 02/16/24 04:30 02/16/24 04:30 02/16/24 04:30 02/16/24 04:30 02/16/24 04:30 02/14/24 18:18 Oxygen Flow Rate (L/min) 2 Oxygen Delivery Method Room Air Weight: 143 lb 4.807 oz Body Mass Index (BMI) 25.5 Intake & Output: Intake and Output for Last 24 Hours 02/14/24 02/15/24 02/16/24 23:59 23:59 23:59 Intake Total 3581.25 / 3581.25 2422.50 / 2422.50 960 / 960 Output Total 200 / 200 325 / 325 425 / 425 Balance 3381.25 / 3381.25 2097.50 / 2097.50 535 / 535 Lab / Micro Data 02/16/24 07:29 02/15/24 06:03 Labs: Laboratory Results - last 24 hr 02/14/24 07:10: Carcinoembryonic Ag 2.4 02/15/24 06:03: Sodium 144, Potassium 3.9, Chloride 115 H, Carbon Dioxide 23.0, Anion Gap 6, BUN 38 H, Creatinine 1.03 H, Estim Creat Clear Calc 50.21, Est GFR (MDRD) Af Amer 69, Est GFR (MDRD) Non-Af 57 L, BUN/Creatinine Ratio 36.9 H, Glucose 120 H, Calcium 7.4 L, Total Bilirubin 0.40, AST 17, ALT 23, Alkaline Phosphatase 54, Total Protein 4.7 L, Albumin 1.4 L, Globulin 3.3, Albumin/Globulin Ratio 0.4 L Micro: Microbiology 02/14/24 03:40 Stool Stool Occult Blood (ARNOLD) - Final Occult Blood Positive Radiography Diagnostic Testing: Radiology Impression Venous Doppler Study 02/14/24 07:12 Interpretation Summary No evidence for acute deep venous thrombosis bilateral lower extremities with patent and compressible bilateral great saphenous veins. Pulsitile venous flow is noted bilaterally suspicous for proximal venous hypertension or obstruction. Clinical correlation would be appropriate. Ordering Physician: Tali Jo Performed By: Adam Vivas RVT Physical Exam Const oriented x3 and no apparent distress Resp normal respiratory effort Cardio regular rate GI soft to palpation GI Narrative: Midline incision with chandan, colostomy pink with stool Assessment & Plan Assessment/Plan (1) Intussusception of colon: PLAN: Patient is postoperative day 2 from laparoscopic converted to open left hemicolectomy with creation of end colostomy. Will plan to transition patient to a transitional diet. Will also check her hemoglobin if stable will start Lovenox. Per Dr. Carrasco plan is to have patient get a total of 10 days of Lovenox. If patient is able to do the injections and hemoglobin stable tomorrow likely DC home. Jana Scott M.D. Pager: [phone] [facility] [address] [place] [address], [facility], [address] [place] [address] Office: [phone] (2) Colonic mass: PLAN: ? CEA 2.4 ? Surgical pathology pending; no gross intraoperative evidence of metastasis ? Patient will requires CT of chest to complete evaluation for metastasis (3) Severe malnutrition: PLAN: Patient's albumin is 1.4 on admit and was also in the mid ones back in December.
[2024-02-16 08:33] LABS: Absolute Lymphocyte Count 1.71 X10^3/uL (0.83-4.51); Absolute Neutrophil Count 4.7 X10^3/uL (2.0-7.7); Basophil# 0.03 X10^3/uL; Basophil% 0.4 % (0-1); Eosinophil# 0.13 X10^3/uL; Eosinophils% 1.8 % (0-5); Hemoglobin 10.2 g/dL (12.0-15.0); Lymphocyte # 1.71 X10^3/ul (0.83-4.51); Lymphocyte % 23.8 % (19-41); Mean Corp Hgb Conc 31.9 g/dL (32-36); Mean Corpuscular Hgb 28.7 pg (27.0-32.0); Mean Corpuscular Volume 90.1 fL (81-99); Mean Platelet Vol. 10.6 fl (6.2-12.0); Monocyte# 0.59 X10^3/uL; Monocyte% 8.2 % (0-10); NRBC Flagged by Analyzer 0 % (0-5); Neutrophil # 4.69 X10^3/uL (2.7-7.7); Neutrophil % 65.5 % (47-70); Platelet Count 263 K/mm3 (150-450); RBC Distribution Width CV 14.1 % (11.6-14.6); RBC Distribution Width SD 46.2 fl (35.1-43.9); Red Blood Count 3.55 M/mm3 (4.2-5.4); White Blood Count 7.2 K/mm3 (4.4-11.0)
[2024-02-16 08:50] LABS: Anion Gap 5 (5-15); BUN 33 mg/dL (7-18); BUN/Creat Ratio 44.1 RATIO (10-20); Calcium,Total 8.1 mg/dL (8.5-10.1); Chloride 113 mmol/L (98-107); Creatinine, Serum 0.75 mg/dL (0.55-1.02); EST Glomerular Filtration Rate 83 mL/min (>60); Est Glom Filt Rate - Afr Amer 100 mL/min (>60); Estimated Creatinine Clearance 68.72 ml/min; Glucose 107 mg/dL (74-106); Sodium Level 141 mmol/L (136-145)
--- NOTE | 2024-02-16 08:56 | NURSING ---
Dr. Scott called and said he was going to start pt on lovenox today but just saw her HGB is 10.2 and wont start today but probably tomorrow and to inform the family/pt of the change.
[2024-02-16] MEDS: Ensure Plus High Protein 120 ML LIQUID PO ×3 (09:14→16:46)
[2024-02-16] MEDS: Pantoprazole Sodium 40 MG in 0.9% Normal Saline (100mL MB+) 100 ML 330 MG IV (09:14)
[2024-02-16 10:24] VITALS: BP 141/79; PULSE 67; RESP 18; TEMP 36.7; O2SAT 95
[2024-02-16] MEDS: 0.9% Saline Lock 10 ML Syringe IV ×2 (12:09→17:45)
[2024-02-16 14:55] VITALS: BP 123/73; PULSE 68; RESP 18; TEMP 36.9; O2SAT 97
[2024-02-16 14:57] VITALS: PULSE 80
[2024-02-16 21:00] VITALS: BP 126/77; PULSE 66; RESP 16; TEMP 36.8; O2SAT 95
[2024-02-16] MEDS: Atorvastatin Calcium 40 MG Tablet PO (21:09)
[2024-02-16] MEDS: Acetaminophen 325 MG Tablet 650 MG PO (21:09)
[2024-02-17 03:00] VITALS: BP 155/80; PULSE 62; RESP 16; TEMP 37.1; O2SAT 96
[2024-02-17] MEDS: 0.9% Normal Saline (1000mL) 1,000 ML 75 ML IV (05:15)
[2024-02-17] MEDS: Ketorolac 15 MG/ML Vial IV (05:16)
[2024-02-17 06:20] LABS: Absolute Lymphocyte Count 1.57 X10^3/uL (0.83-4.51); Absolute Neutrophil Count 3.5 X10^3/uL (2.0-7.7); Basophil# 0.02 X10^3/uL; Basophil% 0.3 % (0-1); Eosinophil# 0.23 X10^3/uL; Eosinophils% 3.9 % (0-5); Hemoglobin 10.3 g/dL (12.0-15.0); Lymphocyte # 1.57 X10^3/ul (0.83-4.51); Lymphocyte % 26.9 % (19-41); Mean Corp Hgb Conc 32.2 g/dL (32-36); Mean Corpuscular Hgb 28.9 pg (27.0-32.0); Mean Corpuscular Volume 89.6 fL (81-99); Mean Platelet Vol. 11.4 fl (6.2-12.0); Monocyte# 0.48 X10^3/uL; Monocyte% 8.2 % (0-10); NRBC Flagged by Analyzer 0 % (0-5); Neutrophil # 3.52 X10^3/uL (2.7-7.7); Neutrophil % 60.4 % (47-70); Platelet Count 229 K/mm3 (150-450); RBC Distribution Width CV 13.6 % (11.6-14.6); RBC Distribution Width SD 44.7 fl (35.1-43.9); Red Blood Count 3.57 M/mm3 (4.2-5.4); White Blood Count 5.8 K/mm3 (4.4-11.0)
--- NOTE | 2024-02-17 07:59 | PCM.PN.SRG ---
Subjective Subjective Patient tolerating soft/transitional diet. Still having bowel function from her stoma. Pain is controlled. Objective Data Objective Data Vital Signs: Vital Signs Temp Pulse Resp BP Pulse Ox O2 Del Method O2 Flow Rate 98.7 F 62 16 155/80 H 96 Room Air 2 02/17/24 03:00 02/17/24 03:00 02/17/24 03:00 02/17/24 03:00 02/17/24 03:00 02/17/24 03:00 02/14/24 18:18 Oxygen Flow Rate (L/min) 2 Oxygen Delivery Method Room Air Weight: 143 lb 4.807 oz Body Mass Index (BMI) 25.5 Intake & Output: Intake and Output for Last 24 Hours 02/15/24 02/16/24 02/17/24 23:59 23:59 23:59 Intake Total 2422.50 / 2422.50 2023.75 / 2023.75 936.25 / 936.25 Output Total 325 / 325 1725 / 1725 Balance 2097.50 / 2097.50 298.75 / 298.75 936.25 / 936.25 Lab / Micro Data 02/17/24 04:30 02/16/24 07:29 Labs: Laboratory Results - last 24 hr 02/16/24 07:29: WBC 7.2, RBC 3.55 L, Hgb 10.2 L, Hct 32.0 L, MCV 90.1, MCH 28.7, MCHC 31.9 L, RDW Std Deviation 46.2 H, RDW Coeff of Jose 14.1, Plt Count 263, MPV 10.6, Immature Gran % (Auto) 0.300, Neut % (Auto) 65.5, Lymph % (Auto) 23.8, Whitfield % (Auto) 8.2, Eos % (Auto) 1.8, Baso % (Auto) 0.4, Absolute Neuts (auto) 4.7, Absolute Lymphs (auto) 1.71, Nucleated RBC % 0, Sodium 141, Potassium 4.0, Chloride 113 H, Carbon Dioxide 23.0, Anion Gap 5, BUN 33 H, Creatinine 0.75, Estim Creat Clear Calc 68.72, Est GFR (MDRD) Af Amer 100, Est GFR (MDRD) Non-Af 83, BUN/Creatinine Ratio 44.1 H, Glucose 107 H, Calcium 8.1 L 02/17/24 04:30: WBC 5.8, RBC 3.57 L, Hgb 10.3 L, Hct 32.0 L, MCV 89.6, MCH 28.9, MCHC 32.2, RDW Std Deviation 44.7 H, RDW Coeff of Jose 13.6, Plt Count 229, MPV 11.4, Immature Gran % (Auto) 0.300, Neut % (Auto) 60.4, Lymph % (Auto) 26.9, Whitfield % (Auto) 8.2, Eos % (Auto) 3.9, Baso % (Auto) 0.3, Absolute Neuts (auto) 3.5, Absolute Lymphs (auto) 1.57, Nucleated RBC % 0 Micro: Microbiology 02/14/24 03:40 Stool Stool Occult Blood (ARNOLD) - Final Occult Blood Positive Physical Exam Const oriented x3 and no apparent distress Resp normal respiratory effort Cardio regular rate GI soft to palpation GI Narrative: Midline incision with chandan, colostomy pink with stool Assessment & Plan Assessment/Plan (1) Intussusception of colon: PLAN: Patient is postoperative day 3 from laparoscopic converted to open left hemicolectomy with creation of end colostomy. Patient tolerated transitional diet. Patient's hemoglobin is stable at 10.3 from 10.2. Will be given Lovenox 40 mg SQ daily and additional 9 days on DC Jana Scott M.D. Pager: [phone] [facility] [address] [place] [address], [facility], [address] [place] [id number] Office: [phone] (2) Colonic mass: PLAN: ? CEA 2.4 ? Surgical pathology pending; no gross intraoperative evidence of metastasis ? Patient will requires CT of chest to complete evaluation for metastasis (3) Severe malnutrition: PLAN: Patient's albumin is 1.4 on admit and was also in the mid ones back in December.
--- NOTE | 2024-02-17 08:00 | DCINST_ITS ---
Discharge Instructions Diet Discharge Diet: Soft diet and - (soft/transitional-low fiber) Activity Discharge Activity: May Not Drive (while taking narcotic pain medications.) May shower in (days): 2 Ice area for (Minutes): 20 Lifting Restrictions: no lifting >20 lbs x 2 wks, no strenuous exercise for 4 wks Dressing / Incision Call your doctor if your incision/area has: Sudden Increased Bleeding, Increased Pain/ Swelling, Increased Redness, Foul Smelling Discharge and Swelling at the incision site Call your doctor if you observe: Fever of 101 or Higher Cleanse incision/area with: Soap & Water and Keep Dressing Clean & Dry Follow Up Care Please Follow Up With: Maximo Carrasco MD When: Call the office for a follow-up appointment 12 days from surgery for staple removal- [phone]; after 5 PM and on the weekends call [phone] with any concerns. Test Results: Test results from this visit will be discussed in further detail at your follow- up appointment, if applicable. Discharge Plan Admission Admit Date/Time: 02/14/24 07:12 Primary Reason for Your Visit: Colon obstruction Attending Provider: Maximo Carrasco Primary Care Provider: Santi Segovia Instructions Additional Instructions / Restrictions: ok to take ibuprofen and or tylenol with the oxycodone Discharge Orders/Prescriptions Prescriptions: New enoxaparin [Lovenox] 40 mg/0.4 mL syringe 40 mg subcut DAILY 9 Days Qty: 3.6 0RF oxycodone 5 mg tablet 5 mg PO Q6H PRN (Reason: pain) 3 Days Qty: 14 0RF Continued atorvastatin 40 mg tablet 40 mg PO QHS furosemide [Lasix] 40 mg tablet 40 mg PO DAILY Qty: 30 0RF potassium chloride 10 mEq tablet extended release 20 meq PO DAILY Qty: 60 0RF Referrals / Follow Up: Santi Segovia DO [Primary Care Provider] - Disposition Disposition (needs filled in before D/C Order can be placed): Home Health Service
--- NOTE | 2024-02-17 08:15 | DS.PCM_ITS ---
Providers Date of Admission: 02/14/24 Date of Discharge: 02/17/24 Primary Care Physician: Dr. Santi Segovia, Consultations 02/14/24 14:19 Consult: Onc/Wound/energy consultant Routine Comment: Reason for Consult:: new colostomy Reason For Visit: COLONIC INTUSSUSCEPTION Diagnosis Discharge Diagnosis (1) Intussusception of colon: Status: Acute Code(s): K56.1 - Intussusception Plan: Patient is postoperative day 2 from laparoscopic converted to open left hemicolectomy with creation of end colostomy. Will plan to transition patient to a transitional diet. Will also check her hemoglobin if stable will start Lovenox. Per Dr. Carrasco plan is to have patient get a total of 10 days of Lovenox. If patient is able to do the injections and hemoglobin stable tomorrow likely DC home. Jana Scott M.D. Pager: [phone] [facility] [address] [place] [address], [facility], [address] [place] [address] Office: [phone] (2) Colonic mass: Status: Acute Code(s): K63.89 - Other specified diseases of intestine Plan: ? CEA 2.4 ? Surgical pathology pending; no gross intraoperative evidence of metastasis ? Patient will requires CT of chest to complete evaluation for metastasis (3) Severe malnutrition: Status: Acute Code(s): E43 - Unspecified severe protein-calorie malnutrition Plan: Patient's albumin is 1.4 on admit and was also in the mid ones back in December. Medications at Discharge Home Medications atorvastatin 40 mg tablet 40 mg PO QHS cholesterol 12/27/23 furosemide 40 mg tablet (Lasix) 40 mg PO DAILY #30 tabs 12/28/23 potassium chloride 10 mEq tablet,extended release 20 meq (2 x 10 mEq) PO DAILY #60 tabs 12/28/23 enoxaparin 40 mg/0.4 mL subcutaneous syringe (Lovenox) 40 mg (0.4 mL) subcut DAILY 9 days #3.6 mL 02/17/24 oxycodone 5 mg tablet 5 mg PO Q6H PRN pain 3 days #14 tabs 02/17/24 Hospital Course Operations colectomy (Lap converted to open left hemicolectomy with end colostomy) Procedures None Summary of Care Provided Minutes Spent on Discharge: 15 Hospital Course: Patient was admitted due to abdominal pain and CT abdomen pelvis showed colonic intussusception involving transverse colon mass and GI bleed from this mass. Patient underwent laparoscopic converted to open left hemicolectomy with creation of end colostomy due to patient's chronic malnutrition-albumin 1.4. Postoperatively patient did well was able to tolerate diet be advanced to soft/transitional and was taught how to change her ostomy/ostomy care. Patient's hemoglobin did stabilize at 10.3 patient did begin Lovenox on day of discharge and plan for additional 9 days. Physical Exam Const oriented x3 and no apparent distress Resp normal respiratory effort Cardio regular rate GI soft to palpation GI Narrative: Midline incision with chandan, colostomy pink with stool Weight / BMI Weight Weight: 143 lb 4.807 oz Body Mass Index (BMI) 25.5 ABG / Lab / Microbiology Data 02/17/24 04:30 02/16/24 07:29 Laboratory: Laboratory Results - last 24 hr 02/16/24 07:29: WBC 7.2, RBC 3.55 L, Hgb 10.2 L, Hct 32.0 L, MCV 90.1, MCH 28.7, MCHC 31.9 L, RDW Std Deviation 46.2 H, RDW Coeff of Jose 14.1, Plt Count 263, MPV 10.6, Immature Gran % (Auto) 0.300, Neut % (Auto) 65.5, Lymph % (Auto) 23.8, Ward % (Auto) 8.2, Eos % (Auto) 1.8, Baso % (Auto) 0.4, Absolute Neuts (auto) 4.7, Absolute Lymphs (auto) 1.71, Nucleated RBC % 0, Sodium 141, Potassium 4.0, Chloride 113 H, Carbon Dioxide 23.0, Anion Gap 5, BUN 33 H, Creatinine 0.75, Estim Creat Clear Calc 68.72, Est GFR (MDRD) Af Amer 100, Est GFR (MDRD) Non-Af 83, BUN/Creatinine Ratio 44.1 H, Glucose 107 H, Calcium 8.1 L 02/17/24 04:30: WBC 5.8, RBC 3.57 L, Hgb 10.3 L, Hct 32.0 L, MCV 89.6, MCH 28.9, MCHC 32.2, RDW Std Deviation 44.7 H, RDW Coeff of Jose 13.6, Plt Count 229, MPV 11.4, Immature Gran % (Auto) 0.300, Neut % (Auto) 60.4, Lymph % (Auto) 26.9, Ward % (Auto) 8.2, Eos % (Auto) 3.9, Baso % (Auto) 0.3, Absolute Neuts (auto) 3.5, Absolute Lymphs (auto) 1.57, Nucleated RBC % 0 Microbiology: Microbiology 02/14/24 03:40 Stool Stool Occult Blood (ARNOLD) - Final Occult Blood Positive D/C Instructions Discharge Diet: Soft diet and - (soft/transitional-low fiber) May shower in (days): 2 May resume sexual activity in: 2 weeks Ice area for (Minutes): 20 Call your doctor if your incision/area has: Sudden Increased Bleeding, Increased Pain/ Swelling, Increased Redness, Foul Smelling Discharge and Swelling at the incision site Call your doctor if you observe: Fever of 101 or Higher Suture Line Care: Avoid Pulling/Pushing Cleanse incision/area with: Soap & Water and Keep Dressing Clean & Dry Please Follow Up With: Maximo Carrasco MD When: Call the office for a follow-up appointment 14 days from surgery date for staple removal- [phone]; after 5 PM and on the weekends call [phone] with any concerns. Meaningful Use Info Meaningful Use Meaningful Use Diagnoses (Choose all that apply): None applicable Ischemic Stroke Statin Dosing Therapy Reference: STATIN DOSE THERAPY REFERENCE: * Patients > 75 years receive moderate or high dose statin therapy. * Patients 75 years or YOUNGER should receive HIGH intensity statin dose unless contraindicated. You will be required to document reason for non-treatment if statin daily dose does not meet guidelines. HIGH DOSE STATIN THERAPY DAILY Atorvastatin > than or = to 40 mg Rosuvastatin > than or = to 20 mg Amlodipine + Atorvastatin > than or = to 2.5/40 mg Ezetimibe + Simvastatin 10/80 mg Simvastatin 80mg Discharge Plan Admission Admit Date/Time: 02/14/24 07:12 Primary Reason for Your Visit: Colon obstruction Attending Provider: Maximo Carrasco Primary Care Provider: Santi Segovia Instructions Additional Instructions / Restrictions: ok to take ibuprofen and or tylenol with the oxycodone Discharge Orders/Prescriptions Prescriptions: New enoxaparin [Lovenox] 40 mg/0.4 mL syringe 40 mg subcut DAILY 9 Days Qty: 3.6 0RF oxycodone 5 mg tablet 5 mg PO Q6H PRN (Reason: pain) 3 Days Qty: 14 0RF Continued atorvastatin 40 mg tablet 40 mg PO QHS furosemide [Lasix] 40 mg tablet 40 mg PO DAILY Qty: 30 0RF potassium chloride 10 mEq tablet extended release 20 meq PO DAILY Qty: 60 0RF Referrals / Follow Up: Santi Segovia DO [Primary Care Provider] - Disposition Disposition (needs filled in before D/C Order can be placed): Home Health Service
[2024-02-17 08:33] VITALS: BP 135/81; PULSE 60; RESP 16; TEMP 36.6; O2SAT 97
--- NOTE | 2024-02-17 09:07 | CASEMGMT ---
Order for DC placed. TC to [facility] and [facility] updated that the pt will be dischaerging today. [facility] confirms SOC for Saturday 02/17. RN CM to pt room at this time and updated with POC. Pt and pt SO state that they are happy with this plan and deny further concerns.
[2024-02-17] MEDS: Enoxaparin 40 MG/0.4 ML Syringe SC (09:21)
[2024-02-17] MEDS: Pantoprazole Sodium 40 MG in 0.9% Normal Saline (100mL MB+) 100 ML 330 MG IV (09:53)
== END 2024-02-17 11:52 | disposition home health service (06) | DRG 329 ==
LOC: ED 07:13 → MS3 07:23
PROVIDERS: Physician Assistant; Surgery; Admitting Provider Surgery; Emergency Provider Emergency Medicine; PCP Family Medicine; Visit Provider Surgery
PROC: 0DTN0ZZ Resection of Sigmoid Colon, Open Approach (ICD-10-PCS; CPT 44204; principal; 2024-02-14 10:05)
DX: C18.4 Malignant neoplasm of transverse colon (principal); E43 Unspecified severe protein-calorie malnutrition; K56.1 Intussusception; K56.699 Other intestinal obstruction unspecified as to partial versus complete obstruction; D68.59 Other primary thrombophilia; Z93.3 Colostomy status; E78.5 Hyperlipidemia, unspecified; Z53.31 Laparoscopic surgical procedure converted to open procedure; Z68.25 Body mass index [BMI] 25.0-25.9, adult; Z80.0 Family history of malignant neoplasm of digestive organs
CPT/HCPCS: 36415; 74174; 80048; 80053; 80076; 81002; 82274; 82378; 83605; 85025; 85610; 85730; 88305; 88309; 88341; 88342; 93005; 93970; 94668; 99284; J7030; J7120; Q9967; A4216; J2405; J3490

== ENCOUNTER → 2024-03-14 | Outpatient (CLI) | payer SELFPAY, OTHER ==
--- NOTE | 2024-03-14 14:15 | CT_ITS ---
STUDY: CT CHEST, ABDOMEN T PELVIS WITH CONTRAST REASON FOR EXAM: Female, 64 years old. malignant neoplasm of colon. Prior left hemicolectomy. RADIATION DOSAGE (If Supplied By Facility): CTDIvol = ( 8.03 ) mGy, DLP = ( 755.54 ) mGycm TECHNIQUE: Transaxial imaging was performed following intravenous administration of Oral and IV Readi-CAT and 100mL Isovue-370. Individualized dose optimization techniques were used for this CT. COMPARISON: Comparison is made with prior study of December 27, 2023. FINDINGS: CHEST The lungs are normal. There is no demonstrated pleural abnormality. Normal heart and pericardium. No significant coronary artery calcification is seen. Normal mediastinum. Normal hilar regions. Normal unenhanced pulmonary arteries. Normal aorta arch and descending thoracic aorta. There are multi-level degenerative changes of the thoracic spine. ABDOMEN Multiple gallstones. Hepatomegaly. Normal spleen. Normal pancreas. Normal bilateral adrenal glands. Normal right kidney. Normal left kidney. Gastric distention due to fluid and oral contrast. Normal small intestine. A colostomy is seen in the left anterior abdominal wall. The previously seen mass in the distal transverse colon and intussusception is no longer seen. The appendix is visualized and appears normal. There is scattered atherosclerotic calcification of the abdominal aorta, without a demonstrated aneurysm. Normal inferior vena cava. Normal retroperitoneum. Normal abdominal wall. Marked degree of disc space narrowing at the L4-L5 level with grade 1-2 anterolisthesis of L4 on L5 due to spondylolysis. PELVIS Normal urinary bladder. There is no pelvic fluid. There is no pelvic lymphadenopathy or mass lesion. Normal visualized pelvic arteries. CT/CT Chest, Abd, Pel w/Contrast IMPRESSION: Status post left anterior abdominal wall colostomy with resection of the previously seen mass in the distal transverse colon. Gallstones. Hepatomegaly. Electronically Signed: Jorge Darby MD at 15:09 EDT ,
== END | disposition home or self-care (01) ==
LOC: CT 14:14
PROVIDERS: PCP Family Medicine; Referring Provider Surgery; Visit Provider Surgery
DX: C18.9 Malignant neoplasm of colon, unspecified (principal)
CPT/HCPCS: 71260; 74177; Q9967

== ENCOUNTER 2024-04-05 06:38 | Day surgery (SDC) | payer SELFPAY, OTHER ==
[2024-04-05] VITALS (9 sets, daily range): BP systolic 92–106; BP diastolic 49–75; PULSE 61–82; RESP 16–18; TEMP 36.2–36.8; O2SAT 98–100; BMI 22.2
[2024-04-05] MEDS: Lactated Ringers 1,000 ML 15 ML IV (06:58)
--- NOTE | 2024-04-05 07:22 | PCM.HP.BLA ---
History and Physical Date of Admission: 04/05/24 Date of Service: 03/05/24 MR#: [id number] Acct: [id number] Name: CHARLY SHEN Rep #: [id number] : 1960 Provider: Dr. Maximo Carrasco MD Age/Sex: 64/F Location: [facility] Status: Signed Intake Vital Signs 02/14/2413:53 Height 5 ft 3 in Intake Visit Reasons: WOUND CHK Chief Complaint: colostomy dos 02/13 Allergies No Known Allergies Allergy (Verified 02/24/24 09:18) Subjective Details: Patient presents following left hemicolectomy with creation of end colostomy on 02/14/2024. This is her second postoperative visit after initial visit on 02/24/2024. Patient once again presents with her . Overall she states she has been feeling well. She denies any significant discomfort. She shares that her daughter has become very proficient in doing her ostomy care and she has very few weeks. She also shares that the stoma seems to have shrunk significantly since her last visit. Below is recapitulated from patient's prior visit for ease review: Since hospital discharge they have been doing well, however, they present ahead of their regularly scheduled visit due to home health concerns over a possible irregularity with their colostomy. They report no significant postoperative pain. They report tolerance of a diet and moreover report to a healthy appetite where they are having to eat every 2 hours to satisfy their appetite. Concerning their bowel movements, they report that these have come regularly and are brown in color. They also added that they did pass a clot per rectum yesterday morning. They deny any fevers, chills, or nausea. Lastly, concerning some incidentally noted lower extremity swelling, they share that this has improved modestly. Objective Details: Constitutional: Upbeat, cooperative Abdomen: Well-healing laparotomy and port site incisions with skin chandan initially still intact. He is removed later in the visit), there is no surrounding erythema or drainage from the wounds. In the left upper quadrant patient's colostomy is healthy and well?perfused. It is approximately one half its prior circumference and the small ulcer at the 9 o'clock position is approximately one half its original size at the time of our last visit. There is loose light brown stool within the ostomy appliance. Coding Level of Care Code Global Post Op Diagnoses Status post left hemicolectomy Z90.49 Colon cancer C18.9 S/P colostomy Z93.3 Leg edema R60.0 PFSH Medical History (Updated 03/05/24 @ 13:[address] Maximo Carrasco MD) High cholesterol HLD (hyperlipidemia) Pleural effusion Constipation Surgical History (Updated 03/05/24 @ 13:[address] Maximo Carrasco MD) S/P colostomy No history of previous surgery Family History Father CAD (coronary artery disease) Heart disease HypertensionMother Heart disease Hypertension Heart failure Social History household members: spouse and family Smoking Status: Never smoker alcohol intake: never substance use type: does not use Assessment and Plan (No Qualifiers) Assessment and Plan (1) Status post left hemicolectomy: Status: Acute Comment: Patient is a 64-year-old female who presents for first postoperative visit ahead of her scheduled visit due to concerns around her stoma but this overall demonstrates a healthy appearance with some persistent edema and only a shallow based ulcer on the lateral aspect. I have reviewed stoma care and encouraged them to try to avoid any rubbing of the mucosa so that we will hopefully see this ulcer slough and the edema improved. In the interim I have shared that it is still too early to consider skin staple removal but have rescheduled patient for a later visit to complete this purpose. Lastly have encouraged him to keep the wounds open to air and to begin washing the site with soap and water so as to remove some of the crusted blood that is adherent to the incision. Update 03/05/2024: Patient and her family appear comfortable with caring for her stoma. She is well-healed on exam and her stoma has undergone expected shrinkage after the postoperative edema. Lastly, the small ulcerated area on the lateral aspect of her stoma mucosa is significantly smaller in size. Skin chandan were removed at today's visit and I have encouraged her to shower and lightly scrub her incisions to remove some remaining clotted blood. 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 Overall patient's colon cancer summary is reassuring that this is a well-differentiated tumor with clear margins and negative lymph node status 0/32 lymph nodes harvested. I discussed the TNM staging system and shared with patient and her that we would still need to complete both imaging of her chest as well as a colonoscopy within 3 months of surgery to evaluate for metastasis or synchronous tumors. Moreover I would like them to meet with oncology to assess their interest in any postoperative chemotherapy that may impact patient's disease-free survival. Pictures were used to illustrate relevant points and patient and her were appreciative of these explanations. Update 03/05/2024: Patient is pending CT imaging of her chest for completion of staging workup on 03/14/2024. She has established a oncology consultation for 03/19/2024. I did remind her that we will be looking to perform a colonoscopy within 3 months of her diagnosis to be sure there are no synchronous lesions. Would like her to meet with oncology before making these plans. Plan: ? Follow-up CT of the chest with IV contrast to complete staging ? Follow-up referral to oncology ? Follow-up plans for colonoscopy (3) S/P colostomy: Status: Acute Comment: Patient with a shallow-based ulcer on lateral stoma. Will reevaluate at follow-up visit for staple removal. Patient encouraged to avoid any trauma to the mucosa with regular abrasive forces from her appliance. Update 03/05/2024: Significantly improved in size. Would expect spontaneous resolution with more time (4) Leg edema: Status: Acute Comment: Patient with persistent bilateral lower extremity edema. Upon rereview of patient's duplex study obtained the day of her surgery there was evidence of some venous hypertension and possible proximal obstruction. Patient has been on prophylactic Lovenox therapy given her colon surgery and probable cancer diagnosis postoperatively. I have shared with patient and her that I would like to investigate the proximal venous system to determine more definitively if there is any concern for a proximal thrombus. Case was discussed in brief with Dr. De La Torre of vascular surgery as well as Dr. Darby of radiology. For now we will plan to obtain CT of the abdomen pelvis with a venous phase. Update 03/05/2024: Patient reporting some improvement of her bilateral lower extremity edema. This may be related to improve protein intake. Still, given her abnormal duplex study referenced above I am recommending we keep our plans for CT venography. As above this is pending for 03/14/2024. Plan: CT abdomen pelvis for CT venography and better evaluation of IVC and iliac veins I have examined the patient the following changes are noted:Patient states that she has done well since her last visit. She denies any concerns. She completed prep for today's procedure and her output is now clear. However, she denies being told she needed to complete an enema for the disconnected distal segment of her colon and rectum. Therefore we will seek an enema this morning for proceeding endoscopy suite for a thru?stoma diagnostic colonoscopy following a emergent surgery for colocolonic intussusception related to a new colon cancer diagnosis approximately 7 weeks ago.
--- NOTE | 2024-04-05 07:30 | COLBX_PTH ---
PATIENT: CHARLY SHEN LOC: [facility] U#:[id number] AGE/SX: 64/F ROOM: RE04/05/[address]: Dr. Maximo Carrasco MD : 1960 BED: DIS: 04/05/2024 SPEC #: [id number] RECD: 04/05/24 10:28 STATUS: OTIS VALE #: [id number] XAVI: 04/05/24 07:[address]: Maximo Carrasco DEPT: SURGICAL PATHOLOGY RECD BY: Ayaz Rodriguez ENTERED: 04/05/24 11:23 SP TYPE: COLON BX OTHR DR: Dr. Santi Segovia DO Tissues: A - Rectum, NOS B - Rectum, NOS C - Cecum, NOS D - Transverse colon E - Transverse colon Procedures: Surgery Specimen Level IV HEADER OPERATION: Colonoscopy with biopsies and polypectomy PRE-OP DIAGNOSIS: Status post left hemicolectomy, colon cancer TISSUE SUBMITTED: A- Rectal polyp, B- Rectal mucosal biopsy, C- Cecal mucosal biopsy,D- Transverse colon polyp, E- Transverse colon polyp #2 MICROSCOPIC DIAGNOSIS A. Rectal polyp, biopsy: Hyperplastic polyp. B. Rectal mucosa, biopsy: Focal acute colitis. See comment. C. Cecal mucosa, biopsy: Mild melanosis coli. D. Transverse colon polyp, biopsy: Tubular adenoma. E. Transverse colon polyp #2, biopsy: Fragments of benign colonic mucosa. See comment. Sandee 04/06/2024 COMMENT B. Rare cryptitis is identified. Clinical correlation is suggested. E. Neither hyperplastic nor adenomatous change is identified. Clinical correlation is suggested. MICROSCOPIC DESCRIPTION Slides are reviewed. GROSS DESCRIPTION A. Received in fixative is one container labeled with the patient's name and designated Rectal polyp. The specimen consists of one irregular fragment of light larry soft tissue that measures 0.3 x 0.3 x 0.1 cm. The specimen is totally submitted in one cassette. B. Received in fixative is one container labeled with the patient's name and designated Rectal mucosa biopsy. The specimen consists of multiple irregular fragments of light larry soft tissue that in aggregate measure 0.6 x 0.4 x 0.1 cm. The specimen is totally submitted in one cassette. C. Received in fixative is one container labeled with the patient's name and designated Cecal mucosal biopsy. The specimen consists of one irregular fragment of light larry soft tissue that measures 0.4 x 0.3 x 0.1 cm. The specimen is totally submitted in one cassette. D. Received in fixative is one container labeled with the patient's name and designated Transverse colon polyp. The specimen consists of a larry-pink polyp measuring 1.0 x 0.9 x 0.5cm. The polyp is bisected. Also present in the container are multiple fragments of larry soft tissue measuring in aggregate 1.0 x 0.5 x 0.1cm. Entire specimen is submitted in one cassette. E. Received in fixative is one container labeled with the patient's name and designated Transverse colon polyp #2. The specimen consists of one irregular fragment of light larry soft tissue that measures 0.5 x 0.2 x 0.1 cm. The specimen is totally submitted in one cassette. 04/05/2024 TC:5 CPT:40470x3
--- NOTE | 2024-04-05 07:35 | PCM.PRE.AN2 ---
ASA Classification* ASA Classification ASA Classification: 3 Assessment & Plan Anesthesia* Anesthesia Assessment Anesthesia Assessment: Discussed sedation and/or anesthesia options, risks, benefits, and alternatives with patient/parents/legal guardian/POA. Questions invited. The patient/parents/legal guardian/POA seems to understand and agrees to proceed with anesthesia plan. Reviewed the physical assessment, medical history, allergy history and patient home medications list prior to surgery/procedure/anesthetic and documented any changes. Performed airway and anesthesia risk assessments. Anesthesia Type Anesthesia Type: MAC (see written pre anesthesia record for full assessment) Anesthesia Focused Assessment* Temperature: 97.8 F Pulse Rate: 62 Blood Pressure: 106/66 Respiratory Rate: 16 Pulse Ox: 98 Airway Assessment Mouth opens: >3 cm Mallampati Score: II Focused Labs Anesthesia Preop lab: CBC WBC 5.8 K/mm3 (4.4-11.0) 02/17/24 04:30 RBC 3.57 M/mm3 (4.2-5.4) L 02/17/24 04:30 Hgb 10.3 g/dL (12.0-15.0) L 02/17/24 04:30 Hct 32.0 % (37-47) L 02/17/24 04:30 Plt Count 229 K/mm3 (150-450) 02/17/24 04:30 CHEMISTRY Potassium 4.0 mmol/L (3.5-5.1) 02/16/24 07:29 Sodium 141 mmol/L (136-145) 02/16/24 07:29 Magnesium 2.1 mg/dL (1.6-2.6) 12/27/23 15:20 BUN 33 mg/dL (7-18) H 02/16/24 07:29 Creatinine 0.75 mg/dL (0.55-1.02) 02/16/24 07:29 Glucose 107 mg/dL (74-106) H 02/16/24 07:29 TSH 3.35 uIU/mL (0.358-3.74) 12/28/23 06:40 COAG PT 12.6 SECONDS (11.7-14.9) 02/14/24 03:40 Pre-Assessment Diagnosis/Proposed Procedure Planned Operative Procedure(s): CSCOPE Anesthesia History 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 When Was Last Pacemaker Check QUESTION #4 FULL TEXT: You/Your Family Experience fever (hyperthermia) with Anesthesia Last Oral Intake Last Oral intake: Last Oral Intake NPO since 20:30 04/05/24 06:52 Meds taken in AM with sips of water? Meds patient instructed to take am of surgery PONV PONV - woodwind instrument repairer: PONV - woodwind instrument repairer Female Yes 04/02/24 13:55 HX of Motion Sickness No 04/02/24 13:55 HX of N/V After Surgery No 04/02/24 13:55 Non-Smoker Yes 04/02/24 13:55 Duration of Surgery greater No 04/02/24 13:55 than 60 minutes Number of Risk Factors 2 04/02/24 13:55 PONV Score Moderate Risk 04/02/24 13:55 Height & Weight Height & Weight: Anesthesia: Height & Weight Height 5 ft 3 in 04/05/24 06:52 Weight: 57 kg 04/05/24 06:52 Body Mass Index (BMI) 22.2 04/05/24 06:52 Respiratory Assessment Respiratory Assessment - woodwind instrument repairer: Respiratory Tract Infection Hx - woodwind instrument repairer Hx Respiratory Tract Infection No 04/02/24 13:55 STOP Sleep Apnea STOP Sleep Apnea - woodwind instrument repairer: STOP Sleep Apnea - woodwind instrument repairer Hx Hypertension No 04/02/24 13:55 Hx Sleep Apnea No 04/02/24 13:55 CPAP BIPAP Do you snore loudly (louder No 04/02/24 13:55 than talking or can be heard Do you often feel tired/ No 04/02/24 13:55 fatigued/ sleepy during daytime? Has anyone observed you stop No 04/02/24 13:55 breathing during sleep? STOP Results Negative 04/02/24 13:55 QUESTION #5 FULL TEXT : Do you snore loudly (louder than talking or can be heard through closed doors)? 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 Specify any problems Hx of Preganancy in last 3 No 04/02/24 13:55 Months Nurse Filling Out Transfusion DSCHRIBER 04/02/24 13:55 & Questions: Date: 04/02/24 04/02/24 13:55 Time: 13:56 04/02/24 13:55 Patient unable to answer at this time (ie. confused, unrespo /Reproduction History /Reproductive History - woodwind instrument repairer: /Reproductive Hx- woodwind instrument repairer Hx Now No 04/02/24 13:55 Gestational Age (in weeks): EDC: Hx Hx Para Hx Section SAB No 04/02/24 13:55 Active Medications Active Medications: Current Medications Generic Name Dose Route Start Last Admin Trade Name Freq PRN Reason Stop Dose Admin Lactated Ringer's 1,000 mls @ 15 mls/hr 04/05/24 06:45 04/05/24 06:58 IV 15 mls/hr .Q48H YUE Administration PFSH Medical History Colostomy in place Wears glasses Post-menopausal Cancer Back pain Heartburn Non-smoker History of edema History of echocardiogram High cholesterol HLD (hyperlipidemia) Pleural effusion Constipation Home Medications ?Medication ?Instructions ?Recorded ?Last Taken ?Type atorvastatin 40 mg tablet 40 mg PO QHS cholesterol 12/27/23 12/26/23 History REDOX 2 oz PO 5X/DAY 08/19/24 Unknown History Allergy/AdvReac Type Severity Reaction Status Date / Time No Known Allergies Allergy Verified 04/05/24 06:52 Family History Father CAD (coronary artery disease) Heart disease Hypertension Mother Heart disease Hypertension Heart failure Surgical History Hx of foot surgery S/P colostomy Social History household members: spouse and family Smoking Status: Never smoker alcohol intake: never substance use type: does not use Review of Systems (Anesthesia) ROS Narrative System reviewed and no additional complaints, except as documented.
--- NOTE | 2024-04-05 08:57 | PCM.POST.ANE ---
Anesthesia: Postop Eval I Current Vital Signs Temperature: 97.1 F Pulse Rate: 82 Blood Pressure: 102/49 Respiratory Rate: 18 Pulse Ox: 99 Oxygen Delivery Method: Room Air Assessment Airway patent: Yes Spontaneous unlabored respirations: Yes Mental status: Asleep nausea: No Vomiting: No Anesthesia Complication: No Fluid Hydration Crystalloid volume administer (ml): 1,400 Total IV fluid infused: 1,400 Progress Note Anesthesia document: Postop Eval 1 completed: Yes
--- NOTE | 2024-04-05 09:00 | OP.COLON_ITS ---
Patient Name: Rehan Richard Procedure Date: 04/05/2024 7:28 AM Date of : 1960 Age: 64 Procedure: Colonoscopy Indications: Follow-up of colon cancer Providers: Maximo Carrasco MD Referring MD: Santi Segovia Medicines: See the Anesthesia note for documentation of the administered medications Patient Profile: Refer to note in patient chart for documentation of history and physical. Last Colonoscopy: none. The patient's first colonoscopy is today. Complications: No immediate complications. Estimated blood loss: Minimal. Procedure: Pre-Anesthesia Assessment: - The heart rate, respiratory rate, oxygen saturations, blood pressure, adequacy of pulmonary ventilation, and response to care were monitored throughout the procedure. After I obtained informed consent, the scope was passed under direct vision. Throughout the procedure, the patient's blood pressure, pulse, and oxygen saturations were monitored continuously. The colonoscope was introduced through the transverse colostomy and advanced to the cecum, identified by transillumination. The colonoscopy was somewhat difficult due to post-surgical anatomy. Successful completion of the procedure was aided by lavage. Scope In: 7:52:29 AM Scope Withdrawal Time 0 hours 30 minutes 38 seconds Scope Out: 8:46:19 AM Total Procedure Duration Time 0 hours 53 minutes 50 seconds Findings: Skin tags were found on perianal exam. A localized area of moderately friable mucosa with contact bleeding was found in the rectum. Biopsies were taken with a cold forceps for histology. Estimated blood loss was minimal. A 5 mm, non-bleeding polyp was found in the rectum. The polyp was semi-pedunculated. The polyp was removed with a hot snare. Resection and retrieval were complete. Estimated blood loss: none. The exam was otherwise without abnormality on direct and retroflexion views. Localized pseudopolyps were found in the cecum. Biopsies were taken with a cold forceps for histology. Estimated blood loss was minimal. A 2 mm, non-bleeding polyp was found in the proximal transverse colon. The polyp was sessile. Biopsies were taken with a cold forceps for histology. Estimated blood loss was minimal. A 10 mm polyp was found in the proximal transverse colon. The polyp was pedunculated. The polyp was removed with a hot snare. Resection and retrieval were complete. Impression: - Perianal skin tags found on perianal exam. - Friability with contact bleeding in the rectum. Biopsied. - One 5 mm, non-bleeding polyp in the rectum, removed with a hot snare. Resected and retrieved. - The examination was otherwise normal on direct and retroflexion views. - Pseudopolyps in the cecum. Biopsied. - One 2 mm, non-bleeding polyp in the proximal transverse colon. Biopsied. - One 10 mm polyp in the proximal transverse colon, removed with a hot snare. Resected and retrieved. Recommendation: - Discharge patient to home (via wheelchair). - Resume previous diet today. - No aspirin, ibuprofen, naproxen, or other non-steroidal anti-inflammatory drugs for 2 days after biopsy. - Await pathology results. - Repeat colonoscopy date to be determined after pending pathology results are reviewed for surveillance. - Telephone my office for pathology results in 1 week. Procedure Code(s): --- Professional --- 06400, Colonoscopy through stoma; with removal of tumor(s), polyp(s), or other lesion(s) by snare technique 48674, 59, Colonoscopy through stoma; with biopsy, single or multiple Diagnosis Code(s): --- Professional --- K62.5, Hemorrhage of anus and rectum D12.8, Benign neoplasm of rectum D12.3, Benign neoplasm of transverse colon (hepatic flexure or splenic flexure) K51.40, Inflammatory polyps of colon without complications K64.4, Residual hemorrhoidal skin tags C18.9, Malignant neoplasm of colon, unspecified CPT copyright 2021 [employer]. All rights reserved. The codes documented in this report are preliminary and upon screed person review may be revised to meet current compliance requirements. Maximo Carrasco MD 04/05/2024 9:00:22 AM This report has been signed electronically. Number of Addenda: 0 Note Initiated On: 04/05/2024 7:28 AM
--- NOTE | 2024-04-05 09:00 | OP.CCLET_ITS ---
04/05/2024 Santi Segovia Re : Colonoscopy procedure for Rehan Richard Dear Luca This procedure was performed on March. My impressions and recommendations are as follows: Impressions : - Perianal skin tags found on perianal exam. - Friability with contact bleeding in the rectum. Biopsied. - One 5 mm, non-bleeding polyp in the rectum, removed with a hot snare. Resected and retrieved. - The examination was otherwise normal on direct and retroflexion views. - Pseudopolyps in the cecum. Biopsied. - One 2 mm, non-bleeding polyp in the proximal transverse colon. Biopsied. - One 10 mm polyp in the proximal transverse colon, removed with a hot snare. Resected and retrieved. Recommendations : - Discharge patient to home (via wheelchair). - Resume previous diet today. - No aspirin, ibuprofen, naproxen, or other non-steroidal anti-inflammatory drugs for 2 days after biopsy. - Await pathology results. - Repeat colonoscopy date to be determined after pending pathology results are reviewed for surveillance. - Telephone my office for pathology results in 1 week. My findings are described in the full procedure note, which is enclosed. If I can be of further assistance, please feel free to contact me at Doctor phone number(s): , Work: . Sincerely, Maximo Carrasco MD 04/05/2024 9:00:22 AM This report has been signed electronically.
--- NOTE | 2024-04-05 09:01 | PCM.POSTANE2 ---
Anesthesia Postop Eval I Sum Postop Eval Completion status Anesthesia document: Postop Eval 1 completed: Yes Anesthesia Postop Eval I Summary Anesthesia Postop Eval I Summary: Anesthesia Postop Eval I: Assessment Summary Airway patent Yes 04/05/24 08:58 [email or web address] Spontaneous unlabored Yes 04/05/24 08:58 [email or web address] respirations Mental status Asleep 04/05/24 08:58 [email or web address] nausea No 04/05/24 08:58 [email or web address] Vomiting No 04/05/24 08:58 [email or web address] Anesthesia Postop Eval I: Fluid Summary Crystalloid volume administer 1,400 04/05/24 08:58 [email or web address] (ml) Colloids volume administered ( ml) Blood Product volume administered (ml) Total IV fluid infused 1,400 04/05/24 08:58 [email or web address] Anesthesia Postop Eval I: Summary Notes Anesthesia Complication No 04/05/24 08:58 [email or web address] Anesthesia Complication Comment: Post-operative progress note Anesthesia: Postop Eval II Evaluation Mental status: Awake Pain Level: 0 nausea: No Vomiting: No
== END 2024-04-05 09:50 | disposition home or self-care (01) ==
LOC: EN 06:38 → AC 06:38
PROVIDERS: PCP Family Medicine; Referring Provider Family Medicine; Visit Provider Surgery
PROC: 0DJD8ZZ Inspection of Lower Intestinal Tract, Via Natural or Artificial Opening Endoscopic (ICD-10-PCS; CPT 45378; principal; 2024-04-05 07:25)
DX: C18.9 Malignant neoplasm of colon, unspecified (principal); Z93.3 Colostomy status; K62.5 Hemorrhage of anus and rectum; K63.5 Polyp of colon; K62.1 Rectal polyp; E78.00 Pure hypercholesterolemia, unspecified; Z90.49 Acquired absence of other specified parts of digestive tract; R60.0 Localized edema; K64.4 Residual hemorrhoidal skin tags; D12.0 Benign neoplasm of cecum
CPT/HCPCS: 44394; 44389; 88305; J7120; J2405

== ENCOUNTER 2024-06-04 22:31 | Emergency (ER) | payer OTHER, SELFPAY ==
[2024-06-04 22:32] VITALS: BP 148/83; PULSE 64; RESP 18; TEMP 36.7; O2SAT 98; BMI 26.4
[2024-06-04 23:26] LABS: Absolute Lymphocyte Count 1.12 X10^3/uL (0.83-4.51); Absolute Neutrophil Count 4.2 X10^3/uL (2.0-7.7); Basophil# 0.02 X10^3/uL; Basophil% 0.3 % (0-1); Eosinophil# 0.11 X10^3/uL; Eosinophils% 1.9 % (0-5); Hematocrit 36.4 % (37-47); Hemoglobin 12.3 g/dL (12.0-15.0); Lymphocyte # 1.12 X10^3/ul (0.83-4.51); Lymphocyte % 19.1 % (19-41); Mean Corp Hgb Conc 33.8 g/dL (32-36); Mean Corpuscular Hgb 29.7 pg (27.0-32.0); Mean Corpuscular Volume 87.9 fL (81-99); Monocyte% 6.8 % (0-10); NRBC Flagged by Analyzer 0 % (0-5); Neutrophil # 4.21 X10^3/uL (2.7-7.7); Neutrophil % 71.7 % (47-70); Platelet Count 281 K/mm3 (150-450); Red Blood Count 4.14 M/mm3 (4.2-5.4); White Blood Count 5.9 K/mm3 (4.4-11.0)
--- NOTE | 2024-06-04 23:33 | RAD_ITS ---
INDICATION: edema EXAMINATION/TECHNIQUE: X-RAY - XR Chest 2 Views COMPARISON: No previous relevant examinations available for comparison.. FINDINGS: LIFE-SUPPORT AND LINES: 1. None HEART AND VESSELS: The cardiac silhouette, pulmonary vasculature have normal appearance. No evidence of congestive failure. LUNGS AND PLEURAL SPACES: Lungs are clear. No focal infiltrate, consolidation or effusions. No evidence of pneumothorax. Mild pleural thickening and blunting of the posterior costophrenic angles. MEDIASTINUM AND HILAR REGIONS: No masses adenopathy noted. No areas of calcification. Visualized upper airway is normal in position. BONY ELEMENTS: No acute bony changes noted. RAD/Chest PA and Lateral IMPRESSION: 1. Mild pleural thickening versus trace pleural effusions. 2. No other evidence of acute cardiopulmonary process. Electronically Signed: Thanh Marcos MD at 0:12 EDT ,
[2024-06-04 23:43] LABS: AST(SGOT) 32 U/L (15-37); Alanine Aminotransfer ALT/SGPT 32 U/L (13-56); Albumin, Serum 1.5 g/dL (3.2-5.0); Alkaline Phosphatase 82 U/L (45-117); Anion Gap 5 (5-15); BUN 27 mg/dL (7-18); BUN/Creat Ratio 23.1 RATIO (10-20); Bilirubin, Direct 0.08 mg/dL (0.00-0.30); Calcium,Total 7.6 mg/dL (8.5-10.1); Chloride 111 mmol/L (98-107); Creatinine, Serum 1.17 mg/dL (0.55-1.02); EST Glomerular Filtration Rate 49 mL/min (>60); Est Glom Filt Rate - Afr Amer 60 mL/min (>60); Estimated Creatinine Clearance 44.92 ml/min; Globulin 3.7 g/dL (2.2-4.2); Glucose 130 mg/dL (74-106); Magnesium 2.6 mg/dL (1.6-2.6); Potassium 4.3 mmol/L (3.5-5.1); Protein, Total 5.2 g/dL (6.4-8.2); Sodium Level 139 mmol/L (136-145)
[2024-06-04 23:57] LABS: BNP,B-Type NATRIURETIC PEPTIDE 90.8 pg/mL (0-100)
[2024-06-05 00:32] VITALS: BP 145/85; PULSE 67; RESP 18; TEMP 37.1; O2SAT 100
--- NOTE | 2024-06-05 00:36 | EDS_ITS ---
HPI History of Present Illness Chief Complaint: Edema Informant: patient and spouse/S.O. Narrative Narrative: Patient is a 64-year-old female with past medical history of colon cancer as well as hyperlipidemia. Patient states she had mild swelling to her legs pre viously but after the colon cancer treatment she feels like the swelling has worsened. She states she is currently on a water pill but despite taking this there is really been no improvement of her swelling. She denies any fevers or chills or trauma but secondary to the persistent swelling comes in for evaluation [facility] Medical History Anemia Colostomy in place Wears glasses Post-menopausal Cancer Back pain Heartburn Non-smoker History of edema History of echocardiogram High cholesterol HLD (hyperlipidemia) Pleural effusion Constipation Home Medications ?Medication ?Instructions ?Recorded ?Last Taken ?Type atorvastatin 40 mg tablet 40 mg PO QHS cholesterol 12/27/23 12/26/23 History REDOX 2 oz PO 5X/DAY 04/02/24 Unknown History ferrous sulfate 1 tab PO DAILY 06/04/24 Unknown History furosemide 40 mg tablet 40 mg PO DAILY 06/04/24 Unknown History Allergy/AdvReac Type Severity Reaction Status Date / Time No Known Allergies Allergy Verified 06/04/24 22:33 Family History Father CAD (coronary artery disease) Heart disease Hypertension Mother Heart disease Hypertension Heart failure Brother Colon cancer Surgical History Hx of foot surgery S/P colostomy Social History household members: spouse and family Smoking Status: Never smoker alcohol intake: never substance use type: does not use ROS ROS ED Constitutional Constitutional ED: Denies chills or fever(s) Eyes Eyes: Denies change in vision ENT ENT ED: Denies sore throat Cardiovascular Cardiovascular: Denies chest pain Respiratory/Chest Respiratory/Chest: Denies cough or dyspnea Gastrointestinal Gastrointestinal: Denies abdominal pain, diarrhea, nausea or vomiting Genitourinary Genitourinary ED: Denies dysuria Musculoskeletal Musculoskeletal: Reports other Details: Positive leg swelling ; Denies myalgias Integumentary Denies rash Neurologic Neurologic: Denies headache(s) Hematologic/Lymphatic Hematologic/Lymphatic: Denies easy bleeding or easy bruising EXAM Physical Exam Const Vital Signs: 06/04/24 22:32 06/04/24 22:51 Temperature 98.1 F Temperature Source Oral Pulse Rate 64 Respiratory Rate 18 Respiratory Effort Normal Respiratory Pattern Normal Blood Pressure 148/83 H Blood Pressure Mean 104 Pulse Ox 98 Oxygen Delivery Method Room Air Positive well nourished and well developed General Appearance ED: well developed HEENT HEENT Narrative: Normocephalic atraumatic No tongue or lip swelling no oral lesions no airway edema or compromise Eyes PERRL and EOMs intact bilaterally General Eye ED: Negative for scleral icterus Neck supple and no JVD Chest Wall palpation of chest normal Resp normal respiratory effort and clear to auscultation bilaterally Resp Narrative: No crackles noted Cardio regular rate and regular rhythm GI normal to inspection, nondistended, normoactive bowel sounds, non-tender, non- distended and no masses GI Narrative: No fluid wave or pulsatile mass Auscultation: normoactive bowel sounds Palpation: soft Extremity Extremity Narrative: Patient does have +3-4 pitting edema from the dorsum of the feet to just above the knees. However negative Homans' sign bilaterally and no overlying erythema or warmth to suggest infection Compartments are soft and compressible going against compartment syndrome Neuro oriented x3, CN's II-XII intact bilaterally and no sensory deficits noted Sensorium / Orientation: alert Motor Exam: strength 5/5 throughout Psych mental status grossly normal Skin no rashes or lesions noted and no wounds General Skin Exam: Negative for jaundice MDM MDM MDM Narrative Medical decision making narrative: Patient arrived to the ER slightly hypertensive but otherwise with stable vitals. She reported a longstanding history of swelling though feels it is worse in the last few weeks. Differential diagnosis is for congestive heart failure versus lymphedema versus hypoalbuminemia versus acute kidney injury or ascites secondary to hepatic failure. Therefore basic blood work was obtained. Labs revealed the patient's albumin and protein values are low which could indicate that her swelling is most likely third spacing. Kidney function and liver enzymes are normal going against MACY or hepatic failure and her proBNP is normal and chest x-ray does not reveal pleural effusion/interstitial edema going against CHF. Therefore at this time she can continue her diuretic but as symptoms seem to be more related to third spacing from diminished protein and albumin she was advised to increase this within her diet but as she does not have signs of infection or significant volume overload or hypoxia there is no need for further workup and she is otherwise safe for discharge History & Record Review Discussion w/independent historian: Patient and Significant other Lab Data Attestation: I reviewed the patient's lab results. Labs: Laboratory Results - last 24 hr 06/04/24 22:55 WBC 5.9 RBC 4.14 L Hgb 12.3 Hct 36.4 L MCV 87.9 MCH 29.7 MCHC 33.8 RDW Std Deviation 42.0 RDW Coeff of Jose 13.0 Plt Count 281 MPV 10.0 Immature Gran % (Auto) 0.200 Neut % (Auto) 71.7 H Lymph % (Auto) 19.1 [place] % (Auto) 6.8 Eos % (Auto) 1.9 Baso % (Auto) 0.3 Absolute Neuts (auto) 4.2 Absolute Lymphs (auto) 1.12 Nucleated RBC % 0 Sodium 139 Potassium 4.3 Chloride 111 H Carbon Dioxide 24.0 Anion Gap 5 BUN 27 H Creatinine 1.17 H Estim Creat Clear Calc 44.92 Est GFR (MDRD) Af Amer 60 Est GFR (MDRD) Non-Af 49 L BUN/Creatinine Ratio 23.1 H Glucose 130 H Calcium 7.6 L Magnesium 2.6 Total Bilirubin 0.20 Direct Bilirubin 0.08 AST 32 ALT 32 Alkaline Phosphatase 82 B-Natriuretic Peptide 90.8 Total Protein 5.2 L Albumin 1.5 L Globulin 3.7 Radiography Diagnostic Testing: Clinical Impression(s) from Imaging Studies Chest X-Ray 06/04/24 23:33 IMPRESSION: 1. Mild pleural thickening versus trace pleural effusions. 2. No other evidence of acute cardiopulmonary process. Electronically Signed: Thanh Marcos MD at 0:12 EDT , Chest x-ray as interpreted by the emergency medicine physician reveals no acute infiltrate pneumothorax or pleural effusion Discharge Plan Triage Chief Complaint: Edema ED Provider: Judah Phelan Dx/Rx/DC Orders Clinical Impression: Peripheral edema, Edema due to hypoalbuminemia, Hyperlipidemia, Colon cancer Instructions: ED Peripheral Edema, Bilateral, ED Lymphedema Prescriptions: No Action atorvastatin 40 mg tablet 40 mg PO QHS REDOX 2 oz PO 5X/DAY furosemide 40 mg tablet 40 mg PO DAILY ferrous sulfate 1 tab PO DAILY Primary Care Provider: Santi Segovia Referrals: Santi Segovia DO [Primary Care Provider] - Activity Restrictions/Additional Instructions: Please talk to your family doctor about a referral to the lymphedema clinic to see if this will help with your leg swelling. Today's workup did not show signs of kidney failure liver failure or heart failure. Your protein and albumin levels are low and therefore please increase this within your diet to see if t his helps with swelling. Return to the ER should you have any further concerns Print Language: Scottish Disposition Disposition: Home, Self Care Discharge Date/Time: 06/05/24 00:54
== END 2024-06-05 00:54 | disposition home or self-care (01) ==
PROVIDERS: Emergency Provider Emergency Medicine; PCP Family Medicine; Visit Provider Emergency Medicine
DX: R60.9 Edema, unspecified (principal); Z93.3 Colostomy status; E88.09 Other disorders of plasma-protein metabolism, not elsewhere classified; E78.00 Pure hypercholesterolemia, unspecified; Z85.038 Personal history of other malignant neoplasm of large intestine; Z79.899 Other long term (current) drug therapy
CPT/HCPCS: 71046; 80048; 80076; 83735; 83880; 85025; 99283

== ENCOUNTER 2024-06-07 20:02 | Inpatient (IN) | payer OTHER, SELFPAY ==
[2024-06-07 20:03] VITALS: BP 172/81; PULSE 62; RESP 16; TEMP 36.8; O2SAT 98; BMI 26.5
[2024-06-07 22:03] VITALS: BP 123/85; PULSE 69; RESP 16; O2SAT 98
--- NOTE | 2024-06-07 22:50 | RAD_ITS ---
EXAM: XR CHEST, 2 VIEWS CLINICAL INDICATION: edema TECHNIQUE: Frontal and lateral views of the chest. COMPARISON: Previous chest radiographs of 06/04/2024. FINDINGS: LUNGS AND PLEURAL SPACES: Stable mild blunting of the costophrenic angles due to small pleural effusions versus basilar pleural thickening. Lateral view shows development of minimal patchy infiltrate within one of the lung bases posteriorly. Lateral view shows pulmonary hyperinflation with flattening of the hemidiaphragms. HEART: Heart size is borderline enlarged with normal pulmonary vasculature. MEDIASTINUM: Mild elongation of the thoracic aorta. BONES/JOINTS: There are stable minimal anterior wedging one midthoracic vertebral body, unchanged. No acute osseous abnormality. SOFT TISSUES: Unremarkable. RAD/Chest PA and Lateral IMPRESSION: Stable blunting of the costophrenic angles by basilar pleural thickening versus small pleural effusions. Minimal infiltrate seen within one of the lung bases posteriorly on the lateral view, and could be due to atelectasis, aspiration pneumonitis, or minimal pneumonia. No evidence for pulmonary edema. Electronically Signed: Jasbir Alvarez MD at 23:42 EDT ,
[2024-06-07 22:51] LABS: Absolute Lymphocyte Count 1.57 X10^3/uL (0.83-4.51); Absolute Neutrophil Count 3.2 X10^3/uL (2.0-7.7); Basophil# 0.02 X10^3/uL; Basophil% 0.4 % (0-1); Eosinophil# 0.17 X10^3/uL; Eosinophils% 3.1 % (0-5); Hematocrit 34.7 % (37-47); Hemoglobin 11.6 g/dL (12.0-15.0); Lymphocyte # 1.57 X10^3/ul (0.83-4.51); Mean Corp Hgb Conc 33.4 g/dL (32-36); Mean Corpuscular Hgb 29.4 pg (27.0-32.0); Mean Corpuscular Volume 87.8 fL (81-99); Mean Platelet Vol. 9.6 fl (6.2-12.0); Monocyte# 0.43 X10^3/uL; Monocyte% 7.9 % (0-10); NRBC Flagged by Analyzer 0 % (0-5); Neutrophil # 3.22 X10^3/uL (2.7-7.7); Neutrophil % 59.4 % (47-70); Platelet Count 273 K/mm3 (150-450); Red Blood Count 3.95 M/mm3 (4.2-5.4); White Blood Count 5.4 K/mm3 (4.4-11.0)
[2024-06-07 23:07] LABS: AST(SGOT) 28 U/L (15-37); Alanine Aminotransfer ALT/SGPT 27 U/L (13-56); Albumin, Serum 1.3 g/dL (3.2-5.0); Alkaline Phosphatase 81 U/L (45-117); Anion Gap 3 (5-15); BNP,B-Type NATRIURETIC PEPTIDE 89.1 pg/mL (0-100); BUN 38 mg/dL (7-18); BUN/Creat Ratio 31.9 RATIO (10-20); Bilirubin, Direct 0.05 mg/dL (0.00-0.30); Calcium,Total 8.4 mg/dL (8.5-10.1); Chloride 112 mmol/L (98-107); Creatinine, Serum 1.19 mg/dL (0.55-1.02); EST Glomerular Filtration Rate 49 mL/min (>60); Est Glom Filt Rate - Afr Amer 59 mL/min (>60); Estimated Creatinine Clearance 44.21 ml/min; Globulin 3.3 g/dL (2.2-4.2); Glucose 104 mg/dL (74-106); Potassium 4.6 mmol/L (3.5-5.1); Protein, Total 4.6 g/dL (6.4-8.2); Sodium Level 140 mmol/L (136-145)
[2024-06-07 23:09] LABS: Mucous, Urine 0 SEEN /hpf (<or=2+)
[2024-06-07 23:10] LABS: Color, Urine Yellow (Yellow); Glucose, Dipstick Normal (Normal); Ketone-Dipstick Negative (Negative); Leukocyte Esterase-Dipstick 100 /ul (Negative); Nitrite-Dipstick Negative (Negative); Occult Blood-Urine 150 /ul (Negative); Protein-Dipstick 500 mg/dl (Negative); Specific Gravity, Urine 1.015 (1.002-1.030); Urine Bilirubin Dipstick Negative (Negative); Urine Clarity Clear (Clear); Urine Urobilinogen Normal (Normal)
[2024-06-07 23:24] LABS: Bacteria 1+ /hpf (None Seen); Fine Granular Cast- Urine 0-5 SEEN /lpf (0-5); Red Blood Cells-Urine 5-10 SEEN /hpf (0-5); Renal Epithelial Cells 0-5 SEEN /hpf (0-5); Squamous Epithelial Cells - UA 0-5 SEEN /hpf (5-10); Transitional Epithelial - Ur 0-5 SEEN /hpf (0-5); White Blood Cells 10-25 SEEN /hpf (0-5)
[2024-06-08] VITALS: BP 122/72; PULSE 65; RESP 16; O2SAT 94
--- NOTE | 2024-06-08 00:42 | EX.ED.DYSGE1 ---
HPI History of Present Illness Chief Complaint: Edema Informant: patient Narrative Narrative: Patient is 64-year-old female with history of colon cancer status post resection and colostomy performed by Dr. Carrasco presenting with worsening lower extremity edema and now swelling of her abdomen. Patient states for the past few months she has had what started out as swelling in her ankles but is moved up her legs. It is now in her abdomen and she feels like her abdomen is much more swollen. She states that she has been taking a water pill but is not having any improvement now and is now actually urinating less. She denies any shortness of breath or difficulty breathing. She denies any change in her ostomy output. Denies any urinary symptoms. Denies any chest pain. No fever or chills reported. No history of any alcohol use or liver problems that she is aware of. No other complaints or concerns at this time. [facility] Medical History Anemia Colostomy in place Wears glasses Post-menopausal Cancer Back pain Heartburn Non-smoker History of edema History of echocardiogram High cholesterol HLD (hyperlipidemia) Pleural effusion Constipation Home Medications ?Medication ?Instructions ?Recorded ?Last Taken ?Type atorvastatin 40 mg tablet 40 mg PO QHS cholesterol 12/27/23 12/26/23 History REDOX 2 oz PO 5X/DAY 04/02/24 Unknown History ferrous sulfate 1 tab PO DAILY 06/04/24 Unknown History furosemide 40 mg tablet 40 mg PO DAILY 06/04/24 Unknown History Allergy/AdvReac Type Severity Reaction Status Date / Time No Known Allergies Allergy Verified 06/07/24 20:03 Family History Father CAD (coronary artery disease) Heart disease Hypertension Mother Heart disease Hypertension Heart failure Brother Colon cancer Surgical History Hx of foot surgery S/P colostomy Social History household members: spouse and family Smoking Status: Never smoker alcohol intake: never substance use type: does not use ROS ROS ED Constitutional Constitutional ED: Denies chills or fever(s) Cardiovascular Cardiovascular: Reports other Details: edema ; Denies chest pain Respiratory/Chest Respiratory/Chest: Denies cough, dyspnea or dyspnea on exertion Gastrointestinal Gastrointestinal: Reports other Details: abdominal swelling ; Denies abdominal pain, nausea or vomiting Musculoskeletal Musculoskeletal: Denies arthralgias or myalgias Integumentary Denies rash Neurologic Neurologic: Denies paresthesias or weakness Hematologic/Lymphatic Hematologic/Lymphatic: Denies easy bleeding or easy bruising EXAM Physical Exam Const Vital Signs: 06/07/24 20:03 06/07/24 20:13 06/07/24 22:03 Temperature 98.2 F Temperature Source Oral Pulse Rate 62 69 Respiratory Rate 16 16 Respiratory Effort Normal Non-Labored Respiratory Pattern Normal Blood Pressure 172/81 H 123/85 H Blood Pressure Mean 111 97 Pulse Ox 98 98 Oxygen Delivery Method Room Air Room Air 06/08/24 00:00 06/08/24 00:47 Temperature 98.1 F Temperature Source Pulse Rate 65 62 Respiratory Rate 16 12 Respiratory Effort Respiratory Pattern Blood Pressure 122/72 H 139/79 H Blood Pressure Mean 88 99 Pulse Ox 94 100 Oxygen Delivery Method Room Air Positive well nourished and well developed General Appearance ED: well developed and NAD; Negative for pallor HEENT Reports moist mucous membranes Neck supple and no JVD Chest Wall inspection of chest normal and palpation of chest normal Resp normal respiratory effort and clear to auscultation bilaterally Cardio regular rate and regular rhythm GI GI Narrative: Mildly distended abdomen, colostomy in place. Normal bowel sounds. Regular appearing stool in the colostomy bag. Mild fluid wave present. Extremity Extremity Narrative: Pitting edema up to the hips present Neuro oriented x3 Sensorium / Orientation: alert Motor Exam: Negative for general weakness Psych mental status grossly normal Skin no rashes or lesions noted and no wounds General Skin Exam: Negative for jaundice or pallor MDM MDM MDM Narrative Medical decision making narrative: Patient evaluated for worsening swelling and is now not responding to her diuretic. Patient was seen in the ER for similar complaint 2 days ago and at that time her swelling/be more from third spacing and hypoproteinemia. Patient is not have any history of liver disease. Does not have a history of alcohol abuse. Upon arrival patient is hypertensive however on recheck this has normalized without any further intervention. Patient's lab work shows mild elevation of her chloride likely from her Lasix as well as a mild elevation of her creatinine. Her baseline appears to be 0.6 but today she is 1.19. Her bilirubin is normal as well as her liver enzymes. Her protein and albumin are quite low. Urinalysis is consistent mostly with contamination. Will send for culture but defer treatment at this time. Chest x-ray viewed by myself as well as radiology does not show any acute process. Patient does not report any recent cough or respiratory symptoms. Discussed with hospitalist, given that patient is having decreased urine output now despite being on Lasix, her creatinine is above her baseline and she is almost developing anasarca I do think she would benefit from admission for further diuresis. Also discussed obtaining a nutrition consult given her profound malnutrition. Patient is agreeable this plan of care. Patient is hemodynamically stable at time of disposition. Bedside ultrasound performed of the abdomen does show the mild amount of free fluid but no significant ascites present. Lab Data Attestation: I reviewed the patient's lab results. Labs: Laboratory Results - last 24 hr 06/07/24 06/07/24 22:45 22:48 WBC 5.4 RBC 3.95 L Hgb 11.6 L Hct 34.7 L MCV 87.8 MCH 29.4 MCHC 33.4 RDW Std Deviation 42.0 RDW Coeff of Jose 13.0 Plt Count 273 MPV 9.6 Immature Gran % (Auto) 0.200 Neut % (Auto) 59.4 Lymph % (Auto) 29.0 [place] % (Auto) 7.9 Eos % (Auto) 3.1 Baso % (Auto) 0.4 Absolute Neuts (auto) 3.2 Absolute Lymphs (auto) 1.57 Nucleated RBC % 0 Sodium 140 Potassium 4.6 Chloride 112 H Carbon Dioxide 25.0 Anion Gap 3 L BUN 38 H Creatinine 1.19 H Estim Creat Clear Calc 44.21 Est GFR (MDRD) Af Amer 59 L Est GFR (MDRD) Non-Af 49 L BUN/Creatinine Ratio 31.9 H Glucose 104 Calcium 8.4 L Total Bilirubin 0.10 L Direct Bilirubin 0.05 AST 28 ALT 27 Alkaline Phosphatase 81 B-Natriuretic Peptide 89.1 Total Protein 4.6 L Albumin 1.3 L Globulin 3.3 Urine Color Yellow Urine Clarity Clear Urine pH 6.0 Ur Specific [place] 1.015 Urine Protein 500 H Urine Glucose (UA) Normal Urine Ketones Negative Urine Occult Blood 150 H Urine Nitrite Negative Urine Bilirubin Negative Urine Urobilinogen Normal Ur Leukocyte Esterase 100 H Urine RBC 5-10 SEEN Urine WBC 10-25 SEEN Ur Squamous Epith Cells 0-5 SEEN Ur Transition Epith Cell 0-5 SEEN Ur Renal Epithelial Cell 0-5 SEEN Urine Bacteria 1+ Fine Granular Casts 0-5 SEEN Urine Mucus 0 SEEN Radiography Diagnostic Testing: Clinical Impression(s) from Imaging Studies Chest X-Ray 06/07/24 22:50 IMPRESSION: Stable blunting of the costophrenic angles by basilar pleural thickening versus small pleural effusions. Minimal infiltrate seen within one of the lung bases posteriorly on the lateral view, and could be due to atelectasis, aspiration pneumonitis, or minimal pneumonia. No evidence for pulmonary edema. Electronically Signed: Jasbir Alvarez MD at 23:42 EDT , Discharge Plan Triage Chief Complaint: Edema Other Complaint: Complaint ED Provider: Izabella Gamino Dx/Rx/DC Orders Clinical Impression: Peripheral edema, Severe malnutrition, Elevated serum creatinine Prescriptions: No Action atorvastatin 40 mg tablet 40 mg PO QHS REDOX 2 oz PO 5X/DAY PRN (Reason: WBC) furosemide 40 mg tablet 40 mg PO DAILY PRN (Reason: edema) ferrous sulfate 1 tab PO DAILY Primary Care Provider: Michael Stanley Referrals: Michael Stanley DO [Primary Care Provider] - Print Language: Turkmen Disposition Disposition: Acute Care [facility]
[2024-06-08 00:47] VITALS: BP 139/79; PULSE 62; RESP 12; TEMP 36.7; O2SAT 100
--- NOTE | 2024-06-08 01:11 | PCM.HP.STD ---
[facility] - General General Date of Admission: 06/08/24 Date of Service: 06/08/24 Chief Complaint: Progressively Worsening Ascending Edema. [facility] Narrative CHARLY RICHARD, is a 64 F with a past medical history of essential hypertension, hyperlipidemia, overweight; with BMI of 26.6 this admission, chronic DEBBIE, remote history of foot surgery (~1974), history of colon cancer; s/p Left hemicolectomy and colostomy on February 14, [address] Maximo Carrasco of general surgery with persistent hypoalbuminemia due to Severe Acute Protein-Calorie Malnutrition and progressively worsening ascending edema since that time who presents to [facility] ER complaining of an acute worsening of her chronic edema. Ms. Richard actually came to this ER for the same complaint 3 days ago with increasing swelling that went from her ankles up into her legs and thighs with 3-4+ pitting edema noted to the area just above the knees with her diuretic not helping to mobilize the fluid that has 'third spaced' into her tissues. She was then advised to increase her protein intake with severe hypoalbuminemia of 1.5 g/dL present at that time. Today she has has returned stating, the swelling is moving up into my abdomen though an ultrasound done in the ER does not show a fluid collection large enough to tap on paracentesis but she does admit to early satiety and decreased appetite due to the increased sensation of pressure in her abdomen. She states she has been taking her diuretic - but she is now urinating less than before. She denies any change in her ostomy output, chest pain, SOB, dysuria or history of EtOH abuse of NAFLD. In the ER she was noted to have a UA positive for Acute Cystitis; with microscopic hematuria complicated by Severe [id number]-Ofgygkl Protein-Calorie Malnutrition after recent Left hemicolectomy with colostomy with Severe Hypoalbuminemia of 1.3 g/dL and she was then admitted to the general medical floor for ongoing care for a stay that is expected to extend beyond 2 midnights. [facility] Medical History Anemia Colostomy in place Wears glasses Post-menopausal Cancer Back pain Heartburn Non-smoker History of edema History of echocardiogram High cholesterol HLD (hyperlipidemia) Pleural effusion Constipation Home Medications ?Medication ?Instructions ?Recorded ?Last Taken ?Type atorvastatin 40 mg tablet 40 mg PO QHS cholesterol 12/27/23 12/26/23 History REDOX 2 oz PO 5X/DAY PRN WBC 04/02/24 Unknown History ferrous sulfate 1 tab PO DAILY 06/04/24 Unknown History furosemide 40 mg tablet 40 mg PO DAILY PRN edema 06/04/24 Unknown History Allergy/AdvReac Type Severity Reaction Status Date / Time No Known Allergies Allergy Verified 06/07/24 20:03 Family History Father CAD (coronary artery disease) Heart disease Hypertension Mother Heart disease Hypertension Heart failure Brother Colon cancer Surgical History Hx of foot surgery S/P colostomy Social History household members: spouse and family Smoking Status: Never smoker alcohol intake: never substance use type: does not use ROS ROS Narrative Review of Systems: Constitutional: Patient denies fever or chills. Eyes: Patient denies changes in vision or discharge from eyes. ENT: Patient denies runny nose, sore throat and ear pain. Resp: Patient denies SOB or cough. CV: Patient admits to LE edema but she denies chest pain, palpitations or heart racing. GI: Patient admits to swelling in her abdomen but she denies pain, nausea, vomiting, diarrhea or constipation. : Patient admits to decreased UOP in spite of taking her diuretics as prescribed. MSK: Patient admits to ascending edema over the past few months but she denies arthralgias or myalgias. Skin: Patient denies rash, abscess or jaundice. Psych: Patient denies symptoms of uncontrolled depression or anxiety. Neuro: Patient denies headache, paresthesias or focal neurologic weakness. Allergy: Patient denies lip swelling, tongue swelling or urticaria. Hematology: Patient denies easy bleeding or easy bruisability. Endocrinology: Patient denies polyuria, polydipsia and polyphagia. 14 point ROS otherwise negative except for positives noted above in HPI. Vital Signs Vital Signs Vital Signs: 06/07/24 20:03 06/07/24 20:13 06/07/24 22:03 Temperature 98.2 F Temperature Source Oral Pulse Rate 62 69 Respiratory Rate 16 16 Respiratory Effort Normal Non-Labored Respiratory Pattern Normal Blood Pressure 172/81 H 123/85 H Blood Pressure Mean 111 97 Pulse Ox 98 98 Oxygen Delivery Method Room Air Room Air 06/08/24 00:00 06/08/24 00:47 Temperature 98.1 F Temperature Source Pulse Rate 65 62 Respiratory Rate 16 12 Respiratory Effort Respiratory Pattern Blood Pressure 122/72 H 139/79 H Blood Pressure Mean 88 99 Pulse Ox 94 100 Oxygen Delivery Method Room Air Weight Weight: 149 lb 14.4 oz Body Mass Index (BMI) 26.5 Physical Exam Const alert, oriented x3, no apparent distress and average body habitus General Appearance: cooperative HEENT normocephalic, head/scalp atraumatic, hearing grossly normal bilaterally and moist oral mucous membranes Eyes PERRL and EOMs intact bilaterally Neck no lymphadenopathy and supple Resp normal respiratory effort, no retractions, no use of accessory muscles and clear to auscultation bilaterally Cardio regular rate and regular rhythm GI normal to inspection, nondistended, normoactive bowel sounds, soft to palpation, non-tender and non-distended GI Narrative: Mild 'fluid wave' noted in abdomen with colostomy in place revealing normal output with no signs of bleeding. Extremity Extremity Narrative: Symmetrical 3-4+ bilateral LE edema extending up into abdomen. Skin Skin Narrative: Patient has no evidence of rash, abscess or jaundice. Neuro oriented x3, CN's II-XII intact bilaterally, moves all extremities and no focal motor deficits Sensorium / Orientation: awake, alert, oriented to person, oriented to place and oriented to time Speech: speech normal Psych affect normal Results Medical Records Data Attestation: I reviewed the patient's medical records Lab / Micro Data Attestation: I reviewed the patient's lab results. 06/08/24 04:26 06/08/24 04:26 Labs: Laboratory Results - last 24 hr 06/07/24 22:45: WBC 5.4, RBC 3.95 L, Hgb 11.6 L, Hct 34.7 L, MCV 87.8, MCH 29.4, MCHC 33.4, RDW Std Deviation 42.0, RDW Coeff of Jose 13.0, Plt Count 273, MPV 9.6, Immature Gran % (Auto) 0.200, Neut % (Auto) 59.4, Lymph % (Auto) 29.0, [place] % (Auto) 7.9, Eos % (Auto) 3.1, Baso % (Auto) 0.4, Absolute Neuts (auto) 3.2, Absolute Lymphs (auto) 1.57, Nucleated RBC % 0, Sodium 140, Potassium 4.6, Chloride 112 H, Carbon Dioxide 25.0, Anion Gap 3 L, BUN 38 H, Creatinine 1.19 H, Estim Creat Clear Calc 44.21, Est GFR (MDRD) Af Amer 59 L, Est GFR (MDRD) Non-Af 49 L, BUN/Creatinine Ratio 31.9 H, Glucose 104, Calcium 8.4 L, Total Bilirubin 0.10 L, Direct Bilirubin 0.05, AST 28, ALT 27, Alkaline Phosphatase 81, B-Natriuretic Peptide 89.1, Total Protein 4.6 L, Albumin 1.3 L, Globulin 3.3 06/07/24 22:48: Urine Color Yellow, Urine Clarity Clear, Urine pH 6.0, Ur Specific [place] 1.015, Urine Protein 500 H, Urine Glucose (UA) Normal, Urine Ketones Negative, Urine Occult Blood 150 H, Urine Nitrite Negative, Urine Bilirubin Negative, Urine Urobilinogen Normal, Ur Leukocyte Esterase 100 H, Urine RBC 5-10 SEEN, Urine WBC 10-25 SEEN, Ur Squamous Epith Cells 0-5 SEEN, Ur Transition Epith Cell 0-5 SEEN, Ur Renal Epithelial Cell 0-5 SEEN, Urine Bacteria 1+, Fine Granular Casts 0-5 SEEN, Urine Mucus 0 SEEN Imaging Radiology Impression Chest X-Ray 06/07/24 22:50 IMPRESSION: Stable blunting of the costophrenic angles by basilar pleural thickening versus small pleural effusions. Minimal infiltrate seen within one of the lung bases posteriorly on the lateral view, and could be due to atelectasis, aspiration pneumonitis, or minimal pneumonia. No evidence for pulmonary edema. Electronically Signed: Jasbir Alvarez MD at 23:42 EDT , Assessment & Plan Assessment/Plan (1) Acute cystitis with hematuria: (2) Edema due to hypoalbuminemia: (3) Severe malnutrition: (4) Elevated serum creatinine: (5) Status post left hemicolectomy: (6) Colon cancer: QUALIFIERS: Colon location: unspecified part of colon Qualified Code(s): C18.9 - Malignant neoplasm of colon, unspecified PLAN: Plan 1. Acute Cystitis; with microscopic hematuria - Admit to general medical floor. Give empiric IV Rocephin and await culture and sensitivity data. Give Tylenol prn pain or fever. 2. 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 Add Ensure Plus to meals. Finally, we will consult clinical dietitian to see this patient on-rounds in the AM for further recommendations with help appreciated in advance. 3. Essential hypertension - Continue home regimen as previous. 4. Hyperlipidemia - Resume statin and check Lipid Profile. 5. Overweight; with BMI of 26.6 this admission - Weight loss recommended. Check TSH. 6. Chronic DEBBIE - Stable with hemoglobin of 11.6 g/dL present on admission. 7. Remote history of foot surgery (~1974) - Noted for the sake of completeness. 8. DVT prophylaxis - Lovenox 40 mg sq daily plus SCD's. Total time: Approximately (but not less than) 55 minutes. Charges/Coding Visit Charges Inpatient E&M: 42587 Init Hosp L2
[2024-06-08 01:49] LABS: Magnesium 2.6 mg/dL (1.6-2.6); Phosphorus 4.1 mg/dL (2.5-4.9)
[2024-06-08 02:46] VITALS: BMI 26.1
[2024-06-08 02:57] VITALS: BP 156/80; PULSE 60; RESP 16; TEMP 36.5; O2SAT 97
[2024-06-08] MEDS: Ceftriaxone 1 GM/50 ML BAG IV ×2 (03:11→21:16)
[2024-06-08] MEDS: Albumin Human 25% (50 mL) 12.5 GM/50 ML IV.SOLN IV (03:46)
[2024-06-08 05:05] VITALS: BMI 26.1
[2024-06-08 05:21] LABS: Absolute Lymphocyte Count 1.31 X10^3/uL (0.83-4.51); Absolute Neutrophil Count 2.3 X10^3/uL (2.0-7.7); Basophil# 0.03 X10^3/uL; Basophil% 0.7 % (0-1); Eosinophil# 0.12 X10^3/uL; Eosinophils% 2.9 % (0-5); Hemoglobin 10.2 g/dL (12.0-15.0); Lymphocyte # 1.31 X10^3/ul (0.83-4.51); Lymphocyte % 31.2 % (19-41); Mean Corp Hgb Conc 32.9 g/dL (32-36); Mean Corpuscular Hgb 28.9 pg (27.0-32.0); Mean Corpuscular Volume 87.8 fL (81-99); Mean Platelet Vol. 10.3 fl (6.2-12.0); Monocyte# 0.39 X10^3/uL; Monocyte% 9.3 % (0-10); NRBC Flagged by Analyzer 0 % (0-5); Neutrophil # 2.34 X10^3/uL (2.7-7.7); Neutrophil % 55.7 % (47-70); Platelet Count 236 K/mm3 (150-450); RBC Distribution Width CV 13.2 % (11.6-14.6); RBC Distribution Width SD 42.8 fl (35.1-43.9); Red Blood Count 3.53 M/mm3 (4.2-5.4); White Blood Count 4.2 K/mm3 (4.4-11.0)
[2024-06-08 06:12] LABS: ALB/GLOB Ratio 0.5 RATIO (0.9-2.4); AST(SGOT) 24 U/L (15-37); Alanine Aminotransfer ALT/SGPT 22 U/L (13-56); Albumin, Serum 1.4 g/dL (3.2-5.0); Alkaline Phosphatase 70 U/L (45-117); Anion Gap 4 (5-15); BUN 38 mg/dL (7-18); BUN/Creat Ratio 36.2 RATIO (10-20); Calcium,Total 8.3 mg/dL (8.5-10.1); Chloride 113 mmol/L (98-107); Creatinine, Serum 1.05 mg/dL (0.55-1.02); EST Glomerular Filtration Rate 56 mL/min (>60); Est Glom Filt Rate - Afr Amer 68 mL/min (>60); Estimated Creatinine Clearance 49.73 ml/min; Globulin 2.8 g/dL (2.2-4.2); Glucose 94 mg/dL (74-106); Potassium 4.3 mmol/L (3.5-5.1); Protein, Total 4.2 g/dL (6.4-8.2); Sodium Level 141 mmol/L (136-145)
[2024-06-08 07:26] LABS: T4 Free Direct 0.72 ng/dL (0.76-1.46)
[2024-06-08] MEDS: Ensure Plus High Protein 120 ML LIQUID PO ×3 (08:28→17:20)
[2024-06-08] MEDS: Enoxaparin 40 MG/0.4 ML Syringe SC (08:29)
[2024-06-08] MEDS: Lactobacillis Acidophilus 1 CAP PO ×4 (08:29→21:16)
[2024-06-08 08:57] VITALS: BP 135/77; PULSE 56; RESP 16; TEMP 36.9; O2SAT 95
--- NOTE | 2024-06-08 11:16 | CASEMGMT ---
AIDAN JOHNSTON Assessment Face to Face with patient for initial?transition planning/care coordination assessment. AIDAN JOHNSTON introduced self and role at [facility], pt voices understanding. Pt is A&Ox4 and is resting comfortably in bed and is calm. Pt family at bedside. Care providers, pharmacy, and demographics verified. ? Admitting dx: Acute Cystitis with Microscopic Hematuria LACE Strata: 2 PCP: Michael Stanley Specialists: Nav (Onc) Preferred Pharmacy: [facility] Insurance: [employer]. Pt states that she does not receive Rx benefits but her current prescriptions are manageable. Pt was educated about [facility] Rx LNOK: Sarah Richard (). Jag Richard (Son) Living Arrangements: Pt lives with her and 2 adult sons in a 2 story home with a basement and 2 steps to enter ADLs/IADLs: Ind at baseline Transportation: Hires drivers. Horse and buggy for shorter distances DME: Denies all DME uses or needs at this time HHC/SNF: History with [facility] HH (SN) once the pt ostomy was placed Wound/Ostomy: Pt states that she cares for this per herself and at home and denies concerns or needs Plan: Anticipate home no needs. 6-Click is 20. PT/OT pending. At this time, the pt denies the need for HHC, OP Tx, CCN/Pt Link. Pt states that she feels safe at home with her family support and denies further concerns. CM to follow therapy. Donald Morocho RN, CM
[2024-06-08 15:00] VITALS: BP 122/68; PULSE 61; RESP 16; TEMP 36.8; O2SAT 98
[2024-06-08] MEDS: 0.9% Saline Lock 10 ML Syringe IV ×2 (21:04→22:27)
[2024-06-08 21:16] VITALS: BP 138/67; PULSE 70; RESP 18; TEMP 36.9; O2SAT 97
[2024-06-09 03:39] VITALS: BP 134/76; PULSE 63; RESP 17; TEMP 36.6; O2SAT 95
[2024-06-09 05:39] LABS: Absolute Lymphocyte Count 1.33 X10^3/uL (0.83-4.51); Absolute Neutrophil Count 3.3 X10^3/uL (2.0-7.7); Basophil# 0.03 X10^3/uL; Basophil% 0.6 % (0-1); Eosinophil# 0.17 X10^3/uL; Eosinophils% 3.2 % (0-5); Hematocrit 32.6 % (37-47); Hemoglobin 10.8 g/dL (12.0-15.0); Lymphocyte # 1.33 X10^3/ul (0.83-4.51); Lymphocyte % 25.3 % (19-41); Mean Corp Hgb Conc 33.1 g/dL (32-36); Mean Corpuscular Hgb 29.4 pg (27.0-32.0); Mean Corpuscular Volume 88.8 fL (81-99); Mean Platelet Vol. 9.9 fl (6.2-12.0); Monocyte# 0.42 X10^3/uL; NRBC Flagged by Analyzer 0 % (0-5); Neutrophil # 3.29 X10^3/uL (2.7-7.7); Neutrophil % 62.7 % (47-70); Platelet Count 229 K/mm3 (150-450); RBC Distribution Width CV 13.2 % (11.6-14.6); RBC Distribution Width SD 43.2 fl (35.1-43.9); Red Blood Count 3.67 M/mm3 (4.2-5.4); White Blood Count 5.3 K/mm3 (4.4-11.0)
[2024-06-09 06:00] VITALS: BMI 26.1
[2024-06-09 06:17] LABS: Anion Gap 4 (5-15); BUN 46 mg/dL (7-18); BUN/Creat Ratio 41.1 RATIO (10-20); Calcium,Total 8.1 mg/dL (8.5-10.1); Chloride 116 mmol/L (98-107); Creatinine, Serum 1.12 mg/dL (0.55-1.02); EST Glomerular Filtration Rate 52 mL/min (>60); Est Glom Filt Rate - Afr Amer 63 mL/min (>60); Estimated Creatinine Clearance 46.62 ml/min; Glucose 111 mg/dL (74-106); Potassium 4.6 mmol/L (3.5-5.1); Sodium Level 142 mmol/L (136-145)
--- NOTE | 2024-06-09 07:31 | PN.HOSP_ITS ---
Reason for Visit Reason for Visit: Diagnoses Malignant neoplasm of colon, unspecified (06/08/24) Unspecified severe protein-calorie malnutrition (06/08/24) Other disorders of plasma-protein metabolism, not elsewhere classified (06/08/24) Acute cystitis with hematuria (06/08/24) Other specified abnormal findings of blood chemistry (06/08/24) Acquired absence of other specified parts of digestive tract (06/08/24) Subjective Subjective Patient is a 64-year-old lady who presented with generalized weakness and anasarca. Patient was found to have acute cystitis admitted to regular nursing floor for management Objective Data Objective Data Vital Signs: Vital Signs Temp Pulse Resp BP Pulse Ox O2 Del Method 97.8 F 63 17 134/76 H 95 Room Air 06/09/24 03:39 06/09/24 03:39 06/09/24 03:39 06/09/24 03:39 06/09/24 03:39 06/09/24 03:39 Oxygen Delivery Method Room Air Weight: 66.9 kg Body Mass Index (BMI) 26.1 Intake & Output: Intake and Output for Last 24 Hours 06/07/24 06/08/24 06/09/24 23:59 23:59 23:59 Intake Total 1250 / 1250 250 / 250 Balance 1250 / 1250 250 / 250 Lab / Micro Data 06/09/24 05:07 06/09/24 05:07 Labs: Laboratory Results - last 24 hr 06/09/24 05:07: WBC 5.3, RBC 3.67 L, Hgb 10.8 L, Hct 32.6 L, MCV 88.8, MCH 29.4, MCHC 33.1, RDW Std Deviation 43.2, RDW Coeff of Jose 13.2, Plt Count 229, MPV 9.9, Immature Gran % (Auto) 0.200, Neut % (Auto) 62.7, Lymph % (Auto) 25.3, [place] % (Auto) 8.0, Eos % (Auto) 3.2, Baso % (Auto) 0.6, Absolute Neuts (auto) 3.3, Absolute Lymphs (auto) 1.33, Nucleated RBC % 0, Sodium 142, Potassium 4.6, C hloride 116 H, Carbon Dioxide 23.0, Anion Gap 4 L, BUN 46 H, Creatinine 1.12 H, Estim Creat Clear Calc 46.62, Est GFR (MDRD) Af Amer 63, Est GFR (MDRD) Non-Af 52 L, BUN/Creatinine Ratio 41.1 H, Glucose 111 H, Calcium 8.1 L Physical Exam Narrative GENERAL: cooperative HEENT: Atraumatic; normocephalic EYES; Anicteric, Normal Conjunctiva NECK; supple, normal thyroid, RESPIRATORY: Diminished to auscultation CARDIOVASCULAR: Regular S1 S2, GI: soft, normoactive bowel sounds, : No Renal angle tenderness; EXTREMITIES: Edema of both upper and lower extremities MUSCULOSKELETAL: no muscle wasting NEURO: Awake; no lateralizing signs. SKIN: No Rash PSYCH; Flat affect Assessment & Plan Assessment/Plan (1) Acute cystitis with hematuria: PLAN: Plan Patient is a 64-year-old lady who presented with generalized weakness and anasarca. Patient was found to have acute cystitis admitted to regular nursing floor for management 1. Acute cystitis without hematuria admitted to regular nursing floor started on ceftriaxone urine culture sent 2. Suspected protein calorie malnutrition ? Consult placed to dietitian 3. History of invasive adenocarcinoma ? Status post left Jules colectomy 4. Dyslipidemia ?Patient is on statin therapy, continued at home dose 5. DVT prophylaxis ? On enoxaparin Time spent in the patient's overall evaluation,decision-making process, review of diagnostic data, adjustment of management, discussion with other providers, nursing nursing and ancillary staff involved in patient's care documentation, 36 Minutes Charges/Coding Visit Charges Inpatient E&M: 46960 [facility] Hosp L2
[2024-06-09] MEDS: Ensure Plus High Protein 120 ML LIQUID PO ×3 (07:57→15:43)
[2024-06-09] MEDS: Enoxaparin 40 MG/0.4 ML Syringe SC (07:57)
[2024-06-09] MEDS: Lactobacillis Acidophilus 1 CAP PO ×2 (07:57→11:34)
[2024-06-09 08:38] VITALS: BP 141/73; PULSE 60; RESP 16; TEMP 36.6; O2SAT 97
[2024-06-09] MEDS: Ferrous Sulfate 325 MG Tablet PO (11:34)
[2024-06-09 13:25] VITALS: BP 134/79; PULSE 60; RESP 16; TEMP 36.3; O2SAT 96
--- NOTE | 2024-06-09 13:52 | DS.PCM_ITS ---
Providers Date of Admission: 06/08/24 Date of Discharge: 06/09/24 Primary Care Physician: Dr. Michael Stanley DO Reason For Visit: ACUTE CYSTITIS WITH MICROSCOPIC HEMATURIA & SEVERE Diagnosis Discharge Diagnosis (1) Acute cystitis with hematuria: Status: Acute Code(s): N30.01 - Acute cystitis with hematuria Plan Patient is a 64-year-old lady who presented with generalized weakness and anasarca. Patient was found to have acute cystitis admitted to regular nursing floor for management 1. Acute cystitis without hematuria admitted to regular nursing floor started on ceftriaxone urine culture sent ? Patient urine cultures came back negative patient requested to be discharged home 2. Suspected protein calorie malnutrition ? Consult placed to dietitian 3. History of invasive adenocarcinoma ? Status post left Jules colectomy 4. Dyslipidemia ?Patient is on statin therapy, continued at home dose 5. DVT prophylaxis ? On enoxaparin Time spent in the patient's overall evaluation,decision-making process, review of diagnostic data, adjustment of management, discussion with other providers, nursing nursing and ancillary staff involved in patient's care documentation, 36 Minutes Medications at Discharge Home Medications atorvastatin 40 mg tablet 40 mg PO QHS cholesterol 12/27/23 REDOX 2 oz PO 5X/DAY PRN WBC 04/02/24 ferrous sulfate 1 tab PO DAILY 06/04/24 furosemide 40 mg tablet 40 mg PO DAILY PRN edema 06/04/24 Physical Exam Narrative GENERAL: cooperative HEENT: Atraumatic; normocephalic EYES; Anicteric, Normal Conjunctiva NECK; supple, normal thyroid, RESPIRATORY: Diminished to auscultation CARDIOVASCULAR: Regular S1 S2, GI: soft, normoactive bowel sounds, : No Renal angle tenderness; EXTREMITIES: Edema of both upper and lower extremities MUSCULOSKELETAL: no muscle wasting NEURO: Awake; no lateralizing signs. SKIN: No Rash PSYCH; Flat affect Weight / BMI Weight Weight: 66.9 kg Body Mass Index (BMI) 26.1 ABG / Lab / Microbiology Data 06/09/24 05:07 06/09/24 05:07 Laboratory: Laboratory Results - last 24 hr 06/09/24 05:07: WBC 5.3, RBC 3.67 L, Hgb 10.8 L, Hct 32.6 L, MCV 88.8, MCH 29.4, MCHC 33.1, RDW Std Deviation 43.2, RDW Coeff of Jose 13.2, Plt Count 229, MPV 9.9, Immature Gran % (Auto) 0.200, Neut % (Auto) 62.7, Lymph % (Auto) 25.3, [place] % (Auto) 8.0, Eos % (Auto) 3.2, Baso % (Auto) 0.6, Absolute Neuts (auto) 3.3, Absolute Lymphs (auto) 1.33, Nucleated RBC % 0, Sodium 142, Potassium 4.6, C hloride 116 H, Carbon Dioxide 23.0, Anion Gap 4 L, BUN 46 H, Creatinine 1.12 H, Estim Creat Clear Calc 46.62, Est GFR (MDRD) Af Amer 63, Est GFR (MDRD) Non-Af 52 L, BUN/Creatinine Ratio 41.1 H, Glucose 111 H, Calcium 8.1 L Microbiology: Microbiology 06/08/24 00:14 Urine, Clean Catch Urine Culture - Preliminary Culture exhibits no growth. D/C Instructions Discharge Diet: No restrictions Discharge Activity: Return to Normal Activity Call your doctor if you observe: Fever of 101 or Higher, Shortness of breath, Fainting spells and Chest pain Meaningful Use Info Meaningful Use Meaningful Use Diagnoses (Choose all that apply): None applicable Ischemic Stroke Statin Dosing Therapy Reference: STATIN DOSE THERAPY REFERENCE: * Patients > 75 years receive moderate or high dose statin therapy. * Patients 75 years or YOUNGER should receive HIGH intensity statin dose unless contraindicated. You will be required to document reason for non-treatment if statin daily dose does not meet guidelines. HIGH DOSE STATIN THERAPY DAILY Atorvastatin > than or = to 40 mg Rosuvastatin > than or = to 20 mg Amlodipine + Atorvastatin > than or = to 2.5/40 mg Ezetimibe + Simvastatin 10/80 mg Simvastatin 80mg Discharge Plan Admission Admit Date/Time: 06/08/24 01:08 Attending Provider: Jag Oscar Primary Care Provider: Michael Stanley Consulting Providers: Jag Muhammad; Pollo Ma Discharge Orders/Prescriptions Prescriptions: Continued atorvastatin 40 mg tablet 40 mg PO QHS REDOX 2 oz PO 5X/DAY PRN (Reason: WBC) furosemide 40 mg tablet 40 mg PO DAILY PRN (Reason: edema) ferrous sulfate 1 tab PO DAILY Referrals / Follow Up: Jaden,Michael, DO [Primary Care Provider] - Within 1 Week Disposition Disposition (needs filled in before D/C Order can be placed): Home, Self Care Charges/Coding Visit Charges Inpatient E&M: 84169 Disch Hosp >30min
--- NOTE | 2024-06-09 15:29 | NS ---
06/09/24: Met with pt per RN Guerline's request. Pt reports Dr. Gutiérrez wanted pt to meet with an RDN outpatient every 2 weeks after discharge. RDN had RN text MD and he recommended getting a referral from their PCP. RN relayed this information to patient. RDN provided Ensure coupons and recommendations for Ensure Max Protein or Premier Protein BID between meals. Pt reports understanding. Confirmed pt had High protein foods list handout that was provided by RDN on 06/08. Pt has RDN contact information. Kristie Nelson RDN, LD
== END 2024-06-09 15:54 | disposition home or self-care (01) | DRG 689 ==
LOC: ED 06-08 01:12 → MS3 06-08 01:53
PROVIDERS: Family Medicine; Admitting Provider Internal Medicine; Emergency Provider Emergency Medicine; PCP Family Medicine; Visit Provider Internal Medicine
DX: N30.01 Acute cystitis with hematuria (principal); E43 Unspecified severe protein-calorie malnutrition; C18.9 Malignant neoplasm of colon, unspecified; E88.09 Other disorders of plasma-protein metabolism, not elsewhere classified; D50.9 Iron deficiency anemia, unspecified; E66.3 Overweight; I10 Essential (primary) hypertension; Z93.3 Colostomy status; E78.00 Pure hypercholesterolemia, unspecified; Z68.26 Body mass index [BMI] 26.0-26.9, adult; R79.89 Other specified abnormal findings of blood chemistry; Z79.899 Other long term (current) drug therapy; R60.9 Edema, unspecified
CPT/HCPCS: 36415; 71046; 80048; 80053; 80076; 81001; 83735; 83880; 84100; 84439; 84443; 85025; 87086; 87088; 97161; 97802; 99285; P9047; A4216

== ENCOUNTER 2024-06-15 22:35 | Emergency (ER) | payer OTHER, SELFPAY ==
[2024-06-15 22:35] VITALS: BP 155/66; PULSE 59; RESP 16; TEMP 36.3; O2SAT 98; BMI 27.6
--- NOTE | 2024-06-15 22:59 | ED.VIS.GI ---
HPI HPI - GI History of Present Illness Chief Complaint: Abd Pain Informant: patient and family Abdominal Pain/Flank Pain Onset: Weeks Context: Gradual Onset Timing: Continuous Quality: Dull Location: Diffuse Worsened by: Movement Relieved by: Nothing Nausea/Vomiting/Emesis GI Symptom: Positive for Nausea; Negative for Vomiting Diarrhea/Melena/Hematochezia GI Symptom: Negative for Diarrhea, Melena or Hematochezia Associated Symptoms Associated Symptoms: Negative for Dysuria, Frequency or Hematuria Narrative Narrative: Patient presents with abdominal pain and swelling that has gradually been getting worse. Patient states that her primary care physician was trying to arrange for outpatient paracentesis but the pain became worse tonight. Patient denies any fevers or chills. Patient admits to some nausea but denies any vomiting. Patient denies any diarrhea, melena, or hematochezia. Patient describes her pain as dull. Patient states her pain is diffuse across her entire abdomen. Patient states it is worse with any activity. Patient is nothing seems to help with it. Patient denies any urinary complaints. PFSH PFSH Medical History Protein deficiency Anemia Colostomy in place Wears glasses Post-menopausal Cancer Back pain Heartburn Non-smoker History of edema History of echocardiogram High cholesterol HLD (hyperlipidemia) Pleural effusion Constipation Home Medications ?Medication ?Instructions ?Recorded ?Last Taken ?Type atorvastatin 40 mg tablet 40 mg PO QHS cholesterol 12/27/23 12/26/23 History REDOX 2 oz PO 5X/DAY PRN WBC 04/02/24 Unknown History ferrous sulfate 1 tab PO DAILY 06/04/24 Unknown History furosemide 40 mg tablet 40 mg PO DAILY PRN edema 06/04/24 Unknown History Allergy/AdvReac Type Severity Reaction Status Date / Time No Known Allergies Allergy Verified 06/15/24 22:38 Family History Father CAD (coronary artery disease) Heart disease Hypertension Mother Heart disease Hypertension Heart failure Brother Colon cancer Surgical History Hx of foot surgery S/P colostomy Social History household members: spouse and family Smoking Status: Never smoker alcohol intake: never substance use type: does not use ROS ROS ED Constitutional Constitutional ED: Denies chills or fever(s) Eyes Eyes: Denies blurry vision or change in vision ENT ENT ED: Denies rhinorrhea or sore throat Cardiovascular Cardiovascular: Denies chest pain or palpitations Respiratory/Chest Respiratory/Chest: Denies cough or dyspnea Gastrointestinal Gastrointestinal: Reports abdominal pain and nausea; Denies vomiting Genitourinary Genitourinary ED: Denies dysuria or hematuria Musculoskeletal Musculoskeletal: Reports back pain; Denies neck pain Integumentary Denies abscess or rash Neurologic Neurologic: Denies headache(s) or weakness Allergic/Immunologic Allergic/Immunologic ED: Denies mouth swelling or urticaria EXAM Physical Exam Const Vital Signs: 06/15/24 22:35 06/16/24 00:35 06/16/24 02:35 Temperature 97.3 F L Temperature Source Temporal Pulse Rate 59 L 53 L 59 L Respiratory Rate 16 18 14 Blood Pressure 155/66 H 157/76 H 161/74 H Blood Pressure Mean 95 103 103 Pulse Ox 98 96 95 Oxygen Delivery Method Room Air Room Air Room Air 06/16/24 04:00 Temperature Temperature Source Pulse Rate 58 L Respiratory Rate 16 Blood Pressure 152/80 H Blood Pressure Mean 104 Pulse Ox 96 Oxygen Delivery Method Room Air Positive well nourished and well developed General Appearance ED: well developed and NAD HEENT Reports moist mucous membranes Neck supple and no JVD Resp normal respiratory effort and clear to auscultation bilaterally Cardio regular rate and regular rhythm GI non-tender GI Narrative: There is some mild distention and ascites. There is no tenderness. There is no rebound or guarding noted. Palpation: soft; Negative for guarding or rebound tenderness present Extremity Extremity Narrative: There is 3+ edema of the lower extremities bilaterally. General Extremety ED: Yes edema General Extremity: edema Neuro CN's II-XII intact bilaterally, moves all extremities and no sensory deficits noted Sensorium / Orientation: alert, oriented to person, oriented to place and oriented to time Motor Exam: strength 5/5 throughout Psych mental status grossly normal MDM MDM MDM Narrative Medical decision making narrative: Differential diagnosis includes ascites, electrolyte abnormality, congestive heart failure, pancreatitis, coagulopathy, and acute kidney injury. CBC will be obtained to assess for leukocytosis and anemia. Comprehensive metabolic profile will be obtained to assess for hepatic function, renal function, and electrolyte abnormality. Lipase will be obtained to assess for pancreatitis. PT was INR and PTT will be obtained to assess for coagulopathy. BNP will be obtained to assess for congestive heart failure. Chest x-ray will be obtained to assess for congestive heart failure and pneumonia. Lab Data Attestation: I reviewed the patient's lab results. Lab results narrative: CBC was reviewed. There is a mild anemia with a hemoglobin of 11.5 and hematocrit 34.0. Comprehensive metabolic profile was reviewed. BUN was 77 and creatinine was 1.75. These are increased from previous results. PT with INR and PTT were reviewed and were within normal limits. BNP was reviewed and was normal at 88.7. Lipase was reviewed and was normal at 53. Repeat BMP was reviewed and was essentially unchanged. Creatinine was 1.8 and BUN was 76. Anion gap was normal. Labs: Laboratory Results - last 24 hr 06/15/24 06/16/24 23:27 04:55 WBC 6.5 RBC 3.86 L Hgb 11.5 L Hct 34.0 L MCV 88.1 MCH 29.8 MCHC 33.8 RDW Std Deviation 43.1 RDW Coeff of Jose 13.4 Plt Count 284 MPV 10.4 Immature Gran % (Auto) 1.800 H Neut % (Auto) 60.6 Lymph % (Auto) 23.6 [place] % (Auto) 10.6 H Eos % (Auto) 2.8 Baso % (Auto) 0.6 Absolute Neuts (auto) 4.0 Absolute Lymphs (auto) 1.54 Nucleated RBC % 0 PT 13.5 INR 1.0 APTT 32.0 Sodium 140 140 Potassium 5.0 4.4 Chloride 113 H 114 H Carbon Dioxide 22.0 22.0 Anion Gap 5 4 L BUN 77 H 76 H Creatinine 1.75 H 1.80 H Estim Creat Clear Calc 30.62 29.77 Est GFR (MDRD) Af Amer 38 L 36 L Est GFR (MDRD) Non-Af 31 L 30 L BUN/Creatinine Ratio 44.0 H 42.2 H Glucose 103 97 Calcium 8.1 L 8.1 L Total Bilirubin 0.10 L AST 29 ALT 29 Alkaline Phosphatase 75 B-Natriuretic Peptide 88.7 Total Protein 4.6 L Albumin 1.2 L Globulin 3.4 Albumin/Globulin Ratio 0.4 L Lipase 53 Radiography Diagnostic Testing: Clinical Impression(s) from Imaging Studies Chest X-Ray 06/15/24 23:35 IMPRESSION: Small bilateral pleural effusions with adjacent atelectasis. Recommend follow-up to resolution. Electronically Signed: Preet Giraldo MD at 23:50 EDT , PA and lateral chest x-ray was obtained. There are 2 views. On my independent interpretation, lung asher show small bilateral pleural effusions and atelectasis. There is normal cardiac silhouette. Bony thorax is normal. Radiologist also interpreted the x-ray and agrees. Treatment and Re-Evaluation :: Patient was advised of her findings. Case was discussed with the hospitalist. He stated he admitted the patient to the hospital recently for similar symptoms and does not feel the patient would benefit from inpatient treatment. He recommended giving the patient 25 g of albumin and a small dose of fluids. Patient and family were instructed to follow-up with her primary care physician in 3 to 5 days. Patient was instructed to return if worse in any way. Patient and family understand and are agreeable with the plan. All questions were answered. Discharge Plan Triage Chief Complaint: Abd Pain ED Provider: Jann Sandhu Dx/Rx/DC Orders Clinical Impression: Peripheral edema, S/P colostomy, Edema due to hypoalbuminemia Instructions: ED Peripheral Edema, Bilateral Prescriptions: No Action atorvastatin 40 mg tablet 40 mg PO QHS REDOX 2 oz PO 5X/DAY PRN (Reason: WBC) furosemide 40 mg tablet 40 mg PO DAILY PRN (Reason: edema) ferrous sulfate 1 tab PO DAILY Primary Care Provider: Michael Stanley Referrals: Michael Stanley DO [Primary Care Provider] - 3-5 Days Print Language: Trin[place] Disposition Disposition: Home, Self Care
--- NOTE | 2024-06-15 23:35 | RAD_ITS ---
INDICATION: Edema EXAMINATION/TECHNIQUE: X-RAY - XR Chest 2 Views COMPARISON: 06/07/2024 chest radiograph. Findings: Single frontal view of the chest. LUNG PARENCHYMA/PLEURA: Small bilateral pleural effusions with adjacent atelectasis. No pneumothorax. HEART/GREAT VESSELS: Cardiomediastinal silhouette is unremarkable. BONES: Osseous structures are unremarkable for age. RAD/Chest PA and Lateral IMPRESSION: Small bilateral pleural effusions with adjacent atelectasis. Recommend follow-up to resolution. Electronically Signed: Preet Giraldo MD at 23:50 EDT ,
[2024-06-15 23:53] LABS: Prothrombin Time (Protime)PT. 13.5 SECONDS (11.7-14.9)
[2024-06-15 23:59] LABS: ALB/GLOB Ratio 0.4 RATIO (0.9-2.4); AST(SGOT) 29 U/L (15-37); Alanine Aminotransfer ALT/SGPT 29 U/L (13-56); Albumin, Serum 1.2 g/dL (3.2-5.0); Alkaline Phosphatase 75 U/L (45-117); Anion Gap 5 (5-15); BUN 77 mg/dL (7-18); Calcium,Total 8.1 mg/dL (8.5-10.1); Chloride 113 mmol/L (98-107); Creatinine, Serum 1.75 mg/dL (0.55-1.02); EST Glomerular Filtration Rate 31 mL/min (>60); Est Glom Filt Rate - Afr Amer 38 mL/min (>60); Estimated Creatinine Clearance 30.62 ml/min; Globulin 3.4 g/dL (2.2-4.2); Glucose 103 mg/dL (74-106); Lipase 53 U/L (13-75); Protein, Total 4.6 g/dL (6.4-8.2); Sodium Level 140 mmol/L (136-145)
[2024-06-16 00:11] LABS: Absolute Lymphocyte Count 1.54 X10^3/uL (0.83-4.51); Basophil# 0.04 X10^3/uL; Basophil% 0.6 % (0-1); Eosinophil# 0.18 X10^3/uL; Eosinophils% 2.8 % (0-5); Hemoglobin 11.5 g/dL (12.0-15.0); Lymphocyte # 1.54 X10^3/ul (0.83-4.51); Lymphocyte % 23.6 % (19-41); Mean Corp Hgb Conc 33.8 g/dL (32-36); Mean Corpuscular Hgb 29.8 pg (27.0-32.0); Mean Corpuscular Volume 88.1 fL (81-99); Mean Platelet Vol. 10.4 fl (6.2-12.0); Monocyte# 0.69 X10^3/uL; Monocyte% 10.6 % (0-10); NRBC Flagged by Analyzer 0 % (0-5); Neutrophil # 3.96 X10^3/uL (2.7-7.7); Neutrophil % 60.6 % (47-70); Platelet Count 284 K/mm3 (150-450); RBC Distribution Width CV 13.4 % (11.6-14.6); RBC Distribution Width SD 43.1 fl (35.1-43.9); Red Blood Count 3.86 M/mm3 (4.2-5.4); White Blood Count 6.5 K/mm3 (4.4-11.0)
[2024-06-16 00:35] VITALS: BP 157/76; PULSE 53; RESP 18; O2SAT 96
[2024-06-16 01:37] LABS: BNP,B-Type NATRIURETIC PEPTIDE 88.7 pg/mL (0-100)
[2024-06-16 02:35] VITALS: BP 161/74; PULSE 59; RESP 14; O2SAT 95
[2024-06-16] MEDS: Albumin Human 25% (100 mL) 25 GM/100 ML BAG IV (03:14)
[2024-06-16 04:00] VITALS: BP 152/80; PULSE 58; RESP 16; O2SAT 96
[2024-06-16 05:24] LABS: Anion Gap 4 (5-15); BUN 76 mg/dL (7-18); BUN/Creat Ratio 42.2 RATIO (10-20); Calcium,Total 8.1 mg/dL (8.5-10.1); Chloride 114 mmol/L (98-107); EST Glomerular Filtration Rate 30 mL/min (>60); Est Glom Filt Rate - Afr Amer 36 mL/min (>60); Estimated Creatinine Clearance 29.77 ml/min; Glucose 97 mg/dL (74-106); Potassium 4.4 mmol/L (3.5-5.1); Sodium Level 140 mmol/L (136-145)
[2024-06-16 05:46] VITALS: BP 150/72; PULSE 64; RESP 18; TEMP 36.8; O2SAT 94
== END 2024-06-16 05:50 | disposition home or self-care (01) ==
PROVIDERS: Emergency Provider Emergency Medicine; PCP Family Medicine; Visit Provider Emergency Medicine
DX: R19.00 Intra-abdominal and pelvic swelling, mass and lump, unspecified site (principal); Z93.3 Colostomy status; E88.09 Other disorders of plasma-protein metabolism, not elsewhere classified; E78.00 Pure hypercholesterolemia, unspecified; Z79.899 Other long term (current) drug therapy; R60.9 Edema, unspecified
CPT/HCPCS: 71046; 80048; 80053; 83690; 83880; 85025; 85610; 85730; 96365; 96366; 99282; P9047; A4216

== ENCOUNTER → 2024-06-21 | Outpatient (CLI) | payer SELFPAY, OTHER | END | disposition home or self-care (01) | LOC: US 07:39 | PROVIDERS: PCP Family Medicine; Referring Provider Nurse Practitioner Family; Visit Provider Nurse Practitioner Family | DX: R18.8 Other ascites (principal) | CPT/HCPCS: 76705 ==

== ENCOUNTER → 2024-08-02 | Outpatient (CLI) | payer OTHER, SELFPAY ==
[2024-08-02 10:55] LABS: Bacteria 0 SEEN /hpf (None Seen); Color, Urine Yellow (Yellow); Glucose, Dipstick 50 mg/dl (Normal); Ketone-Dipstick Negative (Negative); Leukocyte Esterase-Dipstick 100 /ul (Negative); Mucous, Urine 0 SEEN /hpf (<or=2+); Nitrite-Dipstick Negative (Negative); Occult Blood-Urine 25 /ul (Negative); Protein-Dipstick 100 mg/dl (Negative); Red Blood Cells-Urine 0 SEEN /hpf (0-5); Squamous Epithelial Cells - UA 0 SEEN /hpf (5-10); Urine Bilirubin Dipstick Negative (Negative); Urine Clarity Sl. Cloudy (Clear); Urine Urobilinogen Normal (Normal); Urine pH 6.5 (5.0 - 8.0)
[2024-08-02 11:03] LABS: Protein, Urine (Random) 76.4 mg/dL (<11.9)
[2024-08-02 11:04] LABS: White Blood Cells 5-10 SEEN /hpf (0-5)
[2024-08-02 11:20] LABS: 24HR. UA Prot. Total Volume 4000 mL; Urine Protein (24 Hour) 46.3 mg/dL (<11.9)
[2024-08-02 11:25] LABS: BUN 22 mg/dL (7-18); BUN/Creat Ratio 22.7 RATIO (10-20); Calcium,Total 9.1 mg/dL (8.5-10.1); Chloride 102 mmol/L (98-107); Creatinine, Serum 0.97 mg/dL (0.55-1.02); EST Glomerular Filtration Rate 62 mL/min (>60); Est Glom Filt Rate - Afr Amer 74 mL/min (>60); Glucose 125 mg/dL (74-106); Magnesium 2.1 mg/dL (1.6-2.6); Phosphorus 2.4 mg/dL (2.5-4.9); Potassium 3.3 mmol/L (3.5-5.1); Sodium Level 137 mmol/L (136-145)
== END | disposition home or self-care (01) ==
PROVIDERS: PCP Family Medicine
DX: N04.1 Nephrotic syndrome with focal and segmental glomerular lesions (principal)
CPT/HCPCS: 36415; 80069; 81001; 81050; 82570; 83735; 84156

== ENCOUNTER → 2024-08-22 | Outpatient (CLI) | payer OTHER, SELFPAY ==
[2024-08-22 09:08] LABS: Bacteria 0 SEEN /hpf (None Seen); Mucous, Urine 0 SEEN /hpf (<or=2+); Squamous Epithelial Cells - UA 0 SEEN /hpf (5-10)
[2024-08-22 09:16] LABS: Hematocrit 36.4 % (37-47)
[2024-08-22 09:23] LABS: Color, Urine Yellow (Yellow); Glucose, Dipstick Normal (Normal); Ketone-Dipstick Negative (Negative); Leukocyte Esterase-Dipstick 25 /ul (Negative); Nitrite-Dipstick Negative (Negative); Occult Blood-Urine 10 /ul (Negative); Protein-Dipstick 30 mg/dl (Negative); Specific Gravity, Urine 1.015 (1.002-1.030); Urine Bilirubin Dipstick Negative (Negative); Urine Clarity Sl. Cloudy (Clear); Urine Urobilinogen Normal (Normal)
[2024-08-22 09:29] LABS: Protein, Urine (Random) 30.2 mg/dL (<11.9)
[2024-08-22 09:30] LABS: Red Blood Cells-Urine 0-5 SEEN /hpf (0-5); White Blood Cells 0-5 SEEN /hpf (0-5)
[2024-08-22 09:33] LABS: Albumin, Serum 2.8 g/dL (3.2-5.0); BUN 20 mg/dL (7-18); BUN/Creat Ratio 22.9 RATIO (10-20); Calcium,Total 8.8 mg/dL (8.5-10.1); Chloride 101 mmol/L (98-107); Creatinine, Serum 0.88 mg/dL (0.55-1.02); EST Glomerular Filtration Rate 69 mL/min (>60); Est Glom Filt Rate - Afr Amer 84 mL/min (>60); Ferritin 213 ng/mL (8-252); Glucose 95 mg/dL (74-106); Iron 101 ug/dL (50-170); Iron Binding Capacity,Total 278 ug/dL (250-450); Magnesium 2.1 mg/dL (1.6-2.6); PERCENT IRON SATURATION 36.3 % (15.0-55.0); Phosphorus 2.7 mg/dL (2.5-4.9); Potassium 3.1 mmol/L (3.5-5.1); Sodium Level 139 mmol/L (136-145); Vitamin D,25 Hydroxy 34.7 ng/mL
[2024-08-22 09:40] LABS: PTHIN 73.1 pg/mL (18.4-80.1)
[2024-08-22 14:46] LABS: 24HR. UA Prot. Total Volume 3100 mL
== END | disposition home or self-care (01) ==
PROVIDERS: PCP Family Medicine; Referring Provider Internal Medicine Nephrology; Visit Provider Internal Medicine Nephrology
DX: N04.1 Nephrotic syndrome with focal and segmental glomerular lesions (principal)
CPT/HCPCS: 36415; 80069; 81001; 81050; 82306; 82570; 82728; 83540; 83550; 83735; 83970; 84156; 85014; 85018

== ENCOUNTER → 2024-09-19 | Outpatient (CLI) | payer OTHER, SELFPAY ==
[2024-09-19 08:49] LABS: Albumin, Serum 3.1 g/dL (3.2-5.0); BUN 22 mg/dL (7-18); BUN/Creat Ratio 26.4 RATIO (10-20); Calcium,Total 9.4 mg/dL (8.5-10.1); Chloride 101 mmol/L (98-107); Creatinine, Serum 0.83 mg/dL (0.55-1.02); EST Glomerular Filtration Rate 73 mL/min (>60); Est Glom Filt Rate - Afr Amer 89 mL/min (>60); Glucose 109 mg/dL (74-106); Phosphorus 2.8 mg/dL (2.5-4.9); Potassium 3.2 mmol/L (3.5-5.1); Sodium Level 138 mmol/L (136-145)
== END | disposition home or self-care (01) ==
PROVIDERS: PCP Family Medicine; Referring Provider Internal Medicine Nephrology; Visit Provider Internal Medicine Nephrology
DX: N04.1 Nephrotic syndrome with focal and segmental glomerular lesions (principal); R80.9 Proteinuria, unspecified; D64.9 Anemia, unspecified; E55.9 Vitamin D deficiency, unspecified; R60.9 Edema, unspecified
CPT/HCPCS: 36415; 80069

== ENCOUNTER → 2024-10-24 | Outpatient (CLI) | payer SELFPAY, OTHER ==
--- NOTE | 2024-10-24 10:56 | CT_ITS ---
PROCEDURE: CT CHEST, ABD, PEL W/CONTRAST REASON FOR EXAM: H/O COLON CA; ASCITES, PLEURAL EFFUSION TECHNIQUE: Chest, abdomen and pelvis CT with intravenous contrast. Oral contrast was also used. CONTRAST: 300 cc of Isovue 300. COMPARISON: Comparison is made with prior study dated March 14, 2024. FINDINGS: CT CHEST: Hardware: None. Lymph nodes: No mediastinal hilar or axillary lymphadenopathy. Heart and Vasculature: Normal heart size. No pericardial effusion. Thoracic aorta and pulmonary arteries are unremarkable. Lungs and Airways: Mild degree of increased markings at the lung bases suggestive of mild scarring and/or atelectasis. Pleura: No pleural effusion. No pneumothorax. Bones: Degenerative changes of the thoracic spine. CT ABDOMEN/PELVIS: Liver: Minimal degree of central intrahepatic biliary ductal dilatation. Mild hepatomegaly. Gallbladder: Multiple small gallstones are seen within the gallbladder lumen. Spleen: Unremarkable. Pancreas: Unremarkable. Adrenals: Unremarkable. Kidneys: Unremarkable. Bladder: Unremarkable. Reproductive Organs: Unremarkable. Bowel: A colostomy is seen in the anterior left mid abdomen. Appendix: Normal. Lymph nodes: No suspicious lymph node enlargement. Vasculature: Mild diffuse atherosclerotic calcifications are noted. Peritoneum / Retroperitoneum: No ascites. No free air. Bones: Degenerative changes of the spine.. Stable anterior listhesis of L4 on L5. CT/CT Chest, Abd, Pel w/Contrast IMPRESSION: Status post colostomy in the left anterior abdominal wall. Stable appearance. Multiple small gallstones. One or more dose reduction techniques were used (e.g., Automated exposure contr ol, adjustment of the mA and/or kV according to patient size, use of iterative reconstruction technique). Reading Location: [place] [id number]
== END | disposition home or self-care (01) ==
LOC: CT 08:23
PROVIDERS: PCP Family Medicine; Referring Provider Nurse Practitioner Family; Visit Provider Nurse Practitioner Family
DX: Z85.038 Personal history of other malignant neoplasm of large intestine (principal); R18.8 Other ascites
CPT/HCPCS: 71260; 74177; Q9967; A4216

== ENCOUNTER → 2024-11-27 | Outpatient (CLI) | payer OTHER, SELFPAY ==
[2024-11-27 09:05] LABS: Bacteria 0 SEEN /hpf (None Seen); Mucous, Urine 0 SEEN /hpf (<or=2+); Squamous Epithelial Cells - UA 0 SEEN /hpf (5-10)
[2024-11-27 09:22] LABS: Hematocrit 34.5 % (37-47); Hemoglobin 11.7 g/dL (12.0-15.0)
[2024-11-27 09:34] LABS: PTHIN 43 pg/mL (11-61)
[2024-11-27 09:51] LABS: Color, Urine Yellow (Yellow); Glucose, Dipstick Normal (Normal); Ketone-Dipstick Negative (Negative); Leukocyte Esterase-Dipstick 100 /ul (Negative); Nitrite-Dipstick Negative (Negative); Occult Blood-Urine 10 /ul (Negative); Protein-Dipstick 15 mg/dl (Negative); Urine Bilirubin Dipstick Negative (Negative); Urine Clarity Sl. Cloudy (Clear); Urine Urobilinogen Normal (Normal)
[2024-11-27 09:54] LABS: Albumin, Serum 3.9 g/dL (3.4-4.8); Anion Gap 11 (5-15); BUN 19 mg/dL (4-19); BUN/Creat Ratio 21.4 RATIO (10-20); Calcium,Total 9.4 mg/dL (7.6-11.0); Carbon Dioxide 26.4 mmol/L (21.0-32.0); Chloride 102 mmol/L (98-108); Creatinine, Serum 0.88 mg/dL (0.70-1.20); EST Glomerular Filtration Rate 74 (>60); Ferritin 182 ng/mL (22-378); Glucose 139 mg/dL (70-99); Iron 69 ug/dL (50-170); Iron Binding Capacity,Total 254 ug/dL (250-450); Iron Binding Capacity,Unsat 185 ug/dL (228-428); Phosphorus 3.5 mg/dL (2.7-4.5); Potassium 3.8 mmol/L (3.3-5.1); Sodium Level 140 mmol/L (133-145); Vitamin D,25 Hydroxy 46.4 ng/mL (30-100)
[2024-11-27 10:11] LABS: White Blood Cells 0-5 SEEN /hpf (0-5)
[2024-11-27 10:12] LABS: Red Blood Cells-Urine 0-5 SEEN /hpf (0-5)
[2024-11-27 10:58] LABS: 24 Hour Urine Protein 201.5 mg/24HR (<150 MG/24HR); 24HR. UA Prot. Total Volume 1550 mL
[2024-11-27 18:28] LABS: Protein:Creat Ratio 140 mg/g CRE (0-200)
== END | disposition home or self-care (01) ==
PROVIDERS: Referring Provider Internal Medicine Nephrology; Visit Provider Internal Medicine Nephrology
DX: N04.1 Nephrotic syndrome with focal and segmental glomerular lesions (principal); R80.9 Proteinuria, unspecified; D64.9 Anemia, unspecified; E55.9 Vitamin D deficiency, unspecified; R60.9 Edema, unspecified
CPT/HCPCS: 36415; 80069; 81001; 81050; 82306; 82570; 82728; 83540; 83550; 83735; 83970; 84156; 85014; 85018